=== PATIENT | female | born 1955 | race Caucasian/White ===

== ENCOUNTER → 2019-08-05 09:35 | Outpatient (BNVA) | payer MEDICARE, BC, SELFPAY | PROVIDERS: Family Provider Family Medicine; PCP Family Medicine; Visit Provider Urology | DX: N30.20 Other chronic cystitis without hematuria (principal) | CPT/HCPCS: 81001 ==

== ENCOUNTER → 2019-11-05 09:23 | Outpatient (BNVA) | payer MEDICARE, BC, SELFPAY | PROVIDERS: Family Provider Family Medicine; PCP Family Medicine; Visit Provider Urology | DX: N30.20 Other chronic cystitis without hematuria (principal) | CPT/HCPCS: 80053; 81001; 87077; 87086; 87186 ==

== ENCOUNTER → 2019-12-16 09:03 | Outpatient (BNVA) | payer MEDICARE, BC, SELFPAY | PROVIDERS: Family Provider Family Medicine; PCP Family Medicine; Visit Provider Urology | DX: N30.20 Other chronic cystitis without hematuria (principal) | CPT/HCPCS: 81001 ==

== ENCOUNTER 2020-05-16 13:00 | Outpatient (CLI) | payer MEDICARE, BC, SELFPAY ==
--- NOTE | 2020-05-16 13:08 | MM_ITS ---
WS: [id number] BILATERAL DIGITAL SCREENING MAMMOGRAPHY WITH CAD CLINICAL INFORMATION: SCREENING HISTORY: Screening mammogram. No current complaints. COMPARISON: February 20, 2018 TECHNIQUE: Bilateral CC and MLO views. FINDINGS: Scattered fibroglandular densities bilaterally. No suspicious focal mass, asymmetry, calcifications, or architectural distortion. No evidence of malignancy. MM/[place] [address] IMPRESSION: BI-RADS: 1-Negative FOLLOW UP: 1 Year Follow-up Recommend return to annual screening mammography.
== END 2020-05-16 13:01 | disposition home or self-care (01) ==
LOC: RADSHAW 13:04
PROVIDERS: Family Provider Family Medicine; PCP Family Medicine; Visit Provider Family Medicine
DX: Z12.31 Encounter for screening mammogram for malignant neoplasm of breast (principal)
CPT/HCPCS: 77067

== ENCOUNTER → 2020-05-23 14:41 | Outpatient (BNVA) | payer MEDICARE, BC, SELFPAY | PROVIDERS: Family Provider Family Medicine; PCP Family Medicine; Visit Provider Urology | DX: N30.20 Other chronic cystitis without hematuria (principal); N81.89 Other female genital prolapse; N39.41 Urge incontinence | CPT/HCPCS: 81003 ==

== ENCOUNTER → 2020-06-12 14:21 | Outpatient (BNVA) | payer MEDICARE, BC, SELFPAY | PROVIDERS: Family Provider Family Medicine; PCP Family Medicine; Visit Provider Obstetrics & Gynecology | DX: N81.10 Cystocele, unspecified (principal); N30.20 Other chronic cystitis without hematuria; N39.41 Urge incontinence; N81.89 Other female genital prolapse | CPT/HCPCS: 81000 ==

== ENCOUNTER → 2020-06-29 12:06 | Outpatient (BNVA) | payer MEDICARE, BC, SELFPAY | PROVIDERS: Family Provider Family Medicine; PCP Family Medicine; Visit Provider Obstetrics & Gynecology | DX: Z01.812 Encounter for preprocedural laboratory examination (principal) | CPT/HCPCS: 87635 ==

== ENCOUNTER 2020-07-05 08:59 | Observation (INO) | payer MEDICARE, BC, SELFPAY ==
[2020-07-03 11:16] VITALS: BMI 25.2
--- NOTE | 2020-07-03 11:38 | ANES.PREANE2 ---
Pre-Anesthetic Assessment Pre-Anesthetic Assessment: Height/Weight: Height 1.63 m Weight 66.678 kg Preop Diagnosis: Cystocele stage II, incontinence, chronic cystitis Proposed Procedure: Operation Date: 07/05/20 07:00 Proposed Procedures p Anterior Repair Anterior Colporrhaphy [id number] N81.10(Not Applicable) - Tiago Tamez MD s Sling(Not Applicable) - Tiago Tamez MD Familial anesthetic complications: None Social: Comment: former smoker Exam: Pre-Anes Outpt Exam: alert, oriented x 3, clear to auscultation bilaterally and regular rate & rhythm Airway: MP: 1 Dentition: Other (crowns) GI: GI: GERD Musc/skel: Musc/skel: Lower Back Pain Anesthetic Plan: ASA status: 1 Anesthesia: General Risk of > 500 ml blood loss (7ml/kg in children): No PFSH Anesthesia PFSH: Medical History Chronic cystitis Gastro-esophageal reflux disease without esophagitis Pelvic floor relaxation Urgency incontinence Surgical History (Updated 07/03/20 @ 08:28 by Razia Guillory RN) S/P hysterectomy Family History Father , at age 54 CAD (coronary artery disease) Hypertension Stroke Mother , at age 87 Dementia Thyroid condition Brother Hyperlipidemia Heart disease Denies family history of Colon cancer Ovarian cancer Diabetes Breast cancer Anesthesia complication Bleeding disorder Uterine cancer Social History (Updated 07/03/20 @ 08:28 by Razia Guillory RN) Smoking and tobacco status: former smoker Quit status (tobacco): has quit using tobacco Year quit tobacco: 2006 Alcohol intake: current Alcohol intake frequency: 0-2 Drinks per Day Substance/Drug Use: never Data Anesthesia Cardiac Studies: No Data to Display
[2020-07-03 12:22] LABS: Basophils % 0.6 %; Eosinophils # 0.1 10^3/uL (0.0-0.8); Eosinophils % 1.6 %; Hematocrit 42.3 % (37.0-47.0); Hemoglobin 13.7 g/dL (11.5-15.3); Lymphocytes # 2.3 10^3/uL (0.8-4.8); Lymphocytes % 35.7 %; Mean Corpuscular HGB Conc 32.4 g/dL (30.0-36.0); Mean Corpuscular Hemoglobin 32.3 pg (28.0-34.0); Mean Corpuscular Volume 99.8 fL (81-99); Mean Platelet Volume 10.8 fL (7.4-10.4); Monocytes # 0.4 10^3/uL (0.2-0.9); Monocytes % 6.9 %; Nucleated Red Blood Cells % 0 %; Platelet Count 236 10^3/cmm (130-400); Red Blood Count 4.24 10^6/uL (4.1-5.3); Red Cell Distribution Width 12.7 % (12.1-15.1); White Blood Count 6.4 10^3/uL (4.0-10.0)
[2020-07-03 12:29] LABS: Alanine Aminotransferase 15 U/L (0-33); Albumin Level 4.3 g/dL (3.5-5.2); Alkaline Phosphatase 61 IU/L (35-105); Aspartate Amino Transferase 23 U/L (0-32); Blood Urea Nitrogen 13 mg/dL (8-23); Calcium 9.1 mg/dL (8.5-10.5); Carbon Dioxide 27 mmol/L (22-29); Chloride 104 mmol/L (98-107); Globulin 2.4 g/dL (1.3-4.6); Glomerular Filtration Rate 83.7 mL/min (90-130); Glucose 81 mg/dL (65-115); Osmolality Calculated 287 mOsm/kg (285-295); Sodium 139 mmol/L (136-145); Total Bilirubin 0.3 mg/dL (0.15-1.2); Total Protein 6.7 g/dL (6.6-8.7)
[2020-07-03 12:34] LABS: Add Urine Microscopic? YES; Bilirubin Urine Neg (Negative); Blood Urine Neg (Negative); Glucose Urine UA Norm (Normal); Ketones Urine Negative (Negative); Leukocyte Esterase Urine 2+ (Negative); Nitrate Urine Negative (Negative); Protein Urine Neg (Negative); Specific Gravity, Urine 1.015 (1.005-1.030); Urine Appearance Clear (CLEAR); Urine Color Dark Yellow (Yellow); Urobilinogen Urine Norm (Negative); pH Urine 7 (5-7)
[2020-07-03 12:41] LABS: Add Urine Culture? No; Bacteria Urine 1+ /hpf
[2020-07-05] VITALS (17 sets, daily range): BP systolic 98–143; BP diastolic 53–89; PULSE 62–104; RESP 15–20; TEMP 36.4–36.9; O2SAT 92–100
[2020-07-05] MEDS: scopolamine 1.5 Patch 1 PATCH TRANSDERMA (06:33)
[2020-07-05] MEDS: sodium chloride 0.9% 500 ML IV (06:33)
--- NOTE | 2020-07-05 06:34 | P.ANESUD_ITS ---
Pre-Anesthetic Update Pre-Anesthetic Assessment: Date of Surgery/Procedure: 07/05/20 Preop Cece gnosis: Cystocele stage II, incontinence, chronic cystitis Proposed Procedure: Operation Date: 07/05/20 07:00 Proposed Procedures p Anterior Repair Anterior Colporrhaphy [id number] N81.10(Not Applicable) - Tiago Tamez MD s Sling(Not Applicable) - Tiago Tamez MD Any changes to Pre-Anesthetic Assessment?: No Last Intake: Intake Last Liquid Date 07/04/20 Last Liquid Time 21:00 Last Solid Date 07/04/20 Last Solid Time 17:30 Labs Last 48hrs: Laboratory Results - last 48 hr 07/03/20 07/03/20 07/03/20 11:25 11:30 11:30 WBC 6.4 RBC 4.24 Hgb 13.7 Hct 42.3 MCV 99.8 H MCH 32.3 MCHC 32.4 RDW 12.7 Plt Count 236 MPV 10.8 H Neut % (Auto) 55.0 Lymph % (Auto) 35.7 [place] % (Auto) 6.9 Eos % (Auto) 1.6 Baso % (Auto) 0.6 Neut # (Auto) 3.50 Lymph # (Auto) 2.3 [place] # (Auto) 0.4 Eos # (Auto) 0.1 Baso # (Auto) 0.0 Nucleated RBC % (a uto) 0 Nucleated RBCs # 0.0 Sodium 139 Potassium 4.0 Chloride 104 Carbon Dioxide 27 Anion Gap 12.0 BUN 13 Creatinine 0.7 GFR Calculation 83.7 L Glucose 81 Calculated Osmolal ity 287 Calcium 9.1 Total Bilirubin 0.3 AST 23 ALT 15 Alkaline Phosphata se 61 Total Protein 6.7 Albumin 4.3 Globulin 2.4 Urine Color Dark yellow Urine Appearance Clear Urine pH 7 Ur Specific Gravit y 1.015 Urine Protein Neg Urine Glucose (UA) Norm Urine Ketones Negative Urine Blood Neg Urine Nitrate Negative Urine Bilirubin Neg Urine Urobilinogen Norm Ur Leukocyte Yuridia ase 2+ H Urine RBC None Urine WBC 5-10 H Ur Squamous Epith Cells 5-10 H Ur Transition Epit h Cell 5-10 Amorphous Sediment Not Reportable Urine Bacteria 1+ H Blood Type Rho(D) Type Antibody Screen 07/03/20 11:30 WBC RBC Hgb Hct MCV MCH MCHC RDW Plt Count MPV Neut % (Auto) Lymph % (Auto) [place] % (Auto) Eos % (Auto) Baso % (Auto) Neut # (Auto) Lymph # (Auto) [place] # (Auto) Eos # (Auto) Baso # (Auto) Nucleated RBC % (a uto) Nucleated RBCs # Sodium Potassium Chloride Carbon Dioxide Anion Gap BUN Creatinine GFR Calculation Glucose Calculated Osmolal ity Calcium Total Bilirubin AST ALT Alkaline Phosphata se Total Protein Albumin Globulin Urine Color Urine Appearance Urine pH Ur Specific Gravit y Urine Protein Urine Glucose (UA) Urine Ketones Urine Blood Urine Nitrate Urine Bilirubin Urine Urobilinogen Ur Leukocyte Yuridia ase Urine RBC Urine WBC Ur Squamous Epith Cells Ur Transition Epit h Cell Amorphous Sediment Urine Bacteria Blood Type O Positive Rho(D) Type Positive Antibody Screen Negative Vitals: Temperature 97.6 F 07/05/20 06:08 Temperature Source Temporal Artery S can 07/05/20 06:08 Pulse Rate 62 07/05/20 06:08 Respiratory Rate 18 07/05/20 06:08 Blood Pressure 143/89 07/05/20 06:08 Blood Pressure Kimberly n 107 07/05/20 06:08 Pulse Oximetry 98 07/05/20 06:08 Oxygen Delivery Me thod 07/05/20 06:08 Exam: Pre-Anes Outpt Exam: alert, oriented x 3, clear to auscultation bilate rally and regular rate & rhythm Cardiac Studies: No Data to Display
--- NOTE | 2020-07-05 06:44 | W.PM.OPSUD ---
Surgery/Procedure H&P Update DATE OF PROCEDURE: July 05, 2020 DATE H&P PERFORMED: 07/03/20 H&P UPDATE INFORMATION: I have reviewed H&P completed within last 30 days, I have examined patient prior to procedure and No changes to prior documentation PREOP DIAGNOSIS: Cystocele stage II, incontinence, chronic cystitis PLANNED PROCEDURE: Operation Date: 07/05/20 07:00 Proposed Procedures p Anterior Repair Anterior Colporrhaphy [id number] N81.10(Not Applicable) - Tiago Tamez MD s Sling(Not Applicable) - Tiago Tamez MD
[2020-07-05] MEDS: sodium chloride 0.9% 1,000 ML 30 ML IV (06:58)
[2020-07-05] MEDS: estrogens Conjugated Cream 30 gm 1 APPLIC VAGINAL (08:02)
--- NOTE | 2020-07-05 08:10 | PM.OP ---
Operative Report Date of procedure: July 05, 2020 Pre-op Diagnosis: Cystocele stage II, incontinence, chronic cystitis Post-op diagnosis: same Procedure Done: Anterior colporrhaphy augmented with allograft. Single incision mid urethral sling. Implants: Coloplast single incision sling Surgeon: Tiago Tamez MD Anesthesia: General Estimated blood loss (mL): 50 IV fluids (mL): 700 Urine output (mL): 200 Complications: None Condition: stable Disposition: PACU Brief History: 59-year-old female with a cystocele stage II with incontinence and chronic cystitis Procedure: Anterior colporrhaphy w Metristem After obtaining informed consent, the patient was taken to the operating room and placed in the supine position, given general anesthesia, and prepped and draped in sterile fashion. The abdomen, vulva and vagina were prepped and draped in a sterile manner. A time out procedure was performed. The anterior vaginal mucosa beneath the midurethra was infiltrated with 0.5% Marcaine with epinephrine. A vertical midline incision was made beneath the midurethra, nearly 1.5 cm length. Careful submucosal dissection was performed bilaterally up to the interior portion of the inferior pubic ramus. The insertion of adductor longus tendon on the patient?s pubic ramus was identified as reference land jt. Palpated the notch along the internal edge of ischiopubic ramus where the adductor longus tendon and the inferior pubic ramus meet. The needle of the Coloplast single incision sling inserted aiming at the location of this notch. One of the integrated self-fixating tips place onto the needle by sliding it over the end of the needle. The needle/sling assembly was inserted toward the location of identified reference notch making sure that the flat of the handle is perpendicular to the desired path. The needle was tracked along the posterior surface of the ischiopubic ramus until the midline jt on the mesh is approximately at the midline position under the urethra. The needle was removed and the same was repeated on the contralateral side until the appropriate sling tension under the urethra was achieved ensuring that the mesh lays flat. The needle was removed and vaginal incision was closed in a running interlocking fashion with 2-0 Vicryl. The vaginal mucosa was then injected in the midline with normal saline. The vaginal mucosa was scored in the midline with the Bovie approximately .05 cm medial from SIS repaired to 1 cm distal to the vaginal cuff. This vaginal mucosa was then undermined and then incised in the midline with the Metzenbaum scissors. The lateral aspects of the vaginal mucosa were then grasped with the Allis clamps and the vaginal mucosa was then dissected off the underlying fascia with the Metzenbaum scissors. Again, there was noted to be quite a bit of oozing at the incision, which was controlled with cautery. After adequate dissection was performed, bilaterally. A Coloplast allograft is modified at time of application to fit spacea, 3 x 3 cm piece . The Coloplast allograft placed in front of cystocele ready to be implanted with the Basement Membrane facing the vagina mucosa. Suture is placed at distal end of graft and placed towards vaginal cuff. Final suture is placed on proximal portion of the graft to complete the placement overlying the bladder. Then Interrupted vertical mattress sutures of 0 Vicryl were used to elevate the cystocele superiorly. The excessive vaginal mucosa was then trimmed with the Metzenbaum scissors and the vaginal mucosa was then reapproximated in the running interlocking fashion with 2-0 Vicryl. Then the Reyes catheter was removed and cystoscope was inserted. The bladder was filled with sterile water. Complete evaluation of the bladder mucosa was performed noting no lacerations, dimpling, tears, bleeding of the mucosa or muscular layers. Both ureteral orifices were identified. Prompt excretion of urine from both ureteral orifices was noted. Cystoscope was withdrawn. The Reyes catheter was replaced. Excellent hemostasis was obtained. A vaginal pack is placed overnight as postoperative support for the vaginal tissues after graft placement and closure of vaginal incisions. Sponge, lap, needle, and instrument counts were correct times three. The patient was taken to the recovery room, awake and in stable condition.
--- NOTE | 2020-07-05 08:20 | SUR.PHASEI ---
0818- ORAL AIRWAY OUT, SIMPLE MASK AT 6LPM SAT 100%
[2020-07-05] MEDS: ketorolac 30 mg/mL INJ IVP ×2 (13:26→19:33)
[2020-07-05] MEDS: dextrose 5%-lactated ringers 1,000 ML 125 ML IV (14:02)
--- NOTE | 2020-07-05 14:59 | ANE.PACU2 ---
Inpatient post-anesthesia follow up: Airway intact: Yes Vital signs: Temperature 98.4 F Pulse Rate 87 Respiratory Rate 19 Blood Pressure 98/77 Pulse Oximetry 98 Oxygen Delivery Me thod Room Air Oxygen Flow Rate 6 Fraction of Inspir ed Oxygen Hydration adequate: Yes Nausea and vomiting: No Pain level: 3 Mental status: Baseline
[2020-07-05] MEDS: nitrofurantoin SR (BID) 100 mg Capsule PO (17:11)
[2020-07-05] MEDS: acetaminophen 325 mg Tablet 650 MG PO (17:11)
[2020-07-05] MEDS: docusate sodium 100 mg Capsule PO (17:12)
[2020-07-06 04:50] VITALS: BP 121/73; PULSE 63; RESP 16; O2SAT 97
--- NOTE | 2020-07-06 06:15 | PC.NURSE ---
vaginal packing removed per MD orders at 0605. Pt. tolerated well.
--- NOTE | 2020-07-06 06:56 | PC.NURSE ---
This RN attempted to obtain hemagram at 0505, unable to draw specimen. Notified lab at 0515, spoke with Taryn. She stated that she would put a not on the supercharger repair supervisor desk. Contacted Lab again at 0600, Taryn stated that the supercharger repair supervisor were not back. Checked with lab again at 0640, supercharger repair supervisor asked if the order was stat, this nurse stated that the order was for 0500. Behavioral Health Rn stated that she would be right over
[2020-07-06 07:13] LABS: Hematocrit 38.5 % (37.0-47.0); Hemoglobin 12.4 g/dL (11.5-15.3); Mean Corpuscular HGB Conc 32.2 g/dL (30.0-36.0); Mean Corpuscular Hemoglobin 32.3 pg (28.0-34.0); Mean Corpuscular Volume 100.3 fL (81-99); Mean Platelet Volume 10.2 fL (7.4-10.4); Platelet Count 199 10^3/cmm (130-400); Red Blood Count 3.84 10^6/uL (4.1-5.3); Red Cell Distribution Width 12.8 % (12.1-15.1)
[2020-07-06] MEDS: ibuprofen 800 mg tablet PO (07:54)
[2020-07-06] MEDS: nitrofurantoin SR (BID) 100 mg Capsule PO (08:48)
[2020-07-06] MEDS: escitalopram 10 mg Tablet PO (08:48)
[2020-07-06] MEDS: docusate sodium 100 mg Capsule PO (08:48)
[2020-07-06] MEDS: meloxicam 7.5 mg tablet PO (08:48)
[2020-07-06] MEDS: oxybutynin chloride XL 5 MG TABLET 10 MG PO (08:48)
[2020-07-06] MEDS: buPROPion SR (12 HR) 100 mg Tablet PO (08:49)
[2020-07-06 10:27] VITALS: BP 107/68; PULSE 76; RESP 18; TEMP 36.5; O2SAT 95
--- NOTE | 2020-07-06 11:09 | PM.OBGYDC ---
Discharge Providers [employer] Date of Admission: 07/05/20 08:59 Date of Discharge: 07/06/20 Attending Provider at Admission: Tiago Tamez MD Attending Provider at Discharge: Tiago Tamez MD Primary Care Provider: Elizabeth West MD Diagnoses at Discharge Discharge Diagnosis (1) Pelvic floor relaxation: Status: Acute (2) POP-Q stage 2 cystocele: Status: Acute Reason for Visit Reason for Visit: cystocele Hospital Course Hospital Course 61-year-old female with a cystocele stage II admitted for planned anterior colporrhaphy augmented with allograft and single incision mid urethral sling. The procedures were performed without complications. Overnight observation was uneventful. Urine output adequate. Tolerating diet well. Ambulating without difficulty. She is afebrile hemodynamically stable. Physical Exam Narrative: EXAM NARRATIVE: GA: Alert and oriented ?3. HEENT: WNL. Heart: Regular rate and rhythm. Lungs: Clear to auscultation bilaterally. Abdomen: Bowel sounds present, nontender MANNEQUIN MAKER: Spotting. Extremities: No edema, no cyanosis, no calves pain. Urinary Catheter Management^: Reyes: Cath Placed During This Visit: yes, but has since been removed by the nurse Reason for Continuing Indwelling Catheter: Decision to DC Catheter Urinary Catheter Date of Insertion: 07/05/20 Urinary Catheter Time of Insertion: 07:20 Date Urinary Catheter Removed: 07/06/20 Time Urinary Catheter Discontinued: 06:05 Discharge Data Data Completed and Pending: Pending at discharge Category Date Time Status ES surgery / GI i mages Routine Exams 07/05/20 06:42 Taken Retype for Patiet s ABO/Rh Routine Lab 07/03/20 13:03 Received Labs from last 24 hours 07/06/20 07:05 WBC 13.0 H RBC 3.84 L Hgb 12.4 Hct 38.5 MCV 100.3 H MCH 32.3 MCHC 32.2 RDW 12.8 Plt Count 199 MPV 10.2 Vitals: Last Vital Signs Temp 97.7 F 07/06/20 10:27 Pulse 76 07/06/20 10:27 Resp 18 07/06/20 10:27 BP 107/68 07/06/20 10:27 Pulse Ox 95 07/06/20 10:27 Discharge Plan Discharge Patient Disposition: Home Condition: Stable Prescriptions: New hydrocodone-acetaminophen [Pierz] 5-325 mg tablet 1 tab PO Q4H PRN (Reason: pain) Qty: 20 RF: 0 ibuprofen 800 mg tablet 800 mg PO TID PRN (Reason: pain) Qty: 60 RF: 0 acetaminophen 325 mg capsule 325 mg PO Q4H PRN (Reason: fever or pain) Qty: 60 RF: 0 Continued up4 Probiotics Adult 15 billion cell capsule 1 cap PO DAILY RF: 0 mecobalamin (vitamin B12) 1,000 mcg tablet,disintegrating 1,000 mcg SUBLINGUAL QDAY RF: 0 biotin 1 mg capsule 1 mg PO QDAY RF: 0 One-A-Day Women's 50 Plus 400-20 mcg tablet 1 tab PO QDAY RF: 0 bupropion HCl 150 mg tablet extended release 24 hr 100 mg PO QAM RF: 0 oxybutynin chloride 10 mg tablet extended release 24hr 10 mg PO DAILY RF: 0 escitalopram oxalate [Lexapro] 10 mg tablet 10 mg PO DAILY RF: 0 meloxicam 7.5 mg tablet 7.5 mg PO DAILY RF: 0 Yuridia-C with Bioflavonoids 1,000-200 mg tablet 1 tab PO DAILY RF: 0 nitrofurantoin monohyd/m-cryst 100 mg capsule See Rx Instructions .ROUTE .COMPLEX RF: 0 Discharge Orders: Discharge Order (Routine); Ordered 07/06/20 Ordered By: Tiago Tamez Referrals: Tiago Tamez MD [Physician] - 07/14/20 9:15 am (* Your incision check is with Dr. Tamez on 07/14/2020 at 9:15am * Your 6 week follow up appointment is with Dr. Tamez on 08/18/2020 a 8:45am. ) Discharge Diet: Usual diet Discharge Activity: Increase activity as tolerated Patient Instructions: Cystoscopy, Anterior Vaginal Repair (DC), Bladder Sling Procedures (DC), OB Discharge Report, OB Food/Drug Interaction Guide Activity Restrictions/Additional Instructions: 1. Please call [facility] on next working day to make your post-operative appointment in 2 weeks. 2. Please stay home until you come back to the clinic on first post-operative check up. 3. Please follow instructions on your medications CAREFULLY. 4. If you have abdominal incision, do not cover it unless dressing is necessary because of drainage. OK to shower, but avoid bath. Leave steri-strips until they fall off. If they are still on one week after surgery, you may remove them. 5. If you had vaginal surgery, your doctor may instruct you to take SITZ bath. 6. Yellow, blood tinged odorous vaginal discharge is usually normal after hysterectomy or vaginal surgeries. 7. No sexual intercourse, tampons, or douches until you are completely released from the post-operative care. 8. Avoid constipation by eating right and maybe using some Metamucil or Milk of Magnesia. 9. All prescription refills are given during the working hours. Please do no wait till it runs out. Call the clinic at [phone] before your medication runs out. The clinic will get in touch with your doctor to prescribe medications if necessary. 10. Please remain within 40 mile radius from our hospital because emergencies do happen now and then during the post-operative period. 11. If you have stairs at home, take one step at a time slowly and minimize the number of trips. It helps to stay in one floor for the next few days. No lifting except what you can lift by one hand until you are released from the post-operative care. 12. Driving is discouraged until you are well healed. It may be 3-4 weeks before you feel strong enough to drive. You should be able to turn and look through the rear window without pain and you should be able to push the brake pedal very hard without pain before you drive. No fast rules, but SAFETY should be your primary concern. DO NOT drive if you are on sedating medications such as narcotics. 13. Call the clinic (during working hours) to make urgent appointment or go to the Emergency room, if any of the following occurs: i. Vaginal bleeding becomes heavy, more than a period. ii. Incision becomes red and sore, or drains pus. iii. Your temperature is over 100.4 or you have chill. iv. IV site becomes red and swollen (a little ``knot?? is usually OK) v. Persistent nausea and vomiting vi. Persistent constipation or diarrhea vii. Rash or allergic reaction to medications. Discharge Attestations [employer] Time Spent in Discharge Care*: greater than 30 min Coding Level of Care Code Acute Side Stitcher for g Fwd Diagnoses Pelvic floor relaxation N81.89 POP-Q stage 2 cystocele N81.10
--- NOTE | 2020-07-06 12:05 | PC.NURSE ---
Patient and were educated on pericare for hernandez, they were also instructed on how to use leg bag if patient chooses to use it. Patient was given leg bag, peribottle, urine hat at time of discharge. Educated that she needs to follow up in clinic with Dr Tamez on Friday.
[2020-07-06 13:26] VITALS: BP 105/67; PULSE 80; RESP 18; TEMP 36.8; O2SAT 96
== END 2020-07-06 13:25 | disposition home or self-care (01) ==
LOC: OBGYN 09:00
PROVIDERS: Admitting Provider Obstetrics & Gynecology; PCP Family Medicine; Visit Provider Obstetrics & Gynecology
PROC: 0JQC0ZZ Repair Pelvic Region Subcutaneous Tissue and Fascia, Open Approach (ICD-10-PCS; CPT 57240; principal; 2020-07-05 07:00)
PROC: (CPT 57288; 2020-07-05 07:00)
PROC: 0TJB8ZZ Inspection of Bladder, Via Natural or Artificial Opening Endoscopic (ICD-10-PCS; CPT 52000; 2020-07-05 07:00)
DX: N81.10 Cystocele, unspecified (principal); R32 Unspecified urinary incontinence; N30.20 Other chronic cystitis without hematuria; Z87.891 Personal history of nicotine dependence
CPT/HCPCS: 57240; 57267; 57288; 12345; 36415; 51702; 51798; 80053; 81001; 85025; 85027; 86850; 86900; 96361; 96365; 96375; C1713; C1762; G0378; J0690; J1100; J1885; J2704; J3010; J3490; J7030; J7040

== ENCOUNTER 2020-12-25 11:01 | Outpatient (CLI) | payer MEDICARE, BC, SELFPAY ==
--- NOTE | 2020-12-25 11:29 | CT_ITS ---
WS: [id number] Exam: CT head wo con* [id number] Date/Time of Exam: 12/25/2020 11:31 AM Reason For Exam: WORSENING HEADACHE DLP: 925.[address] scans at [facility] use at least one of these dose optimization techniques: automat ed exposure control; mA and/or kV adjustment per patient size (includes targeted exams where dose is matched to clinical indication); or iterative reconstruction. No sign of acute intracranial bleed or space-occupying mass. The ventricles and basal cisterns are no rmal in size. No extra-axial fluid collections are seen. The skull is intact. The facial sinuses are clear. Trace amount of fluid in the right mastoids. The left mastoids are clear. CT/CT head wo con* [id number] IMPRESSION: 1. Unremarkable noncontrast CT scan of the brain. 2. Trace amount of fluid in the right mastoids
== END 2020-12-25 11:02 | disposition home or self-care (01) ==
PROVIDERS: PCP Family Medicine; Visit Provider Family Medicine
DX: R51.9 Headache, unspecified (principal)
CPT/HCPCS: 70450

== ENCOUNTER → 2021-02-19 15:00 | Outpatient (BNVA) | payer MEDICARE, BC, SELFPAY | PROVIDERS: PCP Family Medicine; Visit Provider Podiatrist Foot & Ankle Surgery | DX: M77.32 Calcaneal spur, left foot (principal); M79.672 Pain in left foot | CPT/HCPCS: 73630 ==

== ENCOUNTER → 2021-03-05 10:53 | Outpatient (BNVA) | payer MEDICARE, BC, SELFPAY | PROVIDERS: PCP Family Medicine; Visit Provider Obstetrics & Gynecology | DX: N30.20 Other chronic cystitis without hematuria (principal) | CPT/HCPCS: 81000 ==

== ENCOUNTER → 2021-04-06 09:33 | Outpatient (BNVA) | payer MEDICARE, BC, SELFPAY | PROVIDERS: PCP Family Medicine; Visit Provider Obstetrics & Gynecology | DX: N81.6 Rectocele (principal); Z20.822 Contact with and (suspected) exposure to COVID-19 | CPT/HCPCS: 87635 ==

== ENCOUNTER 2021-04-11 12:56 | Observation (INO) | payer MEDICARE, BC, SELFPAY ==
[2021-04-09 10:15] VITALS: BMI 24.5
--- NOTE | 2021-04-09 10:36 | ECG_ITS ---
[facility] Test Date: 2021-04-09 Pat Name: Sarahi Anton Department: Room: Gender: Female Rubber Press Tender: : 1955 Requested By: Cesar Petit Order Number: [id number] Yasmin MD: Ritchie Stephens M.D. Measurements Intervals Four States Rate: 65 P: 41 ID: 200 QRS: -35 QRSD: 98 T: -17 QT: 419 QTc: 436 Interpretive Statements SINUS RHYTHM WITH FREQUENT SUPRAVENTRICULAR PREMATURE COMPLEXES LEFT AXIS DEVIATION [QRS AXIS < -30] PATTERN CONSISTENT WITH PULMONARY DISEASE MODERATE VOLTAGE CRITERIA FOR LVH, CONSIDER NORMAL VARIANT [MEETS CRITERIA IN ONE OF: R(aVL), S(V1), R(V5), R(V5/V6)+S(V1)] No previous ECG available for comparison Electronically Signed On 04-09-2021 16:46:09 MARKETING PROFESSIONAL by Ritchie Stephens M.D. [id number]
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
[2021-04-09 11:42] LABS: Add Urine Microscopic? NO; Charge for UA Resulting for Rev
[2021-04-09 12:15] LABS: Bilirubin Urine Neg (Negative); Blood Urine Neg (Negative); Glucose Urine UA Norm (Normal); Ketones Urine Negative (Negative); Leukocyte Esterase Urine Negative (Negative); Nitrate Urine Negative (Negative); Protein Urine Neg (Negative); Specific Gravity, Urine 1.005 (1.005-1.030); Urine Appearance Clear (CLEAR); Urine Color Yellow (Yellow); Urobilinogen Urine Norm (Negative); pH Urine 7 (5-7)
[2021-04-09 12:17] LABS: Basophils % 0.3 %; Eosinophils # 0.1 10^3/uL (0.0-0.8); Eosinophils % 1.2 %; Hematocrit 41.5 % (37.0-47.0); Hemoglobin 13.6 g/dL (11.5-15.3); Lymphocytes # 2.3 10^3/uL (0.8-4.8); Lymphocytes % 30.5 %; Mean Corpuscular HGB Conc 32.8 g/dL (30.0-36.0); Mean Corpuscular Volume 100.7 fl (81-99); Mean Platelet Volume 10.8 fL (7.4-10.4); Monocytes # 0.6 10^3/uL (0.2-0.9); Monocytes % 7.9 %; Neutrophils # 4.49 10^3/uL (1.8-7.7); Nucleated Red Blood Cells % 0 %; Platelet Count 235 10^3/cmm (130-400); Red Blood Count 4.12 10^6/uL (4.1-5.3); White Blood Count 7.5 10^3/uL (4.0-10.0)
[2021-04-09 12:38] LABS: Alanine Aminotransferase 16 U/L (0-33); Albumin Level 4.3 g/dL (3.5-5.2); Alkaline Phosphatase 65 IU/L (35-105); Anion Gap 17.1 (5-19); Aspartate Amino Transferase 22 U/L (0-32); Blood Urea Nitrogen 13 mg/dL (8-23); Calcium 9.2 mg/dL (8.5-10.5); Carbon Dioxide 25 mmol/L (22-29); Chloride 102 mmol/L (98-107); Globulin 2.6 g/dL (1.3-4.6); Glomerular Filtration Rate 83.7 mL/min (90-130); Glucose 84 mg/dL (65-115); Osmolality Calculated 289 mOsm/kg (285-295); Potassium 4.1 mmol/L (3.5-5.1); Sodium 140 mmol/L (136-145); Total Bilirubin 0.3 mg/dL (0.15-1.2); Total Protein 6.9 g/dL (6.6-8.7)
[2021-04-11] VITALS (20 sets, daily range): BP systolic 99–129; BP diastolic 53–80; PULSE 55–106; RESP 14–33; TEMP 36.1–36.8; O2SAT 89–99
--- NOTE | 2021-04-11 08:20 | ANES.PAUD2 ---
Pre-Anesthetic Update Pre-Anesthetic Assessment: Date of Surgery/Procedure: 04/11/21 Preop Diagnosis: Cystocele stage II, incontinence, chronic cystitis Proposed Procedure: Operation Date: 04/11/21 09:15 Proposed Procedures p Posterior Repair Posterior Colporrhaphy [id number] N81.6(Not Applicable) - Tiago Tamez MD s Sacrospinous Ligament Suspension(Not Applicable) - Tiago Tamez MD Any changes to Pre-Anesthetic Assessment?: No Last Intake: Intake Last Liquid Date 04/10/21 Last Liquid Time 21:00 Last Solid Date 04/10/21 Last Solid Time 21:00 Labs Last 48hrs: Laboratory Results - last 48 hr 04/09/21 04/09/21 04/09/21 11:10 11:10 11:10 WBC 7.5 RBC 4.12 Hgb 13.6 Hct 41.5 MCV 100.7 H MCH 33.0 MCHC 32.8 RDW 13.0 Plt Count 235 MPV 10.8 H Neut % (Auto) 60.0 Lymph % (Auto) 30.5 Hanson % (Auto) 7.9 Eos % (Auto) 1.2 Baso % (Auto) 0.3 Neut # (Auto) 4.49 Lymph # (Auto) 2.3 Hanson # (Auto) 0.6 Eos # (Auto) 0.1 Baso # (Auto) 0.0 Nucleated RBC % (a uto) 0 Nucleated RBCs # 0.0 Sodium 140 Potassium 4.1 Chloride 102 Carbon Dioxide 25 Anion Gap 17.1 BUN 13 Creatinine 0.7 GFR Calculation 83.7 L Glucose 84 Calculated Osmolal ity 289 Calcium 9.2 Total Bilirubin 0.3 AST 22 ALT 16 Alkaline Phosphata se 65 Total Protein 6.9 Albumin 4.3 Globulin 2.6 Urine Color Urine Appearance Urine pH Ur Specific Gravit y Urine Protein Urine Glucose (UA) Urine Ketones Urine Blood Urine Nitrate Urine Bilirubin Urine Urobilinogen Ur Leukocyte Yuridia ase Blood Type O Positive Rho(D) Type Positive Antibody Screen Negative 04/09/21 11:15 WBC RBC Hgb Hct MCV MCH MCHC RDW Plt Count MPV Neut % (Auto) Lymph % (Auto) Hanson % (Auto) Eos % (Auto) Baso % (Auto) Neut # (Auto) Lymph # (Auto) Hanson # (Auto) Eos # (Auto) Baso # (Auto) Nucleated RBC % (a uto) Nucleated RBCs # Sodium Potassium Chloride Carbon Dioxide Anion Gap BUN Creatinine GFR Calculation Glucose Calculated Osmolal ity Calcium Total Bilirubin AST ALT Alkaline Phosphata se Total Protein Albumin Globulin Urine Color Yellow Urine Appearance Clear Urine pH 7 Ur Specific Gravit y 1.005 Urine Protein Neg Urine Glucose (UA) Norm Urine Ketones Negative Urine Blood Neg Urine Nitrate Negative Urine Bilirubin Neg Urine Urobilinogen Norm Ur Leukocyte Yuridia ase Negative Blood Type Rho(D) Type Antibody Screen Vitals: Temperature 98.2 F 04/11/21 07:59 Temperature Source Temporal Artery S can 04/11/21 07:59 Pulse Rate 68 04/11/21 07:59 Respiratory Rate 18 04/11/21 07:59 Blood Pressure 129/80 04/11/21 07:59 Blood Pressure Kimberly n 96 04/11/21 07:59 Pulse Oximetry 97 04/11/21 07:59 Oxygen Delivery Me thod 04/11/21 08:06 Exam: Pre-Anes Outpt Exam: alert, oriented x 3, clear to auscultation bilaterally and regular rate & rhythm Cardiac Studies: No Data to Display
[2021-04-11] MEDS: scopolamine 1.5 Patch 1 PATCH TRANSDERMA (08:44)
[2021-04-11] MEDS: sodium chloride 0.9% 500 ML IV (08:45)
--- NOTE | 2021-04-11 09:05 | W.PM.OPSUD ---
Surgery/Procedure H&P Update DATE OF PROCEDURE: April 11, 2021 DATE H&P PERFORMED: 07/03/20 H&P UPDATE INFORMATION: I have reviewed H&P completed within last 30 days, I have examined patient prior to procedure and No changes to prior documentation PREOP DIAGNOSIS: Cystocele stage II, incontinence, chronic cystitis PLANNED PROCEDURE: Operation Date: 04/11/21 09:15 Proposed Procedures p Posterior Repair Posterior Colporrhaphy [id number] N81.6(Not Applicable) - Tiago Tamez MD s Sacrospinous Ligament Suspension(Not Applicable) - Tiago Tamez MD
[2021-04-11] MEDS: estrogens Conjugated Cream 30 gm 30 APPLIC (10:24)
--- NOTE | 2021-04-11 10:48 | P.OP_ITS ---
Operative Report Date of procedure: April 11, 2021 Pre-op Diagnosis: Cystocele stage II, incontinence, chronic cystitis Post-op diagnosis: same Procedure Done: Posterior colporrhaphy and sacrospinous fixation Pathology: none sent Surgeon: Tiago Tamez MD Anesthesia: General Estimated blood loss (mL): 10 IV fluids (mL): 600 Urine output (mL): 600 Complications: none Findings: Rectocele stage 3 with vaginal cuff prolapse Condition: stable Disposition: PACU Procedure: After obtaining informed consent, the patient was taken to the operating room and placed in the supine position, given general anesthesia, and prepped and draped in sterile fashion. The abdomen, vulva and vagina were prepped and draped in a sterile manner. A time out procedure was performed. A Reyes catheter was placed. The posterior vaginal mucosa is opened in the routine fashion as described previ ously in Posterior Repair. A dilute 2% lidocaine with epi solution was infiltrated under the posterior vaginal mucosa midline and into the perineal body. A transverse incision was cut in the perineum. The posterior vaginal wall was opened vertically and midline up to the apex of the rectocele/vaginal cuff. The cut edges were held and splayed laterally with a series of Allis -clamps. The open vaginal mucosa was then dissected laterally with a combination of sharp and blunt dissection, exposing the perirectal fascia. A finger is inserted through the incision in the posterior vaginal mucosa, dissecting out the rectovaginal space (RVS). The right rectal pillar (RRP) is identified. The rectal pillar can be bluntly perforated either with the finger or with the tip of a long Barbara clamp. A Breisky-Navratil retractor is used for exposing the rectovaginal space in order to enter the pararectal space with retraction of the cardinal ligament, vagina, and rectum. Displacing the rectum to the left and the cardinal ligament and ureter anteriorly. A sponge dissector is used to bluntly dissect the sacrospinous ligament removing areolar tissue. The ischial spine was palpated directly, and a area approximately 2 cm medial to the spine was selected for insertion of the Anchorsure transvaginal sacrospinous fixation system. One end of the suture of Anchoresure system inserted through the sacrospinous ligament is placed through the muscular layer of the vagina. In a similar manner, the second suture is placed. The opposite end of the suture in the sacrospinous ligament is left free and held on a small hemostat. Then traction on this suture will draw the vaginal vault directly to the ligament, where a square knot affixes it to the sacrospinous ligament. After the alejandro stich is tied the second safety stich is tied. Then the posterior colporrhaphy/vaginal repair is carried out in routine fashion. The perirectal fascia was then reapproximated with interrupted #2-0 Vicryl sutures to draw the lateral folds together and tuck the rectocele back. Deep interrupted sutures of #0 Vicryl were used to reapproximate the fibers of the levator ani muscles. Rectal exams were repeated throughout the repair and at the end to ensure there were no sutures penetrating rectal tissue. The excess vaginal mucosa was trimmed. The posterior vaginal wall was closed with a running locked #0 Vicryl to the hymenal tags. The superficial perineal muscles were closed with running unlocked #0 Vicryl and the perineal skin was closed with running subcuticular #2-0 Vicryl.
[2021-04-11] MEDS: dextrose 5%-lactated ringers 1,000 ML 125 ML IV ×2 (14:09→22:59)
[2021-04-11] MEDS: ketorolac 30 mg/mL INJ IVP ×2 (14:09→20:58)
[2021-04-11] MEDS: HYDROcodone-acetaminophen 5-325 mg Tablet PO (14:57)
--- NOTE | 2021-04-11 15:40 | ANE.PACU2 ---
Inpatient post-anesthesia follow up: Airway intact: Yes Vital signs: Temperature 97.0 F Pulse Rate 72 Respiratory Rate 15 Blood Pressure 99/69 Pulse Oximetry 99 Oxygen Delivery Me thod Room Air Oxygen Flow Rate Fraction of Inspir ed Oxygen Hydration adequate: Yes Nausea and vomiting: No Pain level: 2 Mental status: Baseline
[2021-04-11] MEDS: docusate sodium 100 mg Capsule PO (16:47)
[2021-04-12] VITALS: BP 98/58; PULSE 72; RESP 18; TEMP 36.9; O2SAT 96
[2021-04-12] MEDS: ketorolac 30 mg/mL INJ IVP (02:32)
[2021-04-12 04:00] VITALS: BP 97/62; PULSE 78; RESP 19; TEMP 37.1; O2SAT 95
[2021-04-12 05:36] LABS: Hematocrit 36.1 % (37.0-47.0); Hemoglobin 11.7 g/dL (11.5-15.3); Mean Corpuscular HGB Conc 32.4 g/dL (30.0-36.0); Mean Corpuscular Hemoglobin 32.7 pg (28.0-34.0); Mean Corpuscular Volume 100.8 fl (81-99); Mean Platelet Volume 10.4 fL (7.4-10.4); Platelet Count 186 10^3/cmm (130-400); Red Blood Count 3.58 10^6/uL (4.1-5.3)
[2021-04-12] MEDS: buPROPion SR (12 HR) 100 mg Tablet PO (06:44)
[2021-04-12] MEDS: acetaminophen 325 mg Tablet 650 MG PO (06:44)
--- NOTE | 2021-04-12 06:52 | PC.NURSE ---
D/S MORENO AND VAGINAL PACKING: THE PATIENT HAD HER MORENO AND VAGINAL PACKING REMOVED. PATIENT TOLERATED WELL. SCANT AMOUNT OF BLEEDING NOTED VAGINALLY. JERMAN CARE PROVIDED.
[2021-04-12 08:00] VITALS: BP 103/61; PULSE 68; RESP 16; TEMP 36.6; O2SAT 98
--- NOTE | 2021-04-12 08:59 | PM.OBGYDC ---
Discharge Providers IT PROGRAMMER Date of Admission: 04/11/21 12:56 Date of Discharge: 04/12/21 Attending Provider at Admission: Tiago Tamez MD Attending Provider at Discharge: Tiago Tamez MD Primary Care Provider: Elizabeth West MD Reason for Visit Reason for Visit: posterior repair Hospital Course Hospital Course Mrs. Anton 65 y/o female with a history of rectocele stage III and vaginal vault prolapse, admitted for planned posterior colporrhaphy with sacrospinous fixation. The procedures were performed without complications. She is afebrile and hemodynamically stable postoperative day 1. Tolerating diet well. Ambulating without difficulty. Pain under control. Patient was advised and counseled regarding pelvic rest, no heavy lifting greater than 10 lbs and soft mechanical diet for the next couple of weeks. Physical Exam Narrative: EXAM NARRATIVE: GA: Alert and oriented ?3. HEENT: WNL. Heart: Regular rate and rhythm. Lungs: Clear to auscultation bilaterally. Abdomen: Bowel sounds present, nontender ENTERPRISE SECURITY ARCHITECT: Spotting bleeding. Extremities: No edema, no cyanosis, no calves pain. Urinary Catheter Management^: Reyes: Cath Placed During This Visit: yes Urinary Catheter Date of Insertion: 04/11/21 Urinary Catheter Time of Insertion: 09:49 History History History 3 Term 3 Miscarriages/Ectopic 0 0 Living Children 3 Discharge Data Data Completed and Pending: Labs from last 24 hours 04/12/21 05:07 WBC 8.0 RBC 3.58 L Hgb 11.7 Hct 36.1 L MCV 100.8 H MCH 32.7 MCHC 32.4 RDW 13.0 Plt Count 186 MPV 10.4 Vitals: Last Vital Signs Temp 97.9 F 04/12/21 08:00 Pulse 68 04/12/21 08:00 Resp 16 04/12/21 08:00 BP 103/61 04/12/21 08:00 Pulse Ox 98 04/12/21 08:00 Discharge Plan Discharge Patient Disposition: Home Condition: Stable Prescriptions: New ibuprofen 800 mg tablet 800 mg PO TID PRN (Reason: pain) Qty: 60 RF: 0 hydrocodone-acetaminophen 5-325 mg tablet 1 tab PO Q4H PRN (Reason: pain) Qty: 20 RF: 0 Colace 100 mg capsule 100 mg PO BID Qty: 60 RF: 0 acetaminophen 325 mg capsule 325 mg PO Q4H PRN (Reason: fever or pain) Qty: 60 RF: 0 Continued up4 Probiotics Adult 15 billion cell capsule 1 cap PO DAILY RF: 0 mecobalamin (vitamin B12) 1,000 mcg tablet,disintegrating 1,000 mcg SUBLINGUAL QDAY RF: 0 biotin 1 mg capsule 1 mg PO QDAY RF: 0 One-A-Day Women's 50 Plus 400-20 mcg tablet 1 tab PO QDAY RF: 0 bupropion HCl 150 mg tablet extended release 24 hr 100 mg PO QAM RF: 0 oxybutynin chloride 10 mg tablet extended release 24hr 10 mg PO DAILY RF: 0 escitalopram oxalate [Lexapro] 10 mg tablet 10 mg PO DAILY RF: 0 Yuridia-C with Bioflavonoids 1,000-200 mg tablet 1 tab PO DAILY RF: 0 nitrofurantoin monohyd/m-cryst 100 mg capsule See Rx Instructions .ROUTE .COMPLEX RF: 0 ibuprofen 800 mg tablet 800 mg PO TID PRN (Reason: pain) Qty: 60 RF: 0 hydrocodone-acetaminophen [[place]] 5-325 mg tablet 1 tab PO Q4H PRN (Reason: pain) Qty: 20 RF: 0 acetaminophen 325 mg capsule 325 mg PO Q4H PRN (Reason: fever or pain) Qty: 60 RF: 0 Discharge Orders: Discharge Order (Routine); Ordered 04/12/21 Ordered By: Tiago Tamez Referrals: Tiago Tamez MD [Physician] - 2 weeks Discharge Diet: GI Soft and Soft Mechanical Discharge Activity: Increase activity as tolerated Patient Instructions: Opioid Safety Activity Restrictions/Additional Instructions: 1. Please call [facility] on next working day to make your post-operative appointment in 2 weeks. 2. Please stay home until you come back to the clinic on first post-operative check up. 3. Please follow instructions on your medications CAREFULLY. 4. If you have abdominal incision, do not cover it unless dressing is necessary because of drainage. OK to shower, but avoid bath. Leave steri-strips until they fall off. If they are still on one week after surgery, you may remove them. 5. If you had vaginal surgery or vaginal repair, Dr. Tamez may instruct you to take SITZ bath. 6. Yellow, blood tinged odorous vaginal discharge is usually normal after hysterectomy or vaginal surgeries. 7. No sexual intercourse, tampons, or douches until you are completely released from the post-operative care. 8. Avoid constipation by eating right and maybe using some Metamucil or Milk of Magnesia. 9. All prescription refills are given during the working hours. Please do no wait till it runs out. Call the clinic at [phone] before your medication runs out. The clinic will get in touch with your doctor to prescribe medications if necessary. 10. Please remain within 40 mile radius from our hospital because emergencies do happen now and then during the post-operative period. 11. If you have stairs at home, take one step at a time slowly and minimize the number of trips. It helps to stay in one floor for the next few days. No lifting except what you can lift by one hand until you are released from the post-operative care. 12. Driving is discouraged until you are well healed. It may be 3-4 weeks before you feel strong enough to drive. You should be able to turn and look through the rear window without pain and you should be able to push the brake pedal very hard without pain before you drive. No fast rules, but SAFETY should be your primary concern. DO NOT drive if you are on sedating medications such as narcotics. 13. Call the clinic (during working hours) to make urgent appointment or go to the Emergency room, if any of the following occurs: i. Vaginal bleeding becomes heavy, more than a period. ii. Incision becomes red and sore, or drains pus. iii. Your temperature is over 100.4 or you have chill. iv. IV site becomes red and swollen (a little ``knot?? is usually OK) v. Persistent nausea and vomiting vi. Persistent constipation or diarrhea vii. Rash or allergic reaction to medications. Discharge Attestations IT PROGRAMMER Time Spent in Discharge Care*: less than 30 min Coding Level of Care Code Acute Cabinet Maker for Noemi Meier
[2021-04-12] MEDS: docusate sodium 100 mg Capsule PO (09:59)
[2021-04-12] MEDS: escitalopram 10 mg Tablet PO (09:59)
--- NOTE | 2021-04-12 10:06 | PC.NUTR ---
Nutrition assessment and interview completed per nurse request. Pt reports her physician encouraged her to be on a low-fiber/low-residue diet s/p surgery, however she has received a mechanical soft diet. Offered nutrition education related to low fiber/residue diet, however pt declined at this time, stating she is familiar. Pt anticipates discharge before lunch, however if still in facility, recommend change to GI soft diet. See full RD assessment for further details.
--- NOTE | 2021-04-12 10:53 | PC.NURSE ---
Addendum entered by Karla Moreno RN 04/12/21 10:57: offered for patient to stay until she was able to void, but patient was eager to leave. Original Note: patient verbalized understanding of discharge instructions, home medications, and follow up appointments. Patient has not been able to void since catheter was removed. Dr. Tamez aware, and says patient is okay to be discharged without voiding.
[2021-04-12 10:56] VITALS: BP 103/61; PULSE 68; RESP 16; TEMP 36.6; O2SAT 98
== END 2021-04-12 10:58 | disposition home or self-care (01) ==
LOC: MEDSURG 12:56
PROVIDERS: Admitting Provider Obstetrics & Gynecology; PCP Family Medicine; Visit Provider Obstetrics & Gynecology
PROC: (CPT 57250; principal; 2021-04-11 09:05)
PROC: (CPT 57282; 2021-04-11 09:05)
DX: N81.6 Rectocele (principal); N30.20 Other chronic cystitis without hematuria; R32 Unspecified urinary incontinence; K21.9 Gastro-esophageal reflux disease without esophagitis; Z87.891 Personal history of nicotine dependence; Z90.710 Acquired absence of both cervix and uterus
CPT/HCPCS: 57250; 57282; 36415; 80053; 81003; 85025; 85027; 86850; 86900; 93005; 96365; G0378; J0690; J1885; J2704; J2710; J3010; J3490; J7040

== ENCOUNTER → 2021-06-19 08:22 | Outpatient (BNVA) | payer MEDICARE, BC, SELFPAY | PROVIDERS: PCP Family Medicine; Visit Provider Physician Assistant | DX: M54.9 Dorsalgia, unspecified (principal) | CPT/HCPCS: 72120 ==

== ENCOUNTER 2021-08-13 12:42 | Outpatient (CLI) | payer MEDICARE, BC, SELFPAY ==
--- NOTE | 2021-08-13 12:50 | MR_ITS ---
WS: [id number] MRI LUMBAR SPINE WITH CONTRAST TECHNIQUE: Sagittal T1, T2 and STIR imaging. Axial T1 and T2 imaging. Post gadolinium imaging was obt ained. CLINICAL INFORMATION: M54.9 - Dorsalgia, unspecified COMPARISON: None. FINDINGS: Mild lumbar curve. No acute compression. No high-grade central canal stenosis. Tarlov cysts in the sa mojgan. Disc space narrowing worse at L4-L5 and L5-S1. Degenerative endplate edema at L4-L5. Slight ant erolisthesis L4 on L5 measuring 4.4 mm. No acute compression fractures. L1-L2: Mild annular bulging. Mild facet arthropathy. Spinal canal and foramen are patent. L2-L3: Mild annular bulging with slight narrowing of the subarticular recess bilaterally. Mild facet arthropathy. Mild LEFT foraminal narrowing. L3-L4: Mild annular bulging with slight effacement of ventral thecal sac. Slight narrowing of the sub articular recess bilaterally. Mild facet arthropathy. Foramen are patent. L4-L5: Prior postoperative changes RIGHT hemilaminectomy. Slight anterolisthesis L4 on L5. RIGHT fora jeferson protrusion with impingement on the exiting RIGHT L4 nerve root. Moderate RIGHT foraminal narrow ing. Mild central canal stenosis with slight impingement on the traversing RIGHT L5 nerve root. LEFT foramen is patent. Moderate facet arthropathy. L5-S1: Shallow central protrusion with slight impingement RIGHT greater than LEFT traversing S1 nerve roots. Mild central canal stenosis. Mild facet arthropathy. Mild LEFT foraminal narrowing. RIGHT for amen is patent. Visualized pelvic bony structures: Normal. Paravertebral soft tissues: Normal. MR/MR lumbar spine wo/w con [id number] IMPRESSION: 1. Prior postoperative changes RIGHT L4-L5 hemilaminectomy with mild residual central canal stenosis. Slight impingement traversing right L5 nerve root in t he subarticular recess. 2. RIGHT foraminal protrusion L4-L5 impinges the exiting RIGHT L4 nerve root w ith moderate RIGHT foraminal narrowing. Slight anterolisthesis L4 on L5 measuri ng 4.4 mm. 3. RIGHT pericentral protrusion L5-S1 impinges the traversing RIGHT S1 nerve r oot in the subarticular recess. Recommend correlation for S1 nerve root symptom s. 4. Mild LEFT L5-S1 foraminal narrowing.
== END 2021-08-13 12:43 | disposition home or self-care (01) ==
LOC: RAD 12:45
PROVIDERS: PCP Family Medicine; Visit Provider Orthopaedic Surgery
DX: Z98.890 Other specified postprocedural states (principal); M51.26 Other intervertebral disc displacement, lumbar region; M51.27 Other intervertebral disc displacement, lumbosacral region
CPT/HCPCS: 72158

== ENCOUNTER 2021-09-26 16:54 | Inpatient (IN) | payer MEDICARE, BC, SELFPAY ==
[2021-09-21 09:24] VITALS: BMI 25.7
--- NOTE | 2021-09-21 09:36 | ECG_ITS ---
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 Measurements Intervals Dalton Rate: 67 P: 39 NC: 177 QRS: -32 QRSD: 91 T: -15 QT: 401 QTc: 425 Interpretive Statements SINUS RHYTHM WITH SINUS ARRHYTHMIA LEFT AXIS DEVIATION [QRS AXIS < -30] LOW QRS VOLTAGE IN PRECORDIAL LEADS [QRS DEFLECTION < 1.0 mV IN CHEST LEADS] PATTERN CONSISTENT WITH PULMONARY DISEASE SEPTAL MYOCARDIAL INFARCTION , PROBABLY OLD [40+ ms Q WAVE IN V1/V2] Compared to ECG 04/09/2021 11:09:20 Low QRS voltage now present Myocardial infarct finding now present Electronically Signed On 09-21-2021 23:32:28 CDT by Lazarus Dowd M.D. [id number]
[2021-09-21 09:57] LABS: Basophils % 0.6 %; Eosinophils # 0.1 10^3/uL (0.0-0.8); Eosinophils % 1.2 %; Hematocrit 40.1 % (37.0-47.0); Hemoglobin 13.1 g/dL (11.5-15.3); Lymphocytes # 1.8 10^3/uL (0.8-4.8); Lymphocytes % 36.6 %; Mean Corpuscular HGB Conc 32.7 g/dL (30.0-36.0); Mean Corpuscular Hemoglobin 32.1 pg (28.0-34.0); Mean Corpuscular Volume 98.3 fl (81-99); Mean Platelet Volume 10.2 fL (7.4-10.4); Monocytes # 0.4 10^3/uL (0.2-0.9); Monocytes % 8.5 %; Neutrophils # 2.56 10^3/uL (1.8-7.7); Neutrophils % 52.9 %; Nucleated Red Blood Cells % 0 %; Platelet Count 215 10^3/cmm (130-400); Red Blood Count 4.08 10^6/uL (4.1-5.3); Red Cell Distribution Width 12.9 % (12.1-15.1); White Blood Count 4.8 10^3/uL (4.0-10.0)
[2021-09-21 10:24] LABS: Anion Gap 14.4 (5-19); Blood Urea Nitrogen 11 mg/dL (8-23); Calcium 8.1 mg/dL (8.5-10.5); Carbon Dioxide 24 mmol/L (22-29); Chloride 106 mmol/L (98-107); Creatinine Clr Calc Pharmacy 64.6738; Glomerular Filtration Rate 71.5 mL/min (90-130); Glucose 85 mg/dL (65-115); Osmolality Calculated 289 mOsm/kg (285-295); Potassium 4.4 mmol/L (3.5-5.1); Sodium 140 mmol/L (136-145)
--- NOTE | 2021-09-21 12:31 | P.ANESASSM_ITS ---
Pre-Anesthetic Assessment Height/Weight: Height 1.63 m Weight 68.039 kg Preop Diagnosis: Cystocele stage II, incontinence, chronic cystitis Operation Date: 09/26/21 11:40 Proposed Procedures p L4 to sacrum instrumed fusion w/ interbody left sided cage at L5/S1 [id number]/M48.062(Not Applicable) - Sadi Hernandez DO Familial anesthetic complications: Patient reports a hx of post op uvula swelling with difficulty speaking/swa llowing Was Beta Yared taken within 24 hours: N/A Was Clonidine taken within 24 hours: N/A Social No alcohol and No tobacco Exam alert, oriented x 3, clear to auscultation bilaterally and regular rate & rhythm Airway Submandibular: within normal limits Cervical ROM: within normal limits Mallampati: Class I Comments: Comments: Missing teeth Pulmonary None reported CV/HEM None reported Uterine prolapse Chronic cystitis Hepatic None reported GI Gastroesophageal Reflux Disease (well controlled ) Metabolic None reported Musc/skel Osteoarthritis/DJD DDD Spinal stenosis with neurogenic claudication Neuropsych None reported Anesthetic Plan ASA status: 2 Anesthesia: Anesthesia Evaluation and General Other: We discussed risk and benefits of general anesthesia including PONV, sore throat (sometimes severe), corneal abrasion, positioning and peripheral nerve injuries, life threatening allergic reaction, post operative ICU admission requiring prolonged intubation, stroke, heart attack, , and rare incidences of recall. Patient consents to proceed with general anesthesia. Risk of > 500 ml blood loss (7ml/kg in children): No Medications/Allergies Home Medications Medication Instructions Recorded Confirmed Last Taken Type biotin 1 mg capsule 1 mg PO QDAY 06/25/19 09/21/21 04/10/21 History mecobalamin (vitamin B12) 1,000 1,000 mcg SUBLINGUAL QDAY 06/25/19 09/21/21 1 06/10/20 History mcg disintegrating tablet,sublingual xhwdfbqnsnyr-bldqzlms-lmzfaum-folic 1 tab PO QDAY 06/25/19 09/21/21 04/10/21 History acid 400 mcg-vit K1 20 mcg tablet (One-A-Day Women's 50 Plus) Lactobacillus 1 cap PO DAILY cap 11/05/19 09/21/21 04/10/21 History acidophil,plantar-Bifido no.7 15 billion cell capsule (up4 Probiotics Adult) oxybutynin chloride 10 mg 10 mg PO DAILY 05/23/20 09/21/21 04/10/21 History tablet,extended release 24 hr ascorbate calcium-bioflavonoid 1 tab PO DAILY tab 06/12/20 09/21/21 04/10/21 History 1,000 mg-200 mg tablet (Yuridia-C with Bioflavonoids) bupropion HCl 150 mg 24 hr tablet, 100 mg PO QAM tab 06/12/20 09/21/21 04/10/21 History extended release escitalopram oxalate 10 mg tablet 10 mg PO DAILY 06/12/20 09/21/21 04/10/21 History (Lexapro) nitrofurantoin See Rx Instructions .ROUTE 04/09/21 09/21/21 04/10/21 History monohydrate/macrocrystals 100 mg .COMPLEX cap capsule (Macrobid) acetaminophen 325 mg capsule 325 mg PO Q4H PRN #60 cap 04/12/21 09/21/21 Unknown Rx mineral oil 5 ml PO DAILY ml 05/21/21 09/21/21 Unknown History cyclobenzaprine 10 mg tablet 10 mg PO PRN PRN 09/21/21 09/21/21 Unknown History lithium carbonate 300 mg capsule 300 mg PO QPM 09/21/21 09/21/21 Unknown History Allergies Allergy/AdvReac Type Severity Reaction Status Date / Time No Known Allergies Allergy Verified 09/21/21 09:18 [facility] Anesthesia Medical History Adenocarcinoma of cervix Aftercare following surgery of the genitourinary system Aftercare following surgery of the genitourinary system [place]-Walker grade 3 rectocele Chronic cystitis Gastro-esophageal reflux disease without esophagitis Pelvic floor relaxation Urgency incontinence Surgical History H/O colonoscopy H/O rectocele repair 04/11/2021- posterior colporrhaphy and sacrospinous fixation performed by Dr. Tamez at [facility] H/O vaginal surgery 07/05/2020-anterior colporrhaphy augmented with allograft and single incision mid urethral sling, performed by Dr. Tamez at [facility] H/O vaginal surgery Anterior colporrhaphy augmented with allograft. Single incision mid urethral sling preformed on 07/05/[address] Tamez at [facility] History of facelift Hx of foot surgery bilateral Hx of hand surgery rt S/P hysterectomy Status post abdominoplasty Family History Father , at age 54 CAD (coronary artery disease) Hypertension Stroke Mother , at age 87 Dementia Thyroid condition Brother Hyperlipidemia Heart disease Denies family history of Colon cancer Ovarian cancer Diabetes Breast cancer Anesthesia complication Bleeding disorder Uterine cancer Social History Smoking and tobacco status: never smoked Quit status (tobacco): has quit using tobacco Year quit tobacco: 2006 Alcohol intake: current Alcohol intake frequency: 0-2 Drinks per Day Data Anesthesia : 09/21/21 09:40 09/21/21 09:40 Short CBC 09/21/21 Range/Units 09:40 WBC 4.8 (4.0-10.0) 10^3/uL Hgb 13.1 (11.5-15.3) g/dL Hct 40.1 (37.0-47.0) % MCV 98.3 (81-99) fl Plt Count 215 (130-400) 10^3/cmm Neut % (Auto) 52.9 % Neut # (Auto) 2.56 (1.8-7.7) 10^3/uL BMP 09/21/21 09:40 Sodium 140 Potassium 4.4 Chloride 106 Carbon Dioxide 24 BUN 11 Creatinine 0.8 Glucose 85 Calcium 8.1 L Cardiac Studies: No Data to Display
[2021-09-26] VITALS (43 sets, daily range): BP systolic 65–144; BP diastolic 44–80; PULSE 54–88; RESP 14–22; TEMP 35.8–37.3; O2SAT 93–100
--- NOTE | 2021-09-26 | SCC_ITS ---
Procedure done: 1. L4/5 Interbody fusion with posterolateral fusion 2. L5/S1 Interbody fusion with posterolateral fusion 3. Instrumentation L4-pelvis 4. Lumbopelvic istrumentation 5. Cage at L4/5 6. Cage at L5/S1 7. revison Laminectomy L4 with partial facetectomies L4/5 for decompression of nerve 8. L5 laminectomy with partial facetectomies L5/S1 for decompression of nerve 9. Use of computer navigation/ stereotactic for spine 10. use of autograft from same incision 11. allograft 12. Bone marrow aspirate from iliac crest on right 16 seconds of fluoroscopic guidance, for a cumulative dose of 25.5 mGy, was provided to Dr. Hernandez by the radiology department. C-arm images of the lumbar spine were saved for the patient's permanent record. DEBBIED
--- NOTE | 2021-09-26 | XR_ITS ---
WS: [id number] Lumbar spine, C-arm fluoroscopy, 09/26/2021 Clinical Data: spinal stenosis, lumbar region Comparison: None. Findings: Dr. Hernandez performed a posterior lumbosacral fusion. XR/XR lumbar spine 2-3V* [id number] Impression: Posterior lumbar sacral fusion.
--- NOTE | 2021-09-26 10:23 | W.PM.OPSUD ---
Surgery/Procedure H&P Update DATE OF PROCEDURE: September 26, 2021 DATE H&P PERFORMED: 08/28/20 H&P UPDATE INFORMATION: I have reviewed H&P completed within last 30 days, I have examined patient prior to procedure and No changes to prior documentation PREOP DIAGNOSIS: Lumbar stenosis, DDD lumbar spine PLANNED PROCEDURE: Operation Date: 09/26/21 11:40 Proposed Procedures p L4 to sacrum instrumed fusion w/ interbody left sided cage at L5/S1 [id number]/M48.062(Not Applicable) - Sadi Hernandez DO
[2021-09-26] MEDS: sodium chloride 0.9% 1,000 ML 30 ML IV (10:35)
[2021-09-26] MEDS: midazolam 1 mg/mL INJ 2 mL 2 MG IVP (10:37)
--- NOTE | 2021-09-26 10:37 | P.ANESUD_ITS ---
Pre-Anesthetic Update Pre-Anesthetic Assessment: Date of Surgery/Procedure: 09/26/21 Preop Cece gnosis: Lumbar stenosis, DDD lumbar spine Proposed Procedure: Operation Date: 09/26/21 11:40 Proposed Procedures p L4 to sacrum instrumed fusion w/ interbody left sided cage at L5/S1 [id number]/[id number]/M48.062(Not Applicable) - Sadi Hernandez, DO Any changes to Pre-Anesthetic Assessment?: No Last Intake: Intake Last Liquid Date 09/25/21 Last Liquid Time 20:00 Last Solid Date 09/25/21 Last Solid Time 20:00 Vitals: Temperature 97.9 F 09/26/21 10:11 Temperature Source Temporal Artery S can 09/26/21 10:11 Pulse Rate 79 09/26/21 10:11 Respiratory Rate 18 09/26/21 10:11 Blood Pressure 144/80 09/26/21 10:11 Blood Pressure Kimberly n 101 09/26/21 10:11 Pulse Oximetry 97 09/26/21 10:11 Oxygen Delivery Me thod 09/26/21 10:16 Exam: Pre-Anes Outpt Exam: alert, oriented x 3, clear to auscultation bilaterally and regular rate & rhythm Cardiac Studies: No Data to Display
[2021-09-26] MEDS: vancomycin 1,000 MG SDV 1000 MG XX (11:42)
[2021-09-26] MEDS: heparin, porcine 1,000 unit/mL INJ 10 mL 10000 UNIT IRRIGATION (11:43)
[2021-09-26 14:12] LABS: Basophils % 0.3 %; Eosinophils # 0.1 10^3/uL (0.0-0.8); Eosinophils % 0.8 %; Hematocrit 30.8 % (37.0-47.0); Hemoglobin 10.1 g/dL (11.5-15.3); Lymphocytes # 1.2 10^3/uL (0.8-4.8); Lymphocytes % 17.5 %; Mean Corpuscular HGB Conc 32.8 g/dL (30.0-36.0); Mean Corpuscular Hemoglobin 32.2 pg (28.0-34.0); Mean Corpuscular Volume 98.1 fl (81-99); Mean Platelet Volume 10.4 fL (7.4-10.4); Monocytes # 0.2 10^3/uL (0.2-0.9); Monocytes % 2.9 %; Neutrophils # 5.14 10^3/uL (1.8-7.7); Neutrophils % 77.6 %; Nucleated Red Blood Cells % 0 %; Platelet Count 225 10^3/cmm (130-400); Red Blood Count 3.14 10^6/uL (4.1-5.3); Red Cell Distribution Width 12.9 % (12.1-15.1); White Blood Count 6.6 10^3/uL (4.0-10.0)
--- NOTE | 2021-09-26 15:09 | SUR.PHASEI ---
14:55 RECEIVED PATIENT FROM OR STAFF. RESPONDS TO VOICE. FOLLOWAS COMMANDS. VENTILATING WELL. ROM AND SENSATION ALL 4 EXTREMITIES. 15:00 O POSITIVE BLOOD STARTED DUE TO BLOOD LOSS IN SURGERY. DENIES PAIN AT THIS TIME.
--- NOTE | 2021-09-26 15:22 | P.OP_ITS ---
Operative Report Date of procedure: September 26, 2021 Pre-op diagnosis: Preop Diagnosis Lumbar stenosis, DDD lumbar spine Post-op diagnosis: same Procedure done: 1. L4/5 Interbody fusion with posterolateral fusion 2. L5/S1 Interbody fusion with posterolateral fusion 3. Instrumentation L4-pelvis 4. Lumbopelvic istrumentation 5. Cage at L4/5 6. Cage at L5/S1 7. revison Laminectomy L4 with partial facetectomies L4/5 for decompression of nerve 8. L5 laminectomy with partial facetectomies L5/S1 for decompression of nerve 9. Use of computer navigation/ stereotactic for spine 10. use of autograft from same incision 11. allograft 12. Bone marrow aspirate from iliac crest on right Surgeon: Sadi Hernandez Flavoring Oil Filterer: Augustin Breen Flavoring Oil Filterer: The ophthalmology surgical technician, Augustin Breen, PAC was needed for his expertise under the microscope. He was important and necessary throughout the procedure to complete in a safe and timely manner. He assisted with patient positioning prepping and draping tissue retraction suctioning of the operative field protection of the dural sac and tissue closure Estimated blood loss (mL): 1,300 Procedure: 1. L4/5 Interbody fusion with posterolateral fusion 2. L5/S1 Interbody fusion with posterolateral fusion 3. Instrumentation L4-pelvis 4. Lumbopelvic istrumentation 5. Cage at L4/5 6. Cage at L5/S1 7. revison Laminectomy L4 with partial facetectomies L4/5 for decompression of nerve 8. L5 laminectomy with partial facetectomies L5/S1 for decompression of nerve 9. Use of computer navigation/ stereotactic for spine 10. use of autograft from same incision 11. allograft 12. Bone marrow aspirate from iliac crest on right Patient is brought to the operative suite. After undergoing anesthesia, the patient had neuro monitoring attached. Patient was then placed in the prone position on the Terrence table. All areas of impingement were well-padded. Patient was then prepped and draped in the normal sterile fashion. Skin incision was then made over the L4 to the sacrum. Subperiosteal dissection was made out to the transverse processes of L4 bilaterally and L5 bilaterally, and out to the sacral ala's. S1-S2 level of the sacrum. Next attention was brought to the Nubefy bone marrow aspirate kit was used to aspirate bone marrow aspirate. This was done by using the sharp probe to open up the bone. Aspiration was performed and then the blunt probe was then used to dissect down to through the bone tunnel. An aspirating well drawn back a millimeter approximately 20 cc of bone marrow aspirate was used. Admixed with the allograft and autograft bone that will be used. Next attention was brought to placing the fiducial for the computer navigation. 2 K wire pins were placed in the right iliac crest. These were attached onto the fiducial. The C-arm was brought in and spun around the patient this information was loaded in the fiducial and into the computer. This was able to allow for the computer navigation. The technique for placing the pedicle screws was to use a drill followed by the gearshift probe linked to computer navigation Followed by the ball probe to feel the superior inferior medial lateral barnhart of the pedicles. Then placement of the screws with computer navigation Was done at each pedicle. Screws were placed at L4 bilaterally and L5 bilaterally and S1 bilaterally. Next attention was brought to placing the iliac screws. This was done by using the computer navigated probe going from the sacrum into the ala into the iliac wings. This was done bilaterally. Ensuring that the tulips of the screws were in line with the S1 screws. The gearshift was placed the pedicle feeler was placed a tap was used and then an 80 x 8.5 screw was used. Next attention was brought to performing the laminectomy ofL5. This was done using the high-speed bur Kerrisons and curettes. Once the lamina was removed and then attention was brought to performing a partial facetectomy on the contralateral side. This was done again using the high-speed bur curettes and Kerrisons. The ligamentum flavum was taken down bilaterally from L5 to S1. Attention was then brought to the facet on the ipsilateral side. The facet was taken down. The S1 nerve was decompressed as it passed around the S1 pedicle. The laminectomy was done for purposes of decompressing the nerve as well as placement of the cage. The L5 nerve was identified as it traversed through the L5/S1 foramen. The thecal sac was identified and retracted. The L5/S1 disc base was identified. Using a knife the disc base was opened. And then sequential selwyn were placed. The first shaver was a 6 and the last shaver was a 11. Using a pituitary and down going curette the endplates were scraped and disc material was removed from the space. Once adequate decompression of the disc base was felt to be had. Osteoamp sponge was packed into the anterior aspect of the disc base. Then a size 11 cage from [place] was placed after packing osteoamp into the cage. While placing the cage the thecal sac and S1 nerve was protected. C arm was used to ensure that the cages placed in the appropriate position. Next attention was brought to performing the laminectomy ofL4 this level had had a previous laminectomy done on the right side. The scar tissue was teased off of the dura and laminectomies carefully made around the site. This was done using the high-speed bur Kerrisons and curettes. Once the lamina was removed and then attention was brought to performing a partial facetectomy on the contralateral side. This was done again using the high-speed bur curettes and Kerrisons. The ligamentum flavum was taken down bilaterally from L4 to L5. Attention was then brought to the facet on the ipsilateral side. The facet was taken down. The L5 nerve was decompressed as it passed around the L5 pedicle. The laminectomy was done for purposes of decompressing the nerve as well as placement of the cage. The L4 nerve was identified as it traversed through the L4/5 foramen. The thecal sac was identified and retracted. The L4/5 disc base was identified. Using a knife the disc base was opened. And then sequential selwyn were placed. The first shaver was a 6 and the last shaver was a 9. Using a pituitary and down going curette the endplates were scraped and disc material was removed from the space. Once adequate decompression of the disc base was felt to be had. Osteoamp sponge was packed into the anterior aspect of the disc base. Then a size 9 cage from [place] was placed after packing osteoamp into the cage. While placing the cage the thecal sac and L5 nerve was protected. C arm was used to ensure that the cages placed in the appropriate position. Attention was then brought to attaching the rods to the screws placed in the L4 bilaterally, L5 bilaterally, S1 bilaterally and they were attached onto the iliac screws bilaterally. Caps were torqued into position. Locking the construct in place. Wound was copiously irrigated and then attention was brought to decorticating the facets and transverse processes laterally. Bone that was taken down from the lamina was used along with osteoamp fibers and sponges were packed into the lateral gutters along the facet joints. This was done bilaterally. Wound was then closed in a layered fashion starting with the thoracolumbar fascia. 0-vicryl was used the sub cutaneous tissue was closed with 2-0 vicryl and skin with 4-0 monocryl. Glue was then used to seal the skin and a steril dressing was applied. Patient was then placed in the supine position. The endotracheal tube was removed and patient was transferred to the PACU in stable condition.
--- NOTE | 2021-09-26 15:32 | SUR.PHASEI ---
BLOOD INFUSING WIDE OPEN.
[2021-09-26] MEDS: acetaminophen 1,000 MG/100 ML PIGGYBACK 400 MG IV (15:47)
[2021-09-26] MEDS: albumin 12.5 GM/50 ML VIAL IV (16:09)
[2021-09-26] MEDS: glycopyrrolate 0.2 mg/mL SDV 2 mL 0.4 MG IV (16:23)
--- NOTE | 2021-09-26 18:21 | ANE.PACU2 ---
Inpatient post-anesthesia follow up: Airway intact: Yes Vital signs: Temperature 97.3 F Pulse Rate 86 Respiratory Rate 18 Blood Pressure 101/62 Pulse Oximetry 99 Oxygen Delivery Me thod Nasal Cannula Oxygen Flow Rate 3 Fraction of Inspir ed Oxygen Hydration adequate: Yes Nausea and vomiting: Yes Pain level: 7 Mental status: Baseline Additional Comments: patient hypotensive, requiring albumin and NS bolus plus glycopyrrolate for low HR. Received blood transfusion (1 unit) for intraop blood loss with orders from Mary for second prbcs
[2021-09-26] MEDS: sodium chloride 0.9% (100 ml) 100 ML (18:32)
[2021-09-26] MEDS: ketorolac 30 mg/mL INJ IVP (18:42)
[2021-09-26] MEDS: nitrofurantoin SR (BID) 100 mg Capsule PO (18:43)
[2021-09-26] MEDS: docusate sodium 100 mg Capsule PO (18:43)
[2021-09-26] MEDS: lithium carbonate 300 mg Capsule PO (19:16)
[2021-09-26] MEDS: HYDROcodone-acetaminophen 5-325 mg Tablet PO (19:38)
[2021-09-26] MEDS: cyclobenzaprine 10 mg Tablet PO (21:54)
[2021-09-26] MEDS: ondansetron 2 mg/ML SDV 2 mL 4 MG IVP (23:37)
[2021-09-26] MEDS: morphine 4 mg/mL SDV 1 mL 2 MG IVP (23:39)
[2021-09-27] MEDS: lactated ringers 1,000 ML 90 ML IV ×2 (00:36→12:25)
[2021-09-27] MEDS: ketorolac 30 mg/mL INJ IVP ×2 (03:20→12:27)
[2021-09-27 04:00] VITALS: BP 97/63; PULSE 83; RESP 17; TEMP 37; O2SAT 96
[2021-09-27 06:29] LABS: Hematocrit 29.5 % (37.0-47.0); Hemoglobin 9.7 g/dL (11.5-15.3)
[2021-09-27 07:28] VITALS: BP 90/57; PULSE 89; RESP 18; TEMP 36.7; O2SAT 94
--- NOTE | 2021-09-27 08:20 | PM.PN ---
Subjective Subjective: POD 1 Patient resting comfortably. Reports back pain with improvement of leg symptoms. Denies any chest pain, shortness of breath, headaches. She has had difficult time with pain control through the night. Denies any lightheadedness or dizziness. Vitals/I&O/Wt Last Vital Signs Temp 98.1 F 09/27/21 07:28 Pulse 89 09/27/21 07:28 Resp 18 09/27/21 07:28 BP 90/57 09/27/21 07:28 Pulse Ox 94 09/27/21 07:28 09/26/21 09/27/21 09/27/21 22:59 06:59 14:59 Intake Total 2690 / 5240 900 / 6140 240 / 240 Output Total 550 / 1900 1020 / 2920 Balance 2140 / 3340 -120 / 3220 240 / 240 Weight last 48 hrs Weight 170 lb Physical Exam Narrative: Patient presents alert and oriented x3 with a good general appearance normal mood and affect. Normal coordination normal stability. Mild tenderness around the incisional site with the incision appear to be clean and dry. No signs of erythema or drainage. No signs of infection. Patient denies any fevers or chills. 5/5 motor strength both lower extremities with negative straight leg raise bilaterally. Calves are supple no medial thigh tenderness. Pulses are 2+ at the dorsalis pedis and posterior tibial region. Good capillary refill throughout normal sensation light touch both lower extremities. Hemovac drain with output of 470 mL over the last 24 hours. H&H 9.7 29.6 Urinary Catheter Management: Reyes: Cath Placed During This Visit: yes Reason for Continuing Indwelling Catheter: Acute Urinary Retention or Obstruction Urinary Catheter Date of Insertion: 09/26/21 Urinary Catheter Time of Insertion: 11:20 Data : 09/27/21 05:47 09/21/21 09:40 A&P Assessment and plan (1) Status post lumbar spinal fusion: Consult physical therapy work with mobilization. We will hold Hemovac drain today DC tomorrow. Discontinue Reyes catheter after physical therapy works with patient. Continue incentive spirometry for pulmonary toilet. Repeat H&H in the a.m. Hopeful discharge home tomorrow. Status: Acute (2) Acute blood loss as cause of postoperative anemia: Status: Acute Attestations Medical Necessity Statement*: DC tomorrow Coding Level of Care Code Acute [employer] for [employer]g [employer]wd Diagnoses Status post lumbar spinal fusion Z98.1 Acute blood loss as cause of postoperative anemia D62
[2021-09-27] MEDS: escitalopram 10 mg Tablet PO (08:42)
[2021-09-27] MEDS: nitrofurantoin SR (BID) 100 mg Capsule PO ×2 (08:42→17:45)
[2021-09-27] MEDS: docusate sodium 100 mg Capsule PO ×2 (08:42→17:45)
[2021-09-27] MEDS: acetaminophen 325 mg Tablet 650 MG PO ×3 (08:45→17:45)
[2021-09-27] MEDS: cyclobenzaprine 10 mg Tablet PO ×2 (08:45→20:30)
[2021-09-27] MEDS: oxybutynin chloride XL 5 MG TABLET 10 MG PO (09:28)
--- NOTE | 2021-09-27 10:26 | PC.CHAP ---
Pastoral Care Encounter/Spiritual Assessment Type of Contact [] Declined rural carrier associate visit [] Patient/Family/Request visit [] Outpatient visit [] Follow-up visit [] Physician referral [] Code/Alert [x] Routine visit [] Staff referral [] Actively dying [] Patient sleeping [] Family support [] [] Out of room [] Palliative care [] [x] Receiving care in room [] Pre-surgical visit [] Trauma [] Long length of stay [] ICU visit [] Other: Relational/Emotional Strength [x] Patient feels connected with others/family/visitors/staff [] Distress [] Loneliness/isolation [] Abandonment Spirituality of Patient [x] Person of Jaci [] Attends Advent of their Jaci [x] Believes in Prayer [] Reads Bible or Orthodox materials [] There are Spiritual issues to be addressed [place] Interventions [x] Prayer [x] Active listening [x] Non-anxious presence [x] Spiritual/emotional support [] Crisis/trauma care [x] Spiritual counseling [] Bereavement support [] Provided bereavement packet [] Provided Bible/devotional materials [] Provided toy/stuffed animal, coloring book to patient or family member [] Provided Communion [] Anointing/[facility] [] Salvation [x] Completed spiritual assessment [] Other: Impact on Illness or Injury [] Angry [] Fearful [x] Anxious [] Often cries [] Exhaustion [] Unable to work [] Unable to attend uatsdin [] Unable to walk/stand [] Unable to read [] Unable to drive [] Unable to eat/drink [] Unable to sleep [] Unable to be with family [] Patient intubated [] Other: Summary back surgery had a chyna in some pain has a postive attitude well be able to home and back to normal Time spent with patient 10 mins
[2021-09-27] MEDS: HYDROcodone-acetaminophen 5-325 mg Tablet PO ×3 (10:45→20:29)
[2021-09-27 12:00] VITALS: BP 97/62; PULSE 78; RESP 14; TEMP 36.7; O2SAT 94
[2021-09-27 16:00] VITALS: BP 95/59; PULSE 72; RESP 14; TEMP 36.6; O2SAT 96
[2021-09-27] MEDS: lithium carbonate 300 mg Capsule PO (17:45)
[2021-09-27 19:33] VITALS: BP 96/58; PULSE 86; RESP 17; TEMP 36.8; O2SAT 97
[2021-09-28] VITALS: BP 97/61; PULSE 72; RESP 16; TEMP 36.9; O2SAT 93
[2021-09-28] MEDS: lactated ringers 1,000 ML 90 ML IV ×2 (00:20→11:11)
[2021-09-28 03:12] LABS: Basophils % 0.3 %; Eosinophils # 0.1 10^3/uL (0.0-0.8); Eosinophils % 1.1 %; Hematocrit 27.5 % (37.0-47.0); Hemoglobin 8.8 g/dL (11.5-15.3); Lymphocytes # 2.3 10^3/uL (0.8-4.8); Mean Corpuscular Hemoglobin 32.1 pg (28.0-34.0); Mean Corpuscular Volume 100.4 fl (81-99); Mean Platelet Volume 10.4 fL (7.4-10.4); Monocytes # 0.8 10^3/uL (0.2-0.9); Monocytes % 9.7 %; Neutrophils # 4.75 10^3/uL (1.8-7.7); Neutrophils % 59.6 %; Nucleated Red Blood Cells % 0 %; Platelet Count 147 10^3/cmm (130-400); Red Blood Count 2.74 10^6/uL (4.1-5.3); Red Cell Distribution Width 14.2 % (12.1-15.1)
[2021-09-28 04:00] VITALS: BP 96/61; PULSE 67; RESP 17; TEMP 36.8; O2SAT 93
[2021-09-28] MEDS: HYDROcodone-acetaminophen 5-325 mg Tablet PO ×2 (06:14→12:45)
--- NOTE | 2021-09-28 06:45 | P.PN_ITS ---
Subjective Subjective: POD 2 Patient feeling okay complains of back pain. Has intermittent dizziness lightheadedness. Denies any chest pain, shortness of breath or headaches. Vitals/I&O/Wt Last Vital Signs Temp 98.3 F 09/28/21 04:00 Pulse 67 09/28/21 04:00 Resp 17 09/28/21 04:00 BP 96/61 09/28/21 04:00 Pulse Ox 93 09/28/21 04:00 09/27/21 09/27/21 09/28/21 14:59 22:59 06:59 Intake Total 1540 / 1540 380 / 1920 2040 / 3960 Output Total 1798 / 1798 610 / 2408 1260 / 3668 Balance -258 / -258 -230 / -488 780 / 292 Weight last 48 hrs Weight 170 lb Physical Exam Narrative: Patient presents alert and oriented x3 with a good general appearance normal mood and affect. Unsteady with coordination stability. Mild tenderness around the incisional site with the incision appear to be healing nicely. No signs of erythema or drainage. No signs of infection. Patient denies any fevers or chills. 5/5 motor strength both lower extremities with negative straight leg raise bilaterally. Calves are supple no medial thigh tenderness. Pulses are 2+ at the dorsalis pedis and posterior tibial region. Good capillary refill throughout normal sensation light touch both lower extremities. 300 mL out of Hemovac drain. Urinary Catheter Management: Reyes: Cath Placed During This Visit: yes, but has since been removed by the nurse Reason for Continuing Indwelling Catheter: Decision to DC Catheter Urinary Catheter Date of Insertion: 09/26/21 Urinary Catheter Time of Insertion: 11:20 Date Urinary Catheter Removed: 09/27/21 Time Urinary Catheter Discontinued: 13:22 Data : 09/28/21 02:50 09/21/21 09:40 A&P Assessment and plan (1) Acute blood loss as cause of postoperative anemia: We will discontinue the get her up with physical therapy. We will place her on Niferex 150 mg 1 tablet PO BID for Anemia. CBC in AM. Hold DC until tomorrow. Status: Acute (2) Status post lumbar spinal fusion: Status: Acute Attestations Medical Necessity Statement*: hold DC until tomorrow Coding Level of Care Code Acute Salesperson [employer] for Noemi Meier Diagnoses Acute blood loss as cause of postoperative anemia D62 Status post lumbar spinal fusion Z98.1
[2021-09-28 08:00] VITALS: BP 97/57; PULSE 81; RESP 17; TEMP 36.9; O2SAT 92
[2021-09-28] MEDS: docusate sodium 100 mg Capsule PO (08:02)
[2021-09-28] MEDS: nitrofurantoin SR (BID) 100 mg Capsule PO (08:02)
[2021-09-28] MEDS: escitalopram 10 mg Tablet PO (08:02)
[2021-09-28] MEDS: oxybutynin chloride XL 5 MG TABLET 10 MG PO (08:04)
--- NOTE | 2021-09-28 08:15 | PC.NURSE ---
Hemovac removed from back at this time. Patient tolerated well.
[2021-09-28 12:00] VITALS: BP 115/72; PULSE 79; RESP 18; TEMP 37.2; O2SAT 99
--- NOTE | 2021-09-28 15:42 | PM.DCS ---
Discharge Providers Date of Admission: 09/26/21 16:54 Date of Discharge: September 28, 2021 Attending Provider at Admission: Sadi Hernandez DO Attending Provider at Discharge: Sadi Hernandez DO Primary Care Provider: Elizabeth West MD Diagnoses at Discharge Discharge Diagnosis (1) Acute blood loss as cause of postoperative anemia: Status: Acute (2) Status post lumbar spinal fusion: Status: Acute Reason for Visit Reason for Visit: spinal stenosis, lumbar region Hospital Course Hospital Course low BP otherwise uneventful Physical Exam Urinary Catheter Management: Reyes: Cath Placed During This Visit: yes, but has since been removed by the nurse Reason for Continuing Indwelling Catheter: Decision to DC Catheter Urinary Catheter Date of Insertion: 09/26/21 Urinary Catheter Time of Insertion: 11:20 Date Urinary Catheter Removed: 09/27/21 Time Urinary Catheter Discontinued: 13:22 Discharge Data Studies Completed and Pending Completed Studies During Hospitalization Category Date Time Status XR lumbar spine 2-3V* 82727 Routine Exams 09/26/21 Completed Pending at discharge Category Date Time Status PRBC [Leukocyte Reduced RBC] Stat Lab 09/26/21 13:50 Results Type and Screen Stat Lab 09/26/21 13:50 Results Radiology Impressions Lumbar Spine X-Ray 09/26/21 00:00 Impression: Posterior lumbar sacral fusion. Laboratory Results WBC 8.0 10^3/uL (4.0-10.0) 09/28/21 02:50 RBC 2.74 10^6/uL (4.1-5.3) L 09/28/21 02:50 Hgb 8.8 g/dL (11.5-15.3) L 09/28/21 02:50 Hct 27.5 % (37.0-47.0) L 09/28/21 02:50 MCV 100.4 fl (81-99) H 09/28/21 02:50 MCH 32.1 pg (28.0-34.0) 09/28/21 02:50 MCHC 32.0 g/dL (30.0-36.0) 09/28/21 02:50 RDW 14.2 % (12.1-15.1) 09/28/21 02:50 Plt Count 147 10^3/cmm (130-400) 09/28/21 02:50 MPV 10.4 fL (7.4-10.4) 09/28/21 02:50 Neut % (Auto) 59.6 % 09/28/21 02:50 Lymph % (Auto) 29.0 % 09/28/21 02:50 Snyder % (Auto) 9.7 % 09/28/21 02:50 Eos % (Auto) 1.1 % 09/28/21 02:50 Baso % (Auto) 0.3 % 09/28/21 02:50 Neut # (Auto) 4.75 10^3/uL (1.8-7.7) 09/28/21 02:50 Lymph # (Auto) 2.3 10^3/uL (0.8-4.8) 09/28/21 02:50 Snyder # (Auto) 0.8 10^3/uL (0.2-0.9) 09/28/21 02:50 Eos # (Auto) 0.1 10^3/uL (0.0-0.8) 09/28/21 02:50 Baso # (Auto) 0.0 10^3/uL (0.0-0.1) 09/28/21 02:50 Nucleated RBC % (auto) 0 % 09/28/21 02:50 Nucleated RBCs # 0.0 /100WBC 09/28/21 02:50 Sodium 140 mmol/L (136-145) 09/21/21 09:40 Potassium 4.4 mmol/L (3.5-5.1) 09/21/21 09:40 Chloride 106 mmol/L (98-107) 09/21/21 09:40 Carbon Dioxide 24 mmol/L (22-29) 09/21/21 09:40 Anion Gap 14.4 (5-19) 09/21/21 09:40 BUN 11 mg/dL (8-23) 09/21/21 09:40 Creatinine 0.8 mg/dL (0.5-0.9) 09/21/21 09:40 GFR Calculation 71.5 mL/min (90-130) L 09/21/21 09:40 Glucose 85 mg/dL (65-115) 09/21/21 09:40 Calculated Osmolality 289 mOsm/kg (285-295) 09/21/21 09:40 Calcium 8.1 mg/dL (8.5-10.5) L 09/21/21 09:40 Blood Type O Positive 09/26/21 13:50 Rho(D) Type Positive 09/26/21 13:50 Antibody Screen Negative 09/26/21 13:50 Crossmatch See Detail 09/26/21 13:50 Vitals Last Vital Signs Temp 98.9 F 09/28/21 12:00 Pulse 79 09/28/21 12:00 Resp 18 09/28/21 12:00 BP 115/72 09/28/21 12:00 Pulse Ox 99 09/28/21 12:00 Discharge Plan Discharge Patient Disposition: Home Condition: Stable Prescriptions: New hydrocodone-acetaminophen 5-325 mg tablet 1 - 2 tab PO .Q4-6H Qty: 40 0RF Continued up4 Probiotics Adult 15 billion cell capsule 1 cap PO DAILY 0RF mecobalamin (vitamin B12) 1,000 mcg tablet,disintegrating 1,000 mcg SUBLINGUAL QDAY 0RF biotin 1 mg capsule 1 mg PO QDAY 0RF One-A-Day Women's 50 Plus 400-20 mcg tablet 1 tab PO QDAY 0RF bupropion HCl [Wellbutrin XL] 150 mg tablet extended release 24 hr 100 mg PO QAM 0RF oxybutynin chloride 10 mg tablet extended release 24hr 10 mg PO DAILY 0RF escitalopram oxalate [Lexapro] 10 mg tablet 10 mg PO DAILY 0RF Yuridia-C with Bioflavonoids 1,000-200 mg tablet 1 tab PO DAILY 0RF nitrofurantoin monohyd/m-cryst [Macrobid] 100 mg capsule See Rx Instructions .ROUTE .COMPLEX 0RF Dose Instruction: TAKE 1 CAPSULE BY MOUTH TWICE DAILY WITH FOOD OR A MEAL Rx Instructions: TAKE 1 CAPSULE BY MOUTH DAILY WITH FOOD OR A MEAL mineral oil Oil 5 ml PO DAILY 0RF (DME) Bone Growth Stimulator E0748 See Rx Instructions .Route .MEDSUPPLY Qty: 1 0RF Rx Instructions: As directed acetaminophen 325 mg capsule 325 mg PO Q4H PRN (Reason: fever or pain) Qty: 60 0RF cyclobenzaprine 10 mg tablet 10 mg PO PRN PRN (Reason: Muscle Pain) 0RF lithium carbonate 300 mg capsule 300 mg PO QPM 0RF Discharge Orders: Discharge Order (Routine); Ordered 09/28/21 Ordered By: Sadi Hernandez Other Ambulatory Orders: DME: [place] (Order) Location: None Selected Ordered By: Sadi Hernandez Referrals: [facility] [Outside] [facility] Home Care ([facility]) [Outside] Discharge Diet: Advance as tolerated Discharge Activity: Limit activity as instructed Patient Instructions: Hydrocodone/Acetaminophen (By mouth), Lumbar Spinal Fusion (GEN), Opioid Safety Activity Restrictions/Additional Instructions: Thank you for [facility] for your care! The following is a list of instructions, from your provider, to follow upon your discharge to ensure you have the optimal recovery from your recent injury orsurgery. Follow-up care is a anton part of your treatment and safety. Be sure to make and go to all appointments, and call your doctor if you are having problems. If you do not already have a follow-up appointment made, call Dr. Hernandez office in the next 1-3 days to make follow up appointment for 1 weeks at [phone]. It is also a good idea to know your test results and keep a list of the medicines you take. Medications will be prescribed for you at your provider's discretion. These medications are to be used as instructed; if they are taken more often that prescribed they will not be refilled early and in most cases will not be refilled at all. > When a refill is needed,you should contact richard hinson 2-3 business days before your prescription runs out. Medications will NOT be refilled by bridge/structure inspection team leader providers after hours! > Many pain medications contain Tylenol (Acetaminophen). Do not consume more than 4,000 mg of Tylenol per day in total with any combination ofmedications. > Pain medications can cause constipation. Please use an over the counter stool softener as directed, while taking pain medications. Consulty our local pharmacist with questions or recommendations on stool softeners. If constipation persists, contact our office or your primary care provider. > While under our care,you are not to receive pain medications or other controlled substances from any other provider unless our office is notified and approves. Any attempts to do so will result in refusal to prescribe any further pain medications and possible dismissal from our practice. ? Your wound and/or dressing should remain clean and dry for 2 days after surgery. KEEP DRESSING ON UNTIL SEEN IN THE CLINIC IN 1 WEEK ? Walking is essential for the healing process after surgery. We would like you to slowly advance your walking. This should be done on relatively flat clear ground (inside or out) or can be done on a treadmill. Remember this goal does not have to happen all at once, slowly increase your distance and duration. This can be broken into more more than one walk per day as tolerated. Patients who walk as directed after surgery rarely require Physical Therapy. In the unlikely event this issue arises your provider will direct hospital staff to make the appropriate arrangements. ? No lifting over 5 pounds {a gallon of milk) or bending/twisting until further notice. Each of these activities places an unnecessary amount of stress onto the body and can impede the delicate healing process. > Instead of bending at the waist, keep your back straight and bend at the knees. > Instead of twisting your torso, keep your back straight and turn your entire body with your feet. ? You may sleep in any position which makes you comfortable. Many patients find comfort sleeping in a reclining chair. It is not abnormal to have difficulty sleeping for the first several weeks following your surgery. We recommend trying Benadry! or Tylenol PM as directed to help with your sleeping difficulties. Both medications are over the counter and available withoutprescription. ? NO SMOKING!!! Smoking dramatically increases the probability of developing postoperative wound infections. ? Common complaints after lumbar and/or thoracic spine surgery include, but are not limited to: numbness and/or tingling in the legs, pain around the incision and surrounding tissues, muscle spasms, or stiffness of the middle to low back. Contact our office if these symptoms persist or if an acute change occurs. ? No driving for the first 3-5days, and not while taking narcotics [] until seen at your follow-up appointment and cleared. There are no restrictions for riding on short trips, however if you take a longer trip, arrangements should be made to make regular stops to get out of the vehicle and stretch . ? Swelling is an unfortunate event that will take place with any surgery and is the primary source of your postoperative discomfort. While walking and regular approved activities helps control inflammation, there are additional steps you can take to minimizeswelling. > Place ice over the surgical site and surrounding tissue for twenty minutes, followed by applying a low/medium heat (heating pad) for an additional twenty minutes every 1-2 hours as needed for painrelief. > You may use of over the counter anti-inflammatory medications (Ibuprofen, Motrin, Aleve, Advil, etc) as directed on the package label. These types of medicines wm significantly reduce the amount of discomfort you experience after surgery from swelling. It should be noted that if you have and allergy to any of these medications, or a history of ulcers or kidney disease you should consult you primary care provider prior to starting these medications. Discharge Attestations Time Spent in Discharge Care*: less than 30 min Quality Metrics Clinical Quality Measures [ No reported AMI, CVA or VTE this stay] Coding Level of Care Code Acute Chg FW DC note Diagnoses Acute blood loss as cause of postoperative anemia D62 Status post lumbar spinal fusion Z98.1
[2021-09-28 16:56] VITALS: BP 115/72; PULSE 79; RESP 18; TEMP 37.2; O2SAT 99
== END 2021-09-28 16:57 | disposition home health service (06) | DRG 454 ==
LOC: MEDSURG 16:55
PROVIDERS: Anesthesiology; Physician Assistant; Admitting Provider Orthopaedic Surgery; PCP Family Medicine; Visit Provider Orthopaedic Surgery
PROC: 0SG00AJ Fusion of Lumbar Vertebral Joint with Interbody Fusion Device, Posterior Approach, Anterior Column, Open Approach (ICD-10-PCS; principal; 2021-09-26 11:30)
DX: M51.36 Other intervertebral disc degeneration, lumbar region (principal); D62 Acute posthemorrhagic anemia; M48.062 Spinal stenosis, lumbar region with neurogenic claudication; Z85.41 Personal history of malignant neoplasm of cervix uteri; K21.9 Gastro-esophageal reflux disease without esophagitis; Z87.891 Personal history of nicotine dependence; Z98.1 Arthrodesis status
CPT/HCPCS: 36415; 36430; 51702; 72100; 76000; 80048; 85014; 85018; 85025; 86850; 86900; 86920; 93005; 97116; 97161; 97530; C1713; C9359; J0690; J1100; J1170; J1644; J1885; J2250; J2270; J2370; J2405; J2704; J3010; J3370; J3490; J7030; P9016; P9041; P9047

== ENCOUNTER → 2021-10-04 10:45 | Outpatient (BNVA) | payer MEDICARE, BC, SELFPAY | PROVIDERS: PCP Family Medicine; Visit Provider Physician Assistant | DX: Z47.89 Encounter for other orthopedic aftercare (principal); Z98.890 Other specified postprocedural states; Z98.1 Arthrodesis status | CPT/HCPCS: 99024; 99999 ==

== ENCOUNTER → 2021-10-09 11:41 | Outpatient (BNVA) | payer MEDICARE, BC, SELFPAY | PROVIDERS: PCP Family Medicine; Visit Provider Physician Assistant | DX: Z98.1 Arthrodesis status (principal); Z47.89 Encounter for other orthopedic aftercare; Z98.890 Other specified postprocedural states | CPT/HCPCS: 72100; 99024; 99999 ==

== ENCOUNTER → 2021-11-06 10:44 | Outpatient (BNVA) | payer MEDICARE, BC, SELFPAY | PROVIDERS: PCP Family Medicine; Visit Provider Physician Assistant | DX: Z47.89 Encounter for other orthopedic aftercare (principal); M70.61 Trochanteric bursitis, right hip; M70.62 Trochanteric bursitis, left hip; Z98.1 Arthrodesis status | CPT/HCPCS: 72100; 99024 ==

== ENCOUNTER → 2021-11-19 13:02 | Outpatient (BNVA) | payer MEDICARE, BC, SELFPAY | PROVIDERS: PCP Family Medicine; Visit Provider Podiatrist Foot & Ankle Surgery | DX: M79.672 Pain in left foot (principal); G57.60 Lesion of plantar nerve, unspecified lower limb | CPT/HCPCS: 64455; J1100; J3301; J3490 ==

== ENCOUNTER → 2022-01-10 11:02 | Outpatient (BNVA) | payer MEDICARE, BC, SELFPAY | PROVIDERS: PCP Family Medicine; Visit Provider Physician Assistant | DX: Z98.1 Arthrodesis status (principal); Z47.89 Encounter for other orthopedic aftercare | CPT/HCPCS: 72100; 99024 ==

== ENCOUNTER → 2022-01-15 14:04 | Outpatient (BNVA) | payer MEDICARE, BC, SELFPAY | PROVIDERS: PCP Family Medicine; Visit Provider Podiatrist Foot & Ankle Surgery | DX: G57.62 Lesion of plantar nerve, left lower limb (principal) | CPT/HCPCS: 64455; J1100; J3301; J3490 ==

== ENCOUNTER 2022-03-05 10:11 | Emergency (ER) | payer MEDICARE, BC, SELFPAY ==
[2022-03-05 10:27] VITALS: BMI 24.0
[2022-03-05 10:29] VITALS: BP 117/72; PULSE 68; RESP 18; TEMP 36.4; O2SAT 99
--- NOTE | 2022-03-05 10:38 | XRR_ITS ---
PROCEDURE INFORMATION: Exam: XR Left Ankle Exam date and time: 03/05/2022 11:06 AM Age: 66 years old Clinical indication: Injury or trauma; Fall; Sprain or strain; Injury details: Left ankle injury. Injury occurred last night. Patient says she was in her barn and was stepping down a step and partially fell twisting her left foot. ; Additional info: Fall injury-rolled ankle TECHNIQUE: Imaging protocol: Radiologic exam of the Left ankle. Views: 3 or more views. COMPARISON: CR XR foot LT min 3V* [id number] 02/19/2021 3:07 PM FINDINGS: Bones/joints: Normal. Soft tissues: There is soft tissue swelling especially over the lateral malleolus. XR/XR ankle LT min 3V* [id number] IMPRESSION: Soft tissue swelling. No fracture.
--- NOTE | 2022-03-05 10:48 | ED_ITS ---
HPI - Extremity Problem General: Chief complaint: Extremity Injury, Lower Stated complaint: Left foot pain Time Seen by Provider: 03/05/22 10:37 History of Present Illness: Patient is a 66-year-old female who comes to the ED with left ankle injury. Injury occurred last night. Patient says she was in her barn and was stepping down a step and partially fell twisting her left foot. She did not completely fall to the ground was able to catch her self on the rail. Denies any head trauma or loss of consciousness. She has pain and swelling in her left ankle. Any movement or weightbearing causes worsening pain. She says last night her pain was 10 out of 10. She has been elevating it and keeping it Gatito wrap to help with the swelling. Associated symptoms: Deny chest pain, fever(s) or rash Review of Systems Const: Denies: fever(s), chills or fatigue Eyes: Denies: change in vision or eye discomfort ENMT: Denies: throat pain, odynophagia, nasal discharge or nasal congestion Card: Denies: chest pain, palpitations, edema, swelling of feet/ankles, dyspnea on exertion or orthopnea Resp: Denies: dyspnea, productive cough or non-productive cough GI: Denies: abdominal pain, nausea, vomiting, diarrhea, constipation or hematochezia : Denies: flank pain, dysuria or hematuria Musc: Reports: extremity pain (Left ankle), extremity swelling (Left ankle) and limited range of motion (Left ankle); Denies: neck pain or back pain Skin/Breast: Denies: rash or new lesions Neuro: Denies: headache(s), numbness in extremities or weakness in extremities [facility] ED PFSH: Medical History Adenocarcinoma of cervix Aftercare following surgery of the genitourinary system Aftercare following surgery of the genitourinary system [place]-Walker grade 3 rectocele Chronic cystitis Gastro-esophageal reflux disease without esophagitis Pelvic floor relaxation Urgency incontinence Surgical History H/O colonoscopy H/O rectocele repair 04/11/2021- posterior colporrhaphy and sacrospinous fixation performed by Dr. Tamez at [facility] H/O vaginal surgery 07/05/2020-anterior colporrhaphy augmented with allograft and single incision mid urethral sling, performed by Dr. Tamez at [facility] H/O vaginal surgery Anterior colporrhaphy augmented with allograft. Single incision mid urethral sling preformed on 07/05/[address] Tamez at [facility] History of facelift Hx of foot surgery bilateral Hx of hand surgery rt S/P hysterectomy Status post abdominoplasty Family History Father , at age 54 CAD (coronary artery disease) Hypertension Stroke Mother , at age 87 Dementia Thyroid condition Brother Hyperlipidemia Heart disease Denies family history of Colon cancer Ovarian cancer Diabetes Breast cancer Anesthesia complication Bleeding disorder Uterine cancer Social History Smoking and tobacco status: never smoked Quit status (tobacco): has quit using tobacco Year quit tobacco: 2006 Alcohol intake: current Alcohol intake frequency: 0-2 Drinks per Day Physical Exam Const: COMMON NORMALS: patient oriented x3, healthy appearing and alert GENERAL APPEARANCE: cooperative HENMT: COMMON NORMALS: normocephalic HEAD & SCALP: normocephalic MOUTH: Normal oral and palatal mucosa present THROAT: posterior oropharynx normal and uvula midline Neck/C-Spine: COMMON NORMALS: supple GENERAL: Yes normal visual inspection Resp: COMMON NORMALS: normal respiratory effort, No retractions, No use of accessory muscles and clear to auscultation bilaterally AUSCULTATION: clear to auscultation bilaterally Cardio: COMMON NORMALS: regular rate, regular rhythm, S1 normal heart sound p resent, S2 normal heart sound present, No gallops present (Cardio), No clicks present (Cardio), No murmurs present (Cardio) and Peripheral pulses 2+ throughout RATE: regular rate RHYTHM: regular rhythm HEART SOUNDS: S1 normal heart sound present and S2 normal heart sound present PERIPHERAL PULSES: Peripheral pulses 2+ throughout GI: COMMON NORMALS: Normal to inspection, nondistended, normoactive bowel sounds present, Soft to palpation, non-tender and no masses PALPATION: Yes Soft to palpation : COMMON NORMALS: Yes no CVA tenderness BLADDER/KIDNEY EXAM: Yes no CVA tenderness Back/Pelvis: COMMON NORMALS: no CVA tenderness Extremity: NARRATIVE EXTREMITY EXAM: Left ankle?no visible deformity noted. Ecchymosis and swelling seen. Tenderness to lateral malleolus of ankle. Limited range of motion due to pain. Neurovascular intact distally. GENERAL: Yes normal exam except as noted Neuro: COMMON NORMALS: patient oriented x3 SENSORIUM/ORIENTATION: Yes alert GAIT: Yes Normal gait present Skin: GENERAL SKIN EXAM: dry skin Course Vital Signs: Vital signs: Vital Signs Temperature 97.6 F 03/05/22 10:29 Pulse Rate 68 03/05/22 10:29 Respiratory Rate 18 03/05/22 10:29 Blood Pressure 117/72 03/05/22 10:29 Pulse Oximetry 99 03/05/22 10:29 Oxygen Delivery Me thod 03/05/22 10:29 MDM - Extremity (Nontraumatic) Medical Decision Making Patient is a 66-year-old female who comes to the ED with left ankle injury. Injury occurred last night. Patient says she was in her barn and was stepping down a step and partially fell twisting her left foot. She did not completely fall to the ground was able to catch her self on the rail. Denies any head trauma or loss of consciousness. Vitals are stable. Left ankle has significant swelling and ecchymosis and limited range of motion due to pain. Tenderness over lateral malleolus. Ankle x-ray shows soft tissue swelling but no acute fracture. Patient was put in a Ortho boot due to the severity and clinical appearance of ankle sprain and referring her to Ortho for follow-up. I placed an order with case management for patient be referred to Ortho. She was discharged home in an Ortho boot and sent home with a prescription for ibuprofen 800 mg to help with pain. Return to ED precautions given. Patient understood and agreed with plan. Lab Data Radiology Impressions Ankle X-Ray 03/05/22 10:38 IMPRESSION: Soft tissue swelling. No fracture. Discharge Plan Discharge Patient Disposition: Home Clinical Impression: Left ankle sprain Qualifiers: Encounter type: initial encounter Involved ligament of ankle: anterior talofibular ligament Qualified Code(s): S93.492A - Sprain of other ligament of left ankle, initial encounter Condition: Stable Prescriptions: New ibuprofen 800 mg tablet 800 mg PO Q8H PRN (Reason: pain) Qty: 30 0RF No Action up4 Probiotics Adult 15 billion cell capsule 1 cap PO DAILY mecobalamin (vitamin B12) 1,000 mcg tablet,disintegrating 1,000 mcg SUBLINGUAL QDAY biotin 1 mg capsule 1 mg PO QDAY One-A-Day Women's 50 Plus 400-20 mcg tablet 1 tab PO QDAY bupropion HCl [Wellbutrin XL] 150 mg tablet extended release 24 hr 100 mg PO QAM oxybutynin chloride 10 mg tablet extended release 24hr 10 mg PO DAILY escitalopram oxalate [Lexapro] 10 mg tablet 10 mg PO DAILY Yuridia-C with Bioflavonoids 1,000-200 mg tablet 1 tab PO DAILY nitrofurantoin monohyd/m-cryst [Macrobid] 100 mg capsule See Rx Instructions .ROUTE .COMPLEX Dose Instruction: TAKE 1 CAPSULE BY MOUTH TWICE DAILY WITH FOOD OR A MEAL Rx Instructions: TAKE 1 CAPSULE BY MOUTH DAILY WITH FOOD OR A MEAL mineral oil Oil 5 ml PO DAILY hydrocodone-acetaminophen 5-325 mg tablet 1 - 2 tab PO .Q4-6H 5 Days Qty: 40 0RF (DME) Custom Molded Orthotics See Rx Instructions .Route .MEDSUPPLY Qty: 1 0RF Rx Instructions: As directed gabapentin [Neurontin] 300 mg capsule 300 mg PO BID Qty: 60 0RF (DME) Bone Growth Stimulator E0748 See Rx Instructions .Route .MEDSUPPLY Qty: 1 0RF Rx Instructions: As directed acetaminophen 325 mg capsule 325 mg PO Q4H PRN (Reason: fever or pain) Qty: 60 0RF cyclobenzaprine 10 mg tablet 10 mg PO PRN PRN (Reason: Muscle Pain) lithium carbonate 300 mg capsule 300 mg PO QPM Discharge Orders: Discharge ED (Routine); Ordered 03/05/22 Ordered By: Tray Brennan Referrals: Elizabeth West MD [Primary Care Provider] - Discharge Diet: Regular Discharge Activity: Increase activity as tolerated Patient Instructions: Ankle Sprain (DC) Activity Restrictions/Additional Instructions: Follow-up with medical provider as directed. Case management should be contacted in the next several days set up an appointment with Ortho for follow- up on ankle sprain. Wear Ortho boot. Take medications as prescribed. Return to the ER or your medical provider if condition worsens. Please read and understand discharge instructions. Thank you for choosing [facility] for your healthcare needs today. Please realize this is an emergency room and that we are providing you with a medical screening exam and this may not be complete and all inclusive of all the testing and or work up that you may need to determine your ailment or severity of your illness. It is very important that you follow up as instructed or that you return to the Emergency Department should you have concerns or if your condition changes or worsens in any way. Coding Level of Care Code ED Building Construction Supervisor for Noemi Fwlor Exam Comprehensive
[2022-03-05] MEDS: ibuprofen 800 mg tablet PO (11:43)
--- NOTE | 2022-03-05 12:59 | PC.SOCIAL ---
Addendum entered by Tari Browning 03/08/22 12:58: Patient had a follow up appointment scheduled with ortho - patient did attend appointment. Original Note: Ortho Referral Consult received that patient needs ortho referral for left ankle sprain. Referral sent to [facility] at this time. Clinic will call patient with appointment date/time.
== END 2022-03-05 12:39 | disposition home or self-care (01) ==
PROVIDERS: Emergency Provider Physician Assistant; PCP Family Medicine
DX: S93.492A Sprain of other ligament of left ankle, initial encounter (principal); Z87.891 Personal history of nicotine dependence; Y92.71 Barn as the place of occurrence of the external cause
CPT/HCPCS: 73610; 97760; 99283; L4361

== ENCOUNTER → 2022-03-07 09:53 | Outpatient (BNVA) | payer MEDICARE, BC, SELFPAY | PROVIDERS: PCP Family Medicine; Visit Provider Podiatrist Foot & Ankle Surgery | DX: S93.492A Sprain of other ligament of left ankle, initial encounter (principal); X50.9XXA Other and unspecified overexertion or strenuous movements or postures, initial encounter; G57.60 Lesion of plantar nerve, unspecified lower limb | CPT/HCPCS: 73610 ==

== ENCOUNTER 2022-03-07 14:19 | Outpatient (CLI) | payer MEDICARE, BC, SELFPAY | END 2022-03-07 14:20 | disposition home or self-care (01) | LOC: SPT 14:20 | PROVIDERS: PCP Family Medicine; Visit Provider Podiatrist Foot & Ankle Surgery | DX: Z46.89 Encounter for fitting and adjustment of other specified devices (principal); S92.402D Displaced unspecified fracture of left great toe, subsequent encounter for fracture with routine healing; X58.XXXD Exposure to other specified factors, subsequent encounter | CPT/HCPCS: 97760; 99214; L1902 ==

== ENCOUNTER → 2022-03-28 11:05 | Outpatient (BNVA) | payer MEDICARE, BC, SELFPAY | PROVIDERS: PCP Family Medicine; Visit Provider Podiatrist Foot & Ankle Surgery | DX: S99.912A Unspecified injury of left ankle, initial encounter; W10.1XXA Fall (on)(from) sidewalk curb, initial encounter; G57.60 Lesion of plantar nerve, unspecified lower limb | CPT/HCPCS: 99213 ==

== ENCOUNTER 2022-05-08 18:36 | Emergency (ER) | payer MEDICARE, BC, SELFPAY ==
[2022-05-08] VITALS (7 sets, daily range): BP systolic 112–119; BP diastolic 67–88; PULSE 114; RESP 16–17; TEMP 36.8; O2SAT 90–97; BMI 24.0
--- NOTE | 2022-05-08 21:41 | W.ED.NECK ---
HPI - Neck Pain/Injury General: Chief Complaint: Neck Pain/Injury Stated Complaint: neck back pain Time Seen by Provider: 05/08/22 21:41 History of Present Illness: 66-year-old female patient comes in today for complaints of neck pain that awakened her 2 nights ago from sleep. Patient has used medications at home with minimal relief of pain. Patient was more concerned due to the pain radiating to her right breast from her neck. Respirations were even. Patient moves extremities well. Patient appears nontoxic. Patient appears in moderate pain. Associated symptoms: Denies nausea Review of Systems Const: Denies: fever(s) Resp: Denies: dyspnea GI: Denies: nausea or vomiting Musc: Reports: neck pain Skin/Breast: Denies: rash PFSH ED PFSH: Medical History Adenocarcinoma of cervix Aftercare following surgery of the genitourinary system Aftercare following surgery of the genitourinary system Mohler-Walker grade 3 rectocele Chronic cystitis Gastro-esophageal reflux disease without esophagitis Pelvic floor relaxation Urgency incontinence Surgical History H/O colonoscopy H/O rectocele repair 04/11/2021- posterior colporrhaphy and sacrospinous fixation performed by Dr. Tamez at [facility] H/O vaginal surgery 07/05/2020-anterior colporrhaphy augmented with allograft and single incision mid urethral sling, performed by Dr. Tamez at [facility] H/O vaginal surgery Anterior colporrhaphy augmented with allograft. Single incision mid urethral sling preformed on 07/05/[address] Tamez at [facility] History of facelift Hx of foot surgery bilateral Hx of hand surgery rt S/P hysterectomy Status post abdominoplasty Family History Father , at age 54 CAD (coronary artery disease) Hypertension Stroke Mother , at age 87 Dementia Thyroid condition Brother Hyperlipidemia Heart disease Denies family history of Colon cancer Ovarian cancer Diabetes Breast cancer Anesthesia complication Bleeding disorder Uterine cancer Social History Smoking and tobacco status: never smoked Quit status (tobacco): has quit using tobacco Year quit tobacco: 2006 Alcohol intake: current Alcohol intake frequency: 0-2 Drinks per Day Physical Exam Const: COMMON NORMALS: alert HENMT: COMMON NORMALS: normocephalic HEAD & SCALP: normocephalic THROAT: posterior oropharynx normal Neck/C-Spine: CERVICAL SPINE: Yes cervical ROM abnormal (Decreased range of motion) and Yes Paracervical muscle tenderness Resp: COMMON NORMALS: normal respiratory effort and clear to auscultation bilaterally AUSCULTATION: clear to auscultation bilaterally Cardio: COMMON NORMALS: regular rate and regular rhythm RATE: regular rate RHYTHM: regular rhythm GI: COMMON NORMALS: Soft to palpation PALPATION: Yes Soft to palpation Back/Pelvis: THORACIC SPINE/UPPER BACK: Yes thoracic spinal tenderness (Upper back lower cervical area) T-spine tenderness location: T1 LUMBAR SPINE/LOWER BACK: Yes normal to inspection Extremity: COMMON NORMALS: full ROM Neuro: SENSORIUM/ORIENTATION: Yes alert Skin: COMMON NORMALS: no rashes or lesions noted GENERAL SKIN EXAM: no rashes or lesions noted Course Vital Signs: Vital signs: Vital Signs Temperature 98.3 F 05/08/22 19:05 Pulse Rate 114 H 05/08/22 19:05 Respiratory Rate 17 05/08/22 22:10 Blood Pressure 119/88 05/08/22 21:55 Pulse Oximetry 95 05/08/22 21:50 Oxygen Delivery Me thod 05/08/22 19:05 MDM - Neck Pain/Injury Medical Decision Making 66-year-old female comes in today with exacerbation of neck pain that started 2 days ago. Patient reports difficulty of moving the right shoulder and some anterior chest discomfort on the right side. Tenderness is noted on palpation of the right anterior chest wall. Normal range of motion of the shoulder is noted. Patient has tenderness to the neck and trapezius on the right side. Differential diagnosis includes facet arthropathy, degenerative disc disease, cervical radiculopathy, spinal cord stenosis. CT of the neck noted some mild spinal stenosis of the neck but no acute abnormalities were noted. Reviewed exam with patient with recommendations for treatment and follow-up. Patient reported understanding. Patient was given 4 mg of morphine and 15 mg of Toradol for her pain with good results. Patient has an appointment with Dr. Hernandez tomorrow for further evaluation and treatment. Lab Data Radiology Impressions Cervical Spine CT 05/08/22 21:45 IMPRESSION: Degenerative changes as described above. No acute abnormality. Discharge Plan Discharge Patient Disposition: Home Clinical Impression: Disc disorder of cervical region Condition: Stable Prescriptions: Continued ibuprofen 800 mg tablet 800 mg PO Q8H PRN (Reason: pain) Qty: 30 0RF No Action up4 Probiotics Adult 15 billion cell capsule 1 cap PO DAILY mecobalamin (vitamin B12) 1,000 mcg tablet,disintegrating 1,000 mcg SUBLINGUAL QDAY biotin 1 mg capsule 1 mg PO QDAY One-A-Day Women's 50 Plus 400-20 mcg tablet 1 tab PO QDAY bupropion HCl [Wellbutrin XL] 150 mg tablet extended release 24 hr 100 mg PO QAM oxybutynin chloride 10 mg tablet extended release 24hr 10 mg PO DAILY escitalopram oxalate [Lexapro] 10 mg tablet 10 mg PO DAILY Yuridia-C with Bioflavonoids 1,000-200 mg tablet 1 tab PO DAILY mineral oil Oil 5 ml PO DAILY hydrocodone-acetaminophen 5-325 mg tablet 1 - 2 tab PO .Q4-6H 5 Days Qty: 40 0RF (DME) Custom Molded Orthotics See Rx Instructions .Route .MEDSUPPLY Qty: 1 0RF Rx Instructions: As directed (DME) ASO to the Left See Rx Instructions .Route .MEDSUPPLY Qty: 1 0RF Rx Instructions: As directed gabapentin [Neurontin] 300 mg capsule 300 mg PO BID Qty: 60 0RF (DME) Bone Growth Stimulator [id number] See Rx Instructions .Route .MEDSUPPLY Qty: 1 0RF Rx Instructions: As directed nitrofurantoin monohyd/m-cryst 100 mg capsule See Rx Instructions .ROUTE .COMPLEX Qty: 60 0RF Dose Instruction: TAKE 1 CAPSULE BY MOUTH TWICE DAILY WITH FOOD OR A MEAL Rx Instructions: TAKE 1 CAPSULE BY MOUTH TWICE DAILY WITH FOOD OR A MEAL acetaminophen 325 mg capsule 325 mg PO Q4H PRN (Reason: fever or pain) Qty: 60 0RF cyclobenzaprine 10 mg tablet 10 mg PO PRN PRN (Reason: Muscle Pain) lithium carbonate 300 mg capsule 300 mg PO QPM Discharge Orders: Discharge ED (Routine); Ordered 05/08/22 Ordered By: Clemente Holm Referrals: Elizabeth West MD [Primary Care Provider] - Discharge Diet: Usual diet Discharge Activity: Increase activity as tolerated Patient Instructions: Opioid Safety, Pain Management Activity Restrictions/Additional Instructions: Follow-up with primary care for further instruction. Return to ER for fever greater than 100.4, increased difficulty breathing, or new concerns. Coding Level of Care Code ED Processor Helper for [place] Fwd Exam Comprehensive
--- NOTE | 2022-05-08 21:45 | CTR_ITS ---
PROCEDURE INFORMATION: Exam: CT Cervical Spine Without Contrast Exam date and time: 05/08/2022 9:56 PM Age: 66 years old Clinical indication: Patient HX: Worsening neck pain x 3 days. No injury. ; Additional info: Neck pain, cervical radiculopathy TECHNIQUE: Imaging protocol: Computed tomography of the cervical spine without contrast. Radiation optimization: All CT scans at this facility use at least one of these dose optimization techniques: automated exposure control; mA and/or kV adjustment per patient size (includes targeted exams where dose is matched to clinical indication); or iterative reconstruction. COMPARISON: CT head wo con* [id number] 12/25/2020 11:35 AM RADIATION DOSE METRICS: Total DLP (mGy-cm): 135.67 FINDINGS: Bones/joints: There are moderate degenerative changes present. Normal alignment. No acute fractures. C2-C3: There is a central disc protrusion which contacts the ventral cord and causes mild spinal canal narrowing. No significant neural foraminal narrowing. C3-C4: There is a central disc protrusion which contacts the ventral cord and causes mild spinal canal narrowing. No significant neural foraminal narrowing. C4-C5: There is a central disc protrusion which contacts the ventral cord and causes mild spinal canal narrowing. No significant neural foraminal narrowing. C5-C6: There is a central disc protrusion which contacts the ventral cord and causes mild spinal canal narrowing. No significant neural foraminal narrowing. C6-C7: No significant disc protrusion. No severe spinal canal stenosis. No significant neural foraminal narrowing. C7-T1: No significant disc protrusion. No severe spinal canal stenosis. No significant neural foraminal narrowing. Lungs: Lung apices are normal. Soft tissues: Unremarkable. CT/CT cervical spin wo con* [id number] IMPRESSION: Degenerative changes as described above. No acute abnormality.
[2022-05-08] MEDS: ketorolac 30 mg/mL INJ 15 MG IM (22:08)
[2022-05-08] MEDS: morphine 4 mg/mL SDV 1 mL IM (22:10)
== END 2022-05-08 23:01 | disposition home or self-care (01) ==
PROVIDERS: Emergency Provider Nurse Practitioner Family; PCP Family Medicine
DX: M50.90 Cervical disc disorder, unspecified, unspecified cervical region (principal); Z85.41 Personal history of malignant neoplasm of cervix uteri
CPT/HCPCS: 72125; 96372; 99284; J1885; J2270

== ENCOUNTER → 2022-05-09 14:20 | Outpatient (BNVA) | payer MEDICARE, BC, SELFPAY | PROVIDERS: PCP Family Medicine; Visit Provider Physician Assistant | DX: M47.22 Other spondylosis with radiculopathy, cervical region (principal) | CPT/HCPCS: 72050; 99203 ==

== ENCOUNTER 2022-06-05 09:06 | Outpatient (CLI) | payer MEDICARE, BC, SELFPAY ==
--- NOTE | 2022-06-05 09:30 | MR_ITS ---
WS: [id number] MRI CERVICAL SPINE NONCONTRAST TECHNIQUE: Sagittal T1, T2 and STIR imaging. Axial T2, gradient, and fiesta imaging. CLINICAL INFORMATION: pain COMPARISON: CT May 08, 2022 FINDINGS: Straightening of the normal cervical lordosis. Mild cervical curve. Slight anterolisthesis C2 on C3. Mild disc bulging worse at C4-C5 and C5-C6. C2-C3: Slight anterolisthesis. Mild disc bulging. Mild facet arthropathy. Spinal canal and foramen ar e patent. C3-C4: Mild disc osteophyte protrusion with slight effacement of ventral thecal sac. Moderate facet a rthropathy. Mild LEFT and no significant RIGHT foraminal narrowing. Spinal canal is patent. C4-C5: Slight anterolisthesis C4 on C5. Advanced LEFT facet arthropathy. Mild LEFT and no significant RIGHT foraminal narrowing. Spinal canal is patent. C5-C6: Tiny shallow central protrusion. Slight effacement of ventral thecal sac. Moderate facet arthr opathy. Mild LEFT and no significant RIGHT foraminal narrowing. Spinal canal is patent. C6-C7: No significant disc bulging. Spinal canal and foramen are patent. C7-T1: Incidental LEFT perineural sleeve cyst. No significant disc bulging. Spinal canal and foramen are patent. Visualized brain stem structures: Normal. Prevertebral soft tissues: Normal. MR/MR cervical spin wo con* [id number] IMPRESSION: 1. Slight anterolisthesis C2 on C3 and C4 on C5. 2. Shallow central protrusion C3-C4 with slight effacement of the ventral thec al sac. 3. Shallow central protrusions C4-C5 and C5-C6 with slight effacement of ventr al thecal sac. Spinal canal remains patent. 4. Mild bony foraminal narrowing LEFT C3-C4, LEFT C4-C5 and LEFT C5-C6. 5. Advanced facet arthropathy LEFT C4-C5.
== END 2022-06-05 09:07 | disposition home or self-care (01) ==
LOC: RAD 09:11
PROVIDERS: PCP Family Medicine; Visit Provider Physician Assistant
DX: M50.21 Other cervical disc displacement, high cervical region (principal); M47.812 Spondylosis without myelopathy or radiculopathy, cervical region
CPT/HCPCS: 72141

== ENCOUNTER → 2022-07-22 12:24 | Outpatient (BNVA) | payer MEDICARE, BC, SELFPAY | PROVIDERS: PCP Family Medicine; Visit Provider Registered Nurse Neonatal Intensive Care | DX: J02.9 Acute pharyngitis, unspecified (principal) | CPT/HCPCS: 87071; 87880 ==

== ENCOUNTER → 2022-09-27 08:29 | Day surgery (SDC) | payer MEDICARE, BC, SELFPAY ==
[2022-09-26 09:54] VITALS: BMI 24.0
[2022-09-27 08:47] VITALS: BP 114/81; PULSE 76; RESP 18; TEMP 36.6; O2SAT 96
--- NOTE | 2022-09-27 08:58 | XR_ITS ---
WS: [id number] Exam: XR foot LT min 3V* [id number] Date/Time of Exam: 09/27/2022 9:05 AM Reason For Exam: pre op eval Comparison 02/19/2021. There is almost complete dislocation of the second the MP joint. No obvious fracture. Soft tissues ar e unremarkable. Plantar heel spur. XR/XR foot LT min 3V* [id number] IMPRESSION: 1. Almost complete dislocation of the second MP joint. No fracture or other sig nificant finding.
[2022-09-27] MEDS: sodium chloride 0.9% 1,000 ML 30 ML IV (08:59)
--- NOTE | 2022-09-27 09:04 | W.PM.OPSUD ---
Surgery/Procedure H&P Update DATE OF PROCEDURE: September 27, 2022 DATE H&P PERFORMED: 09/27/22 CHANGES TO PREVIOUS DOCUMENTATION: none PREOP DIAGNOSIS: Second and third hammertoe and second intermetatarsal neuroma left foot. PLANNED PROCEDURE: Operation Date: 09/27/22 11:20 Proposed Procedures p ?Stefany Osteotomy left second and third metatarsals 07752 x2.? 41562 x2.? 43958 x2.? 04757,?G57.62, M20.4, S96.21, M24.27 , Q68.8,M21.6X(Left) - FELIZ Lawson Flexor tendon repair left second and third metatarsal phalangeal joints(Left) - FELIZ Lawson Left second and third hammertoe correction(Left) - FELIZ Lawson Nerve decompression left second intermetatarsal space(Left) - Marko Suarez DPM
--- NOTE | 2022-09-27 09:05 | P.HP_ITS ---
Providers/Chief Complaint Primary Care Provider: Elizabeth West MD Chief Complaint: G57.62, M20.4, S96.21, M24.27, Q68.8, M21.6X History of Present Illness Sarahi Anton is a 67 year old female here for for evaluation of left second and third toe pain. Patient states that they are curling down to the point where they are creating tremendous pain to the area. Patient would like to discuss surgical intervention to correct the toes. Review of Systems General: Reports: 10 or more systems reviewed and unremarkable except in HPI and below Const: Denies: fever(s) or chills Eyes: Denies: change in vision Card: Denies: chest pain or palpitations Resp: Denies: dyspnea or productive cough GI: Denies: abdominal pain, nausea or vomiting : Denies: flank pain Musc: Reports: extremity pain, joint pain, joint stiffness, limited range of motion and deformity Skin/Breast: Reports: skin tenderness; Denies: rash Neuro: Reports: difficulty walking; Denies: numbness in extremities, sensory changes or frequent falls Psych: Denies: suicidal ideation Pérez/Lymph: Denies: easy bruising Medications/Allergies Home Medications Medication Instructions Recorded Confirmed Last Taken Type vhygkaawvinf-agtxwwda-ytylsjb-folic 1 tab PO QDAY 06/25/19 09/26/22 1 Day Ago History acid 400 mcg-vit K1 20 mcg tablet ~09/25/22 (One-A-Day Women's 50 Plus) Lactobacillus 1 cap PO DAILY 11/05/19 09/26/22 1 Day Ago History acidophil,plantar-Bifido no.7 15 ~09/25/22 billion cell capsule (up4 Probiotics Adult) oxybutynin chloride 10 mg 10 mg PO DAILY 05/23/20 09/26/22 1 Day Ago History tablet,extended release 24 hr ~09/25/22 bupropion HCl 150 mg 24 hr tablet, 200 mg PO QAM 06/12/20 09/26/22 09/27/22 06:30 History extended release (Wellbutrin XL) escitalopram oxalate 10 mg tablet 10 mg PO DAILY 06/12/20 09/26/22 09/27/22 06:30 History (Lexapro) mineral oil 5 ml PO DAILY 05/21/21 09/26/22 Unknown History lithium carbonate 300 mg capsule 300 mg PO QPM 09/21/21 09/26/22 1 Day Ago History ~09/25/22 Custom Molded Orthotics #1 ea 11/19/21 08/14/22 Unknown Rx ASO to the Left #1 ea 03/07/22 08/14/22 Unknown Rx ibuprofen 800 mg tablet 800 mg PO Q8H PRN pain #30 tabs 05/08/22 09/26/22 Unknown Rx nitrofurantoin See Rx Instructions .Route 08/14/22 09/26/22 1 Day Ago Rx monohydrate/macrocrystals 100 mg .COMPLEX #60 caps ~09/25/22 capsule Allergies Allergy/AdvReac Type Severity Reaction Status Date / Time No Known Allergies Allergy Verified 09/26/22 09:50 PFSH PFSH: Medical History Adenocarcinoma of cervix Aftercare following surgery of the genitourinary system Aftercare following surgery of the genitourinary system Clarendon-Walker grade 3 rectocele Chronic cystitis Gastro-esophageal reflux disease without esophagitis Pelvic floor relaxation Urgency incontinence Surgical History H/O colonoscopy H/O rectocele repair 04/11/2021- posterior colporrhaphy and sacrospinous fixation performed by Dr. Tamez at [facility] H/O vaginal surgery 07/05/2020-anterior colporrhaphy augmented with allograft and single incision mid urethral sling, performed by Dr. Tamez at [facility] H/O vaginal surgery Anterior colporrhaphy augmented with allograft. Single incision mid urethral sling preformed on 07/05/[address] Tamez at [facility] History of facelift Hx of foot surgery bilateral Hx of hand surgery rt S/P hysterectomy Status post abdominoplasty Family History Father , at age 54 CAD (coronary artery disease) Hypertension Stroke Mother , at age 87 Dementia Thyroid condition Brother Hyperlipidemia Heart disease Denies family history of Colon cancer Ovarian cancer Diabetes Breast cancer Anesthesia complication Bleeding disorder Uterine cancer Social History Smoking and tobacco status: never smoked Quit status (tobacco): has quit using tobacco Year quit tobacco: 2006 Alcohol intake: current Alcohol intake frequency: 0-2 Drinks per Day Substance/Drug Use: never Vital Signs Vitals Signs: Last Vital Signs Temp 97.9 F 09/27/22 08:47 Pulse 76 09/27/22 08:47 Resp 18 09/27/22 08:47 BP 114/81 09/27/22 08:47 Pulse Ox 96 09/27/22 08:47 O2 Del Method Room Air 09/27/22 08:48 Weight: Weight last 48 hrs Weight 140 lb Physical Exam Narrative: EXAM NARRATIVE: ?Patient is alert and oriented ?3 and in no acute distress.? The following is a focused bilateral lower extremity exam. Accompanied by her Robles. VASCULAR: Dorsalis pedis and posterior tibial arteries palpable +2.? Capillary refill time less than 3 seconds to the distal hallux bilaterally. Calf is supple and nontender proximally and distally.? No pedal edema appreciated.? Pedal hair growth present. NEUROLOGICAL: Epicritic and protopathic sensations grossly intact to the lower extremities.? +2 Achilles tendon reflex noted bilaterally.? Negative Tinel sign upon percussion of lower extremity nerves. DERMATOLOGICAL: Lower extremity skin is well-hydrated, normal texture and turgor.? There are no open sores or lesions noted to the lower extremities.? No erythema or ecchymosis present to the bilateral legs and feet. MUSCULOSKELETAL: Hammertoe deformity toes 2 through 5 with transverse plane dominance, no significant sagittal plane or frontal plane component.? Pain to palpation at the left second and third metatarsal phalangeal joints.? Pain to palpation at the second intermetatarsal space left foot with positive Meera's c lick.? Pes planus foot type bilaterally with collapse of the longitudinal arch which is partially recreated with elevation of the hallux.? Muscle strength 5 out of 5 in all 3 cardinal planes to the bilateral foot and ankle.? No tenderness to palpation at the left anterior talofibular ligament.? Negative anterior drawer sign and negative talar tilt test to the left ankle.? No subluxation of the peroneal tendons on exam.? No pain at the medial malleolus left ankle.? No pain at the fifth metatarsal base at the left. CARDIOVASCULAR: S1, S2, normal rate, normal rhythm.? Dorsalis pedis and posterior tibial arteries palpable. LUNGS: Clear to auscltation, no use of acessory muscles, no crackles or wheezes. A&P Assessment and plan (1) Hammertoe of left foot: (2) Metatarsalgia, left foot: (3) Quan's neuroma of left foot: Plan Patient examined and evaluated, findings and treatment options were discussed with patient at length.? She has had a progression of hammertoe deformities that are now painful and affecting her overall quality of life with everyday living.? She has noticed a progression of contracture at the hammertoe and pain that is not alleviated by changing her shoes, wearing supportive shoes, wearing orthotics [id number]-uejxldg, daily stretching and anti-inflammatories would like to discuss surgical options.? She is also having pain at her left second metatarsal space Quan's neuroma.? Proposed procedures hammertoe correction of left second and third digit.? Plantar plate repair of left second and third metatarsal phalangeal joints and excision of left second Quan's neuroma.? I reviewed at length with the patient, the risks, potential complications, benefits, alternatives, expectations, and typical outcomes associated with the surgery. The risks and potential complications were explained in detail, including but not limited to infection, wound dehiscence or soft tissue complications, bleeding and hematoma, chronic edema, neuritis or nerve damage producing numbness or chronic pain, CRPS, failure to relieve pain or worsening pain, thick / painful / unsightly scar, limited motion / stiffness, malposition, delayed union, malunion, or nonunion, fracture, reaction to implants, anesthetic complications, venous thromboembolism, and deformity recurrence.? I discussed the notion of no regrets with the patient as it pertains to complications and outcomes. The patient seemed to understand the nature of the proposed care and required convalescence. They asked appropriate questions, answered to their satisfaction. They are aware no guarantees can be made as to a satisfactory outcome and they understand there may be other possible unforeseen complications or outcomes not listed here that will be treated accordingly if they arise. There were no written or implied guarantees given to the patient. They gave informed consent to proceed. 09/27/2022 Hammertoe correction left second toe and left toe. Plantar plate repair right second and third metatarsal phalangeal joints. Excision of Quan's neuroma left second intermetatarsal space MAC, gurney, supine, mini C arm, TPS, 120 minutes Coding Level of Care Code Acute Code for Chg Fwd Diagnoses Hammertoe of left foot M20.42 Metatarsalgia, left foot M77.42 Quan's neuroma of left foot G57.62
[2022-09-27] MEDS: ceFAZolin 2,000 MG in sodium chloride 0.9% (plus) 50 ML 100 MG IV (09:46)
[2022-09-27 11:03] VITALS: BP 99/63; PULSE 66; RESP 16; TEMP 36.1; O2SAT 95
[2022-09-27 11:07] VITALS: BP 98/69; PULSE 66; RESP 16; O2SAT 96
--- NOTE | 2022-09-27 11:08 | XR_ITS ---
WS: [id number] Exam: XR foot LT min 3V* [id number] Date/Time of Exam: 09/27/2022 11:09 AM Reason For Exam: post op Comparison 09/27/2022 at 8:10 AM. Orthopedic pins courses through the long axis of the second and third toes and the end in the distal metatarsals. There are osteotomies involving the heads of the second and third metatarsals. Previous ly noted second toe dislocation has been reduced. The foot is stabilized in a splint. XR/XR foot LT min 3V* [id number] IMPRESSION: 1. Postoperative changes of the second and third rays as noted above.
[2022-09-27 11:12] VITALS: BP 104/67; PULSE 59; RESP 16; O2SAT 95
[2022-09-27 11:17] VITALS: BP 112/75; PULSE 70; RESP 16; O2SAT 94
[2022-09-27 11:54] VITALS: BP 126/74; PULSE 74; RESP 18; O2SAT 95
--- NOTE | 2022-09-27 11:54 | P.ANESASSM_ITS ---
Pre-Anesthetic Assessment Height/Weight: Height 1.63 m Weight 63.503 kg Temp Pulse Resp BP Pulse Ox O2 Del Method 97 F L 74 18 126/74 95 Room Air 09/27/22 11:03 09/27/22 11:54 09/27/22 11:54 09/27/22 11:54 09/27/22 11:54 09/27/22 11:54 Preop Diagnosis: Second and third hammertoe and second intermetatarsal neuroma left foot. Operation Date: 09/27/22 11:20 Proposed Procedures p ?Stefany Osteotomy left second and third metatarsals 37705 x2.? 44052 x2.? 50488 x2.? 46155,?G57.62, M20.4, S96.21, M24.27 , Q68.8,M21.6X(Left) - FELIZ Lawson Flexor tendon repair left second and third metatarsal phalangeal joints(Left) - FELIZ Lawson Left second and third hammertoe correction(Left) - FELIZ aLwson Nerve decompression left second intermetatarsal space(Left) - Marko Suarez DPM Familial anesthetic complications: none Was Beta Yaerd taken within 24 hours: N/A Was Clonidine taken within 24 hours: N/A Last intake: Intake Last Liquid Date 09/26/22 Last Liquid Time 06:00 Last Solid Date 09/26/22 Last Solid Time 18:00 Social No alcohol and No tobacco Exam alert, oriented x 3, clear to auscultation bilaterally and regular rate & rhythm Airway Submandibular: within normal limits Cervical ROM: within normal limits Mallampati: Class I Dentition: false Musc/skel Lower Back Pain and Osteoarthritis/DJD Neuropsych Anxiety and Depression Anesthetic Plan ASA status: 2 Anesthesia: MAC Medications/Allergies Home Medications Medication Instructions Recorded Confirmed Last Taken Type gogftcckafym-mrorpiqj-emwarrb-folic 1 tab PO QDAY 06/25/19 09/26/22 1 Day Ago History acid 400 mcg-vit K1 20 mcg tablet ~09/25/22 (One-A-Day Women's 50 Plus) Lactobacillus 1 cap PO DAILY 11/05/19 09/26/22 1 Day Ago History acidophil,plantar-Bifido no.7 15 ~09/25/22 billion cell capsule (up4 Probiotics Adult) oxybutynin chloride 10 mg 10 mg PO DAILY 05/23/20 09/26/22 1 Day Ago History tablet,extended release 24 hr ~09/25/22 bupropion HCl 150 mg 24 hr tablet, 200 mg PO QAM 06/12/20 09/26/22 09/27/22 06:30 History extended release (Wellbutrin XL) escitalopram oxalate 10 mg tablet 10 mg PO DAILY 06/12/20 09/26/22 09/27/22 06:30 History (Lexapro) mineral oil 5 ml PO DAILY 05/21/21 09/26/22 Unknown History lithium carbonate 300 mg capsule 300 mg PO QPM 09/21/21 09/26/22 1 Day Ago History ~09/25/22 Custom Molded Orthotics #1 ea 11/19/21 08/14/22 Unknown Rx ASO to the Left #1 ea 03/07/22 08/14/22 Unknown Rx ibuprofen 800 mg tablet 800 mg PO Q8H PRN pain #30 tabs 05/08/22 09/26/22 Unknown Rx nitrofurantoin See Rx Instructions .Route 08/14/22 09/26/22 1 Day Ago Rx monohydrate/macrocrystals 100 mg .COMPLEX #60 caps ~09/25/22 capsule hydrocodone 10 mg-acetaminophen 1 tab PO Q4H PRN pain 7 days #28 09/27/22 Unknown Rx 325 mg tablet tabs Allergies Allergy/AdvReac Type Severity Reaction Status Date / Time No Known Allergies Allergy Verified 09/26/22 09:50 Current Medications Generic Name Dose Route Start Last Admin Trade Name Freq PRN Reason Stop Dose Admin Sodium Chloride 1,000 mls @ 30 mls/hr 09/27/22 08:45 09/27/22 11:26 Sodium Chloride 0.9% IV 09/28/22 08:44 Infused .Q24H HARRIET Infusion PFSH Anesthesia Medical History Adenocarcinoma of cervix Aftercare following surgery of the genitourinary system Aftercare following surgery of the genitourinary system [place]-Walker grade 3 rectocele Chronic cystitis Gastro-esophageal reflux disease without esophagitis Pelvic floor relaxation Urgency incontinence Surgical History H/O colonoscopy H/O rectocele repair 04/11/2021- posterior colporrhaphy and sacrospinous fixation performed by Dr. Tamez at [facility] H/O vaginal surgery 07/05/2020-anterior colporrhaphy augmented with allograft and single incision mid urethral sling, performed by Dr. Tamez at [facility] H/O vaginal surgery Anterior colporrhaphy augmented with allograft. Single incision mid urethral sling preformed on 07/05/[address] Tamez at [facility] History of facelift Hx of foot surgery bilateral Hx of hand surgery rt S/P hysterectomy Status post abdominoplasty Family History Father , at age 54 CAD (coronary artery disease) Hypertension Stroke Mother , at age 87 Dementia Thyroid condition Brother Hyperlipidemia Heart disease Denies family history of Colon cancer Ovarian cancer Diabetes Breast cancer Anesthesia complication Bleeding disorder Uterine cancer Social History Smoking and tobacco status: never smoked Quit status (tobacco): has quit using tobacco Year quit tobacco: 2006 Alcohol intake: current Alcohol intake frequency: 0-2 Drinks per Day Substance/Drug Use: never Data Anesthesia Cardiac Studies: No Data to Display
--- NOTE | 2022-09-27 12:54 | ANE.PACU2 ---
Inpatient post-anesthesia follow up: Airway intact: Yes Vital signs: Temperature 97 F Pulse Rate 74 Respiratory Rate 18 Blood Pressure 126/74 Pulse Oximetry 95 Oxygen Delivery Me thod Room Air Oxygen Flow Rate Fraction of Inspir ed Oxygen Hydration adequate: Yes Nausea and vomiting: No Pain level: 1 Mental status: Baseline
--- NOTE | 2022-09-27 21:00 | PM.OP ---
Operative Report Date of procedure: August Pre-op diagnosis: Left foot pain Metatarsalgia left foot Metatarsus adductus left foot Left second hammertoe deformity Left third hammertoe deformity Left second intermetatarsal neuroma Post-op diagnosis: Left foot pain Metatarsalgia left foot Metatarsus adductus left foot Left second hammertoe deformity Left third hammertoe deformity Left second intermetatarsal neuroma Procedure done: Stefany osteotomy left second metatarsal. CPT code 01204 Stefany osteotomy left third metatarsal. CPT code 15078 Left second hammertoe correction. CPT code 10427 Left third hammertoe correction. CPT code 79372 External neurolysis and decompression of left second intermetatarsal Quan's neuroma. CPT code 16649 Implants: 0.062 K wire x2 [place] 28 snap off screw second metatarsal osteotomy [place] 28 snap off screw third metatarsal osteotomy 2-0 Vicryl 4-0 Vicryl 4-0 nylon Specimens removed/disposition: None Pathology: None Surgeon: Marko Suarez D.P.M. Unified Communications Architect: See intraoperative documentation Estimated blood loss: 5 See intraoperative documentation IV fluids: None Urine output: None Complications: None Brief History: Patient examined and evaluated, findings and treatment options were discussed with patient at length.? She has had a progression of hammertoe deformities that are now painful and affecting her overall quality of life with everyday living.? She has noticed a progression of contracture at the hammertoe and pain that is not alleviated by changing her shoes, wearing supportive shoes, wearing orthotics [id number], daily stretching and anti-inflammatories would like to discuss surgical options.? She is also having pain at her left second metatarsal space Quan's neuroma.? Proposed procedures hammertoe correction of left second and third digit.? Plantar plate repair of left second and third metatarsal phalangeal joints and excision of left second Quan's neuroma.? I reviewed at length with the patient, the risks, potential complications, benefits, alternatives, expectations, and typical outcomes associated with the surgery. The risks and potential complications were explained in detail, including but not limited to infection, wound dehiscence or soft tissue complications, bleeding and hematoma, chronic edema, neuritis or nerve damage producing numbness or chronic pain, CRPS, failure to relieve pain or worsening pain, thick / painful / unsightly scar, limited motion / stiffness, malposition, delayed union, malunion, or nonunion, fracture, reaction to implants, anesthetic complications, venous thromboembolism, and deformity recurrence.? I discussed the notion of no regrets with the patient as it pertains to complications and outcomes. The patient seemed to understand the nature of the proposed care and required convalescence. They asked appropriate questions, answered to their satisfaction. They are aware no guarantees can be made as to a satisfactory outcome and they understand there may be other possible unforeseen complications or outcomes not listed here that will be treated accordingly if they arise. There were no written or implied guarantees given to the patient. They gave informed consent to proceed. Procedure: Under mild sedation the patient was brought to the operating room and remained on the gurney in supine position. A timeout was performed. Anesthesia was then administered by the anesthesia service. Local anesthesia injected by myself consisting of 20 cc of Marcaine and Exparel in a second third ray block fashion to the left foot. Well-padded pneumatic tourniquet was applied to the left ankle. The left lower extremity was scrubbed, prepped and draped utilizing normal aseptic technique. Left foot was exanguinated with an Esmarch bandage and the tourniquet was then inflated to 250 mmHg. Attention was directed to the dorsal aspect of the left forefoot where a dual incision was performed over the second and third toe coursing proximally in a lazy S pattern proximal to the second and third metatarsal phalangeal joint. Incision was made through skin with #15 blade. Dissection was then carried down through subcutaneous tissue within both the second and third ray incision down to the level of the proximal interphalangeal joint, the extensor tendons at the level of the proximal interphalangeal joint were transected with a 15 blade and tagged with a hemostat both at the second and third toes. Dissection was then carried down under the extensor tendon sheath reflecting the second and third toe extensor tendons proximally and this was carried out proximal to the level of the second and third metatarsal phalangeal joint. Next a transverse capsulotomy was performed at the left second and third metatarsal phalangeal joints followed by a Stefany osteotomy beginning at the most superior surface of the articular cartilage at the second and third metatarsal heads. Osteotomy was performed of the left second and third metatarsals utilizing a sagittal saw and the left second and third metatarsal heads were translated proximally 3 mm and fixated utilizing a [place] 28 snap off screw with excellent bony apposition and compression noted. The dorsal shelf was then transected with a rongeur and smoothed with a hand rasp at the second and third metatarsal heads. Within the second and third ray incision dissection was carried down deeper into the second intermetatarsal space down to the level of the plantar intermetatarsal nerve at the second metatarsal space which was identified and external neurolysis was performed releasing all constricting tissue and fibrosis around the nerve once the nerve was mobilized the deep transverse intermetatarsal ligament was released decompressing the second intermetatarsal space. Attention was then directed to the level of the second and third proximal interphalangeal joints where the head of the proximal phalanx of the second and third toe as well as the base of the intermediate phalanx of the second and third toe were transected of the articular surface. A 0.062 K wire was then integrated at the base of the intermediate phalanx of the second and third toe and then retrograded into the proximal phalanx within the medullary canal and holding the second third toe in a rectus position were further fixated and stabilized crossing the K wire at the metatarsal phalangeal joint. The incisions were flushed with copious amounts of Staticin solution. The extensor tendons at the second third toes were reapproximated utilizing 4-0 Vicryl. Capsular tendon balancing was then performed at the second and third metatarsophalangeal joint also utilizing 4-0 Vicryl with capsular repair and collateral ligament approximation. The incision was irrigated once again with copious amounts of sterile skin solution. Skin was then closed utilizing 4-0 nylon. Pin sites were covered with Boyd ball. Incisions were dressed with Adaptic, sterile 4 x 4's, Kerlix and Gatito wrap. Cam boot was applied to the left foot and the tourniquet was deflated. A prompt hyperemic response was noted to the distal digits of the left foot. Patient tolerated the procedure and anesthesia well and was transferred to the PACU with vital signs stable and vascular status intact. Following a period of postoperative monitoring she will be discharged home. May heel touch for transfers, and was advised to wear the cam boot at all times. Was given at home care instructions and follow-up.
== END | disposition home or self-care (01) ==
PROVIDERS: PCP Family Medicine; Visit Provider Podiatrist Foot & Ankle Surgery
PROC: (CPT 28308; principal; 2022-09-27 11:10)
PROC: (CPT 28285; 2022-09-27 11:10)
PROC: (CPT 28285; 2022-09-27 11:10)
PROC: (CPT 64708; 2022-09-27 11:10)
DX: M20.42 Other hammer toe(s) (acquired), left foot (principal); G57.62 Lesion of plantar nerve, left lower limb; F41.9 Anxiety disorder, unspecified; F32.A Depression, unspecified; K21.9 Gastro-esophageal reflux disease without esophagitis
CPT/HCPCS: 28285 ×2; 28308 ×2; 64704; 73630; 76000; C1713; C9290; J0690; J2250; J2704; J3010; J3490; J7030

== ENCOUNTER → 2022-10-03 14:59 | Outpatient (BNVA) | payer MEDICARE, BC, SELFPAY | PROVIDERS: PCP Family Medicine; Visit Provider Podiatrist Foot & Ankle Surgery | DX: Z98.890 Other specified postprocedural states (principal) | CPT/HCPCS: 73630; 99024 ==

== ENCOUNTER → 2022-10-10 14:51 | Outpatient (BNVA) | payer MEDICARE, BC, SELFPAY | PROVIDERS: PCP Family Medicine; Visit Provider Podiatrist Foot & Ankle Surgery | DX: Z98.890 Other specified postprocedural states (principal) | CPT/HCPCS: 73630; 99024 ==

== ENCOUNTER → 2022-10-24 13:27 | Outpatient (BNVA) | payer MEDICARE, BC, SELFPAY | PROVIDERS: PCP Family Medicine; Visit Provider Podiatrist Foot & Ankle Surgery | DX: Z98.890 Other specified postprocedural states (principal) | CPT/HCPCS: 73630; 99024 ==

== ENCOUNTER → 2022-10-31 09:58 | Outpatient (BNVA) | payer MEDICARE, BC, SELFPAY | PROVIDERS: PCP Family Medicine; Visit Provider Podiatrist Foot & Ankle Surgery | DX: S99.922A Unspecified injury of left foot, initial encounter (principal); X58.XXXA Exposure to other specified factors, initial encounter | CPT/HCPCS: 20670; 99024 ==

== ENCOUNTER → 2022-12-05 12:55 | Outpatient (BNVA) | payer MEDICARE, BC, SELFPAY | PROVIDERS: PCP Family Medicine; Visit Provider Podiatrist Foot & Ankle Surgery | DX: Z98.890 Other specified postprocedural states (principal); S99.921A Unspecified injury of right foot, initial encounter; X58.XXXA Exposure to other specified factors, initial encounter | CPT/HCPCS: 73630; 99024 ==

== ENCOUNTER → 2023-02-20 08:33 | Outpatient (BNVA) | payer MEDICARE, BC, SELFPAY | PROVIDERS: PCP Family Medicine; Visit Provider Physician Assistant | DX: Z98.1 Arthrodesis status (principal); M54.50 Low back pain, unspecified | CPT/HCPCS: 72100; 99213 ==

== ENCOUNTER → 2023-04-22 14:48 | Outpatient (BNVA) | payer MEDICARE, BC, SELFPAY | PROVIDERS: PCP Family Medicine; Visit Provider Physician Assistant | DX: Z98.1 Arthrodesis status (principal); Z47.89 Encounter for other orthopedic aftercare | CPT/HCPCS: 72100; 99213 ==

== ENCOUNTER → 2023-08-26 15:41 | Outpatient (BNVA) | payer MEDICARE, SELFPAY | PROVIDERS: PCP Family Medicine; Visit Provider Orthopaedic Surgery | DX: M54.9 Dorsalgia, unspecified (principal); M48.062 Spinal stenosis, lumbar region with neurogenic claudication | CPT/HCPCS: 72100; 99214 ==

== ENCOUNTER 2023-09-01 06:43 | Outpatient (CLI) | payer MEDICARE, SELFPAY ==
--- NOTE | 2023-09-01 07:00 | CT_ITS ---
WS: [id number] CT LUMBAR SPINE, noncontrast. HISTORY: back pain TECHNIQUE: Contiguous 2.0 mm axial imaging are performed. Sagittal and coronal reformats are submitte d and reviewed. All CT scans at [facility] use at least one of these dose optimization techni ques: automated exposure control; mA and/or kV adjustment per patient size (includes targeted exams w here dose is matched to clinical indication); or iterative reconstruction. IV contrast: None DLP: 310.34 mGy.cm COMPARISON: Radiograph 08/26/2023 Status post lumbosacral fusion from L4-S1. Long sacral screws extend through the SI joints. Interbody spacers are at L4-5 and L5-S1 and appear appropriate. No subsidence of the spacers. No fracture through the hardware. Large posterior laminectomy defect at L4 and L5. L1-2: Shallow LEFT paracentral disc protrusion contacts the LEFT lateral thecal sac. No stenosis. L2-3: Mild annular disc bulging. No stenosis. L3-4: Mild annular disc bulging with shallow bilateral paracentral disc protrusions causing mild encr oachment and narrowing of the subarticular recesses. Mild central stenosis. L4-5: Large laminectomy defect. Widely patent thecal sac. Foramina are poorly visualized due to the a rtifact. L5-S1: Widely patent thecal sac. No significant stenosis. RIGHT hepatic cyst 3.3 x 3.1 cm. Mild atherosclerosis aorta. IMPRESSION: 1. Post fusion from L4-S1. No hardware fracture. 2. Large laminectomy defects at L4 and L5. 3. Interbody spacers at L4-5 and L5-S1 are appropriate with no subsidence. 4. Shallow LEFT paracentral disc protrusion at L1-2. 5. Bilateral paracentral shallow disc protrusions at L3-4 causing mild narrowing of the subarticular recesses. Mild central stenosis.
== END 2023-09-01 06:44 | disposition home or self-care (01) ==
LOC: RAD 06:44
PROVIDERS: PCP Family Medicine; Visit Provider Orthopaedic Surgery
DX: M48.062 Spinal stenosis, lumbar region with neurogenic claudication (principal); M51.16 Intervertebral disc disorders with radiculopathy, lumbar region
CPT/HCPCS: 72131

== ENCOUNTER → 2023-09-16 16:05 | Outpatient (BNVA) | payer MEDICARE, SELFPAY | PROVIDERS: PCP Family Medicine; Visit Provider Orthopaedic Surgery | DX: M54.9 Dorsalgia, unspecified (principal) | CPT/HCPCS: 72110; 99214 ==

== ENCOUNTER → 2023-10-13 09:31 | Outpatient (BNVA) | payer MEDICARE, SELFPAY | PROVIDERS: PCP Family Medicine; Referring Provider Orthopaedic Surgery; Visit Provider Anesthesiology Pain Medicine | DX: M48.062 Spinal stenosis, lumbar region with neurogenic claudication (principal) | CPT/HCPCS: 99205 ==

== ENCOUNTER → 2023-10-23 13:48 | Outpatient (BNVA) | payer MEDICARE, SELFPAY | PROVIDERS: PCP Family Medicine; Visit Provider Anesthesiology Pain Medicine | DX: M79.18 Myalgia, other site (principal); M48.062 Spinal stenosis, lumbar region with neurogenic claudication | CPT/HCPCS: 20553; 99214; J1010; J3490 ==

== ENCOUNTER → 2023-11-19 09:32 | Outpatient (BNVA) | payer MEDICARE, SELFPAY | PROVIDERS: PCP Family Medicine; Visit Provider Anesthesiology Pain Medicine | DX: M48.062 Spinal stenosis, lumbar region with neurogenic claudication (principal) | CPT/HCPCS: 99214 ==

== ENCOUNTER 2023-12-17 07:17 | Outpatient (RCR) | payer MEDICARE, SELFPAY | END 2023-12-31 23:59 | disposition home or self-care (01) | LOC: SPT 07:17 | PROVIDERS: PCP Family Medicine; Visit Provider Anesthesiology Pain Medicine | DX: M54.50 Low back pain, unspecified (principal); G89.29 Other chronic pain | CPT/HCPCS: 97110; 97161; G0283 ==

== ENCOUNTER 2024-01-26 08:29 | Outpatient (RCR) | payer MEDICARE, SELFPAY | END 2024-01-29 15:54 | disposition home or self-care (01) | LOC: SPT 08:29 | PROVIDERS: PCP Family Medicine; Visit Provider Anesthesiology Pain Medicine | DX: M54.50 Low back pain, unspecified (principal); G89.29 Other chronic pain | CPT/HCPCS: 97110; G0283 ==

== ENCOUNTER → 2024-03-04 14:30 | Outpatient (BNVA) | payer MEDICARE, SELFPAY | PROVIDERS: PCP Family Medicine; Visit Provider Orthopaedic Surgery | DX: M54.9 Dorsalgia, unspecified (principal) | CPT/HCPCS: 72110; 99214 ==

== ENCOUNTER 2024-03-18 16:09 | Outpatient (CLI) | payer MEDICARE, SELFPAY ==
--- NOTE | 2024-03-18 16:45 | MR_ITS ---
WS: [id number] MRI LUMBAR SPINE NONCONTRAST TECHNIQUE: Sagittal T1, T2 and STIR imaging. Axial T1 and T2 imaging. CLINICAL INFORMATION: back pain COMPARISON: CT 09/01/2023 and MRI 08/13/2021 FINDINGS: Mild lumbar curve. No acute compression. Pedicle screw fixation L4-S2 with interbody fusion grafts L4 -L5 and L5-S1. Associated laminectomy defects. No high-grade central canal stenosis. Spinal canal is patent at the fusion levels. Fusion is new since the prior examination. L1-L2: Mild annular bulging. Slight narrowing LEFT subarticular recess. Mild facet arthropathy. Zainab en are patent. L2-L3: Mild disc bulging with mild central canal stenosis. Impingement of the traversing L3 nerve noreen ts bilaterally with narrowing of the subarticular recess. This is progressed compared to previous. Mo derate facet arthropathy. Mild bilateral foraminal narrowing. L3-L4: Mild annular bulging. Mild central canal stenosis with narrowing of the subarticular recess bi laterally is progressed. Moderate facet arthropathy. Foramen are patent. L4-L5: Postoperative changes pedicle screw fixation with interbody fusion. Spinal canal and foramen a re patent. Laminectomy defects. L5-S1: Postoperative changes pedicle screw fixation. Laminectomy defects. Spinal canal is patent. Mil d LEFT foraminal narrowing. Visualized pelvic bony structures: Normal. Paravertebral soft tissues: Normal. MR/MR lumbar spine wo con* [id number] IMPRESSION: 1. Pedicle screw fixation L4-S2 with bilateral sacroiliac fixation screws. Bethea inectomy defects lower lumbar spine. 2. Spinal canal is patent at the fusion levels. 3. Mild central canal stenosis L2-3 and L3-4 due to disc bulge and facet arthr opathy with ligamentum flavum hypertrophy. This is progressed compared to previ ous with narrowing of the subarticular recess bilaterally. 4. Mild RIGHT L2-3 and LEFT L5-S1 foraminal narrowing.
== END 2024-03-18 16:10 | disposition home or self-care (01) ==
LOC: RAD 16:09
PROVIDERS: PCP Family Medicine; Visit Provider Orthopaedic Surgery
DX: M47.896 Other spondylosis, lumbar region (principal); M43.27 Fusion of spine, lumbosacral region
CPT/HCPCS: 72148

== ENCOUNTER → 2024-03-22 08:19 | Outpatient (BNVA) | payer MEDICARE, SELFPAY | PROVIDERS: PCP Family Medicine; Visit Provider Surgery | DX: K59.04 Chronic idiopathic constipation; R19.5 Other fecal abnormalities; R10.32 Left lower quadrant pain | CPT/HCPCS: 99204 ==

== ENCOUNTER → 2024-03-25 13:55 | Outpatient (BNVA) | payer MEDICARE, SELFPAY | PROVIDERS: PCP Family Medicine; Visit Provider Orthopaedic Surgery | DX: M48.062 Spinal stenosis, lumbar region with neurogenic claudication (principal); Z09 Encounter for follow-up examination after completed treatment for conditions other than malignant neoplasm | CPT/HCPCS: 36415; 72110; 80053; 81001; 85025; 99214 ==

== ENCOUNTER → 2024-04-06 08:58 | Outpatient (BNVA) | payer MEDICARE, SELFPAY | PROVIDERS: PCP Family Medicine; Referring Provider Orthopaedic Surgery; Visit Provider Student in an Organized Health Care Education/Training Program | DX: M79.641 Pain in right hand; M65.351 Trigger finger, right little finger | CPT/HCPCS: 73130; 99204 ==

== ENCOUNTER 2024-04-08 10:21 | Day surgery (SDC) | payer MEDICARE, SELFPAY ==
[2024-04-08] VITALS (7 sets, daily range): BP systolic 127–155; BP diastolic 70–85; PULSE 50–60; RESP 16–18; TEMP 36.1–36.2; O2SAT 95–100
[2024-04-08] MEDS: sodium chloride 0.9% 1,000 ML 30 ML IV (10:58)
[2024-04-08] MEDS: acetaminophen 1,000 MG/100 ML PIGGYBACK 400 MG IV (10:59)
[2024-04-08] MEDS: ketorolac 30 mg/mL INJ IVP (11:05)
--- NOTE | 2024-04-08 11:20 | W.PM.OPSUD ---
Surgery/Procedure H&P Update DATE OF PROCEDURE: April 08, 2024 DATE H&P PERFORMED: 04/06/24 H&P UPDATE INFORMATION: I have reviewed H&P completed within last 30 days, I have examined patient prior to procedure and No changes to prior documentation PREOP DIAGNOSIS: Right small finger trigger PRIMARY INDICATION FOR PROCEDURE: Right small finger trigger PLANNED PROCEDURE: Operation Date: 04/08/24 13:30 Proposed Procedures p right small finger trigger release(Right) - Johnie Brennan DO
--- NOTE | 2024-04-08 11:30 | ANES.PREANE2 ---
Pre-Anesthetic Assessment Height/Weight: Height 1.63 m Weight 63.503 kg Temp Pulse Resp BP Pulse Ox O2 Del Method 97 F L 60 16 127/82 100 Room Air 04/08/24 10:44 04/08/24 10:44 04/08/24 10:44 04/08/24 10:44 04/08/24 10:44 04/08/24 10:44 Preop Diagnosis: Right small finger trigger Operation Date: 04/08/24 13:30 Proposed Procedures p right small finger trigger release(Right) - Johnie Brennan DO Familial anesthetic complications: None Was Beta Yared taken within 24 hours: N/A Was Clonidine taken within 24 hours: N/A Last intake: Intake Last Liquid Date 04/07/24 Last Liquid Time 20:30 Last Solid Date 04/07/24 Last Solid Time 19:00 Social No alcohol and No tobacco Exam alert, oriented x 3, clear to auscultation bilaterally and regular rate & rhythm Airway Mallampati: Class I Dentition: false Musc/skel Lower Back Pain and Osteoarthritis/DJD Anesthetic Plan ASA status: 2 Anesthesia: MAC Risk of > 500 ml blood loss (7ml/kg in children): No Medications/Allergies Home Medications Medication Instructions Recorded Confirmed Last Taken Type azqluhqhqwim-prsrxare-onmexdr-folic 1 tab PO QDAY 06/25/19 04/08/24 04/07/24 08:00 History acid 400 mcg-vit K1 20 mcg tablet (One-A-Day Women's 50 Plus) Lactobacillus 1 cap PO DAILY 11/05/19 04/08/24 1 Day Ago History acidophil,plantar-Bifido no.7 15 ~09/25/22 billion cell capsule (up4 Probiotics Adult) oxybutynin chloride 10 mg 10 mg PO DAILY 05/23/20 04/08/24 04/07/24 08:00 History tablet,extended release 24 hr bupropion HCl 150 mg 24 hr tablet, 200 mg PO QAM 06/12/20 04/08/24 04/07/24 08:00 History extended release (Wellbutrin XL) escitalopram oxalate 10 mg tablet 10 mg PO DAILY 06/12/20 04/08/24 04/07/24 08:00 History (Lexapro) mineral oil 5 ml PO DAILY 05/21/21 04/08/24 Unknown History lithium carbonate 300 mg capsule 300 mg PO QPM 09/21/21 04/08/24 04/06/24 21:00 History Custom Molded Orthotics #1 ea 11/19/21 04/06/24 Unknown Rx ibuprofen 800 mg tablet 800 mg PO Q8H PRN pain #30 tabs 10/13/23 04/08/24 Unknown Rx linaclotide 72 mcg capsule 72 mcg PO DAILY #30 caps 03/22/24 04/08/24 04/07/24 Rx (Linzess) nitrofurantoin 100 mg PO ONCE 03/22/24 04/08/24 04/07/24 08:00 History monohydrate/macrocrystals 100 mg capsule tramadol 50 mg tablet 50 mg PO Q6H PRN pain 5 days #20 04/08/24 Unknown Rx tabs Allergies Allergy/AdvReac Type Severity Reaction Status Date / Time No Known Allergies Allergy Verified 04/07/24 12:27 Current Medications Generic Name Dose Route Start Last Admin Trade Name Freq PRN Reason Stop Dose Admin Sodium Chloride 1,000 mls @ 30 mls/hr 04/08/24 10:45 04/08/24 10:58 Sodium Chloride 0.9% IV 04/09/24 10:44 30 mls/hr .Q24H HARRIET Administration PFSH Anesthesia Medical History Aftercare following surgery of the genitourinary system [place]-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 Tamez at [facility] H/O vaginal surgery Anterior colporrhaphy augmented with allograft. Single incision mid urethral sling preformed on 07/05/[address] Tamez at [facility] History of facelift H/O colonoscopy Hx of foot surgery bilateral Hx of hand surgery rt Status post abdominoplasty H/O vaginal surgery 07/05/2020-anterior colporrhaphy augmented with allograft and single incision mid urethral sling, performed by Dr. Tamez at [facility] S/P hysterectomy Family History Father , at age 54 CAD (coronary artery disease) Hypertension Stroke Mother , at age 87 Dementia Thyroid disease Brother Hyperlipidemia Heart disease Denies family history of Colon cancer Ovarian cancer Diabetes Breast cancer Anesthesia complication Bleeding disorder Uterine cancer Social History Smoking and tobacco/nicotine status: unknown if used tobacco/nicotine Quit status (tobacco/nicotine): has quit using Year quit tobacco: 2006 Alcohol intake: current Alcohol intake frequency: 0-2 Drinks per Day Substance/Drug Use: never Data Anesthesia Cardiac Studies: No Data to Display
[2024-04-08] MEDS: ceFAZolin 2,000 MG in sodium chloride 0.9% (plus) 50 ML 100 MG IV (12:40)
[2024-04-08] MEDS: ROPivacaine 0.5% SDV 30 mL 48 MG INJECTION (13:00)
[2024-04-08] MEDS: lidocaine 1% 10 ML INJ 4 ML XX (13:00)
--- NOTE | 2024-04-08 13:34 | W.PM.BPON ---
Date of Procedure: 04/08/2024 Surgeon: Johnie Brennan DO Type Casting Machine Operator(s): None Procedure(s) performed: Right small finger trigger release Findings of the procedure(s): Patient found to have a right small finger trigger underwent procedure as planned without issues or complications Estimated blood loss: 2 mL Specimen(s) removed: None Post-operative diagnosis: Right small finger trigger
--- NOTE | 2024-04-08 13:35 | PM.OP ---
Operative Report Date of procedure: April 08, 2024 Surgeon: Johnie Brennan DO Procedure: Preoperative diagnosis: Right small finger trigger Post-op diagnosis: Same Procedure done: Right Small finger?trigger?release Surgeon: Johnie Brennan DO Estimated blood loss: 2cc Tourniquet time 6mins Complications: None Condition: stable Disposition: same day Brief History: Patient's been seen and worked up in the outpatient setting and findings consistent with preoperative diagnosis of right Small finger?trigger.? She is failed conservative approach at this time and continues to have mechanical locking and catching.? Severe pain as well.? We talked about treatment options nonoperative versus operative intervention.? ?Patient understands the risk benefits complication alternatives of surgical nonsurgical treatment options.? Understanding risks with surgery patient elects proceed with surgical intervention.? Consent obtained.? Here today to proceed with surgical intervention.? All questions answered. Procedure: Patient was seen and evaluated in the preoperative holding area.? Consent was reviewed and signed with patient.? Seen evaluated by Anesthesia Department.? Once cleared for surgery was brought back to the operative suite.? Placed in supine position on the OR table all bony prominences well-padded patient properly secured to the bed.? Patient's right arm was then placed to the armboard.? A nonsterile tourniquet applied to the right upper arm.? Patient's right upper extremity was then prepped and draped in standard orthopedic fashion.? Final timeout performed.? Patient received appropriate preoperative antibiotics. Esmarch tourniquet was used exsanguinate the right upper extremity tourniquet insufflated to 250 mmHg. Under sterile aseptic technique local digital block was performed to the right Small finger.? Once appropriately anesthetized a standard oblique incision was made centering over the A1 alejandro following patient's flexor crease.? Sharp scalpel incision was made only through skin and then switched to Littler dissection scissors and spread longitudinally directly over the flexor tendon sheath.? I then mobilized both radially and ulnarly and Kasdan retractors were used and placed by my diversional therapist's assistant to protect neurovascular bundle.? Next I visualized the A1 alejandro and this was incised with a scalpel.? I then switched to dissection scissors and?released the A1 alejandro both proximally as well as distally to its entirety.? Significant tendon sheath fluid was noted consistent with inflammation.? Mild fraying of the flexor tendons noted but no tear.? At this point I utilized a rag nail and pulled the tendons FDS and FDP out of the incision and no?triggering was noted.? I then had anesthesia wake up the patient and patient was able to actively flex and extend with no?triggering.? This point thorough irrigation was performed.? Tourniquet deflated hemostasis satisfactory with bipolar.? I then subsequently closed the incision with interrupted nylon suture.? Xeroform 4 x 4's, Kerlix and an Gatito wrap was applied for a bulky soft dressing.? Patient was then subsequently awakened from anesthesia and taken to PACU in stable condition tolerated procedure without issues. Disposition: Patient taken back in stable condition recovering well.? Patient will receive appropriate discharge instruction as well as pain medication postoperatively.? Patient to follow-up with me in the office in 2 weeks for repeat evaluation and incision check.? Patient understands that any questions or concerns and contact the office.? All questions answered.
--- NOTE | 2024-04-08 14:25 | ANE.PACU2 ---
Inpatient post-anesthesia follow up: Airway intact: Yes Vital signs: Temperature 97.1 F Pulse Rate 60 Respiratory Rate 16 Blood Pressure 140/81 Pulse Oximetry 97 Oxygen Delivery Me thod Room Air Oxygen Flow Rate Fraction of Inspir ed Oxygen Hydration adequate: Yes Nausea and vomiting: No Pain level: 1 Mental status: Baseline
== END 2024-04-08 14:25 | disposition home or self-care (01) ==
PROVIDERS: PCP Family Medicine; Visit Provider Student in an Organized Health Care Education/Training Program
PROC: (CPT 26055; principal; 2024-04-08 13:20)
DX: M65.351 Trigger finger, right little finger (principal); Z87.891 Personal history of nicotine dependence
CPT/HCPCS: 26055; J0131; J0690; J1885; J2795; J3010; J7030

== ENCOUNTER → 2024-04-09 09:17 | Outpatient (BNVA) | payer MEDICARE, SELFPAY | PROVIDERS: PCP Family Medicine; Visit Provider Family Medicine | DX: Z01.818 Encounter for other preprocedural examination (principal) | CPT/HCPCS: 81003; 93005 ==

== ENCOUNTER 2024-04-14 10:17 | Day surgery (SDC) | payer MEDICARE, SELFPAY ==
[2024-04-14 10:33] VITALS: BP 119/79; PULSE 95; RESP 16; TEMP 36.6; O2SAT 97; BMI 24.0
[2024-04-14] MEDS: sodium chloride 0.9% 1,000 ML 30 ML IV (10:50)
--- NOTE | 2024-04-14 12:08 | ANES.PREANE2 ---
Pre-Anesthetic Assessment Height/Weight: Height 5 ft 4 in Weight 140 lb Temp Pulse Resp BP Pulse Ox O2 Del Method 98 F 95 16 119/79 97 Room Air 04/14/24 10:33 04/14/24 10:33 04/14/24 10:33 04/14/24 10:33 04/14/24 10:33 04/14/24 10:33 Preop Diagnosis: Screening colonoscopy Operation Date: 04/14/24 11:30 Proposed Procedures p Colonoscopy 69832, K59.04(Not Applicable) - Hernando Rizvi, DO Was Beta Yared taken within 24 hours: N/A Was Clonidine taken within 24 hours: N/A Last intake: Intake Last Liquid Date 04/13/24 Last Liquid Time 20:00 Last Solid Date 04/12/24 Last Solid Time 18:00 Social No alcohol and No tobacco Exam alert, oriented x 3, clear to auscultation bilaterally and regular rate & rhythm Airway Submandibular: within normal limits Cervical ROM: within normal limits Mallampati: Class II Dentition: false Anesthetic Plan ASA status: 2 Anesthesia: MAC Other: No prior issues with anesthesia Completed bowel prep Recently had a hand procedure done under MAC anesthesia without issues Denies any cardiac or pulmonary issues METs greater than 4 Labs 03/21/2024 reviewed acceptable for procedure Plan for MAC anesthesia Medications/Allergies Home Medications Medication Instructions Recorded Confirmed Last Taken Type xeznrjzcfvau-kjkvbpin-uouijbr-folic 1 tab PO QDAY 06/25/19 04/14/24 04/13/24 History acid 400 mcg-vit K1 20 mcg tablet (One-A-Day Women's 50 Plus) oxybutynin chloride 10 mg 10 mg PO DAILY 05/23/20 04/14/24 04/13/24 History tablet,extended release 24 hr bupropion HCl 150 mg 24 hr tablet, 200 mg PO QAM 06/12/20 04/14/24 04/13/24 History extended release (Wellbutrin XL) escitalopram oxalate 10 mg tablet 10 mg PO DAILY 06/12/20 04/14/24 04/13/24 History (Lexapro) lithium carbonate 300 mg capsule 300 mg PO QPM 09/21/21 04/14/24 04/13/24 History Custom Molded Orthotics #1 ea 11/19/21 04/14/24 Unknown Rx ibuprofen 800 mg tablet 800 mg PO Q8H PRN pain #30 tabs 10/13/23 04/14/24 04/13/24 Rx linaclotide 72 mcg capsule 72 mcg PO DAILY #30 caps 03/22/24 04/14/24 04/13/24 Rx (Linzess) nitrofurantoin 100 mg PO DAILY 04/09/24 04/14/24 Unknown History monohydrate/macrocrystals 100 mg capsule Bone Growth Stimulator #1 ea 04/12/24 04/14/24 Unknown Rx cyclobenzaprine 5 mg tablet 5 mg PO TID PRN muscle spasm 14 04/14/24 04/14/24 Unknown Rx days #42 tabs Allergies Allergy/AdvReac Type Severity Reaction Status Date / Time No Known Allergies Allergy Verified 04/09/24 09:43 [facility] Anesthesia Medical History Aftercare following surgery of the genitourinary system [place]-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 Tamez at [facility] H/O vaginal surgery Anterior colporrhaphy augmented with allograft. Single incision mid urethral sling preformed on 07/05/[address] Tamez at [facility] History of facelift H/O colonoscopy Hx of foot surgery bilateral Hx of hand surgery rt Status post abdominoplasty H/O vaginal surgery 07/05/2020-anterior colporrhaphy augmented with allograft and single incision mid urethral sling, performed by Dr. Tamez at [facility] S/P hysterectomy Family History Father , at age 54 CAD (coronary artery disease) Hypertension Stroke Mother , at age 87 Dementia Thyroid disease Brother Hyperlipidemia Heart disease Denies family history of Colon cancer Ovarian cancer Diabetes Breast cancer Anesthesia complication Bleeding disorder Uterine cancer Social History Smoking and tobacco/nicotine status: never used tobacco/nicotine Quit status (tobacco/nicotine): has quit using Year quit tobacco: 2006 Alcohol intake: current Alcohol intake frequency: 0-2 Drinks per Day Substance/Drug Use: never Data Anesthesia Cardiac Studies: No Data to Display
--- NOTE | 2024-04-14 12:46 | W.PM.OPSUD ---
Surgery/Procedure H&P Update DATE OF PROCEDURE: April 14, 2024 DATE H&P PERFORMED: 03/22/24 H&P UPDATE INFORMATION: I have reviewed H&P completed within last 30 days, I have examined patient prior to procedure and No changes to prior documentation PREOP DIAGNOSIS: Screening colonoscopy PLANNED PROCEDURE: Operation Date: 04/14/24 11:30 Proposed Procedures p Colonoscopy 11364, K59.04(Not Applicable) - Hernando Rizvi DO
[2024-04-14 13:00] VITALS: BP 90/60; PULSE 69; RESP 16; TEMP 36.3; O2SAT 99
[2024-04-14 13:12] VITALS: BP 103/65; PULSE 70; RESP 16; O2SAT 95
[2024-04-14 13:17] VITALS: BP 100/56; PULSE 69; RESP 18; O2SAT 96
--- NOTE | 2024-04-14 13:50 | ANE.PACU2 ---
Inpatient post-anesthesia follow up: Airway intact: Yes Vital signs: Temperature 97.3 F Pulse Rate 69 Respiratory Rate 18 Blood Pressure 100/56 Pulse Oximetry 96 Oxygen Delivery Me thod Room Air Oxygen Flow Rate Fraction of Inspir ed Oxygen Hydration adequate: Yes Nausea and vomiting: No Pain level: 1 Mental status: Baseline
== END 2024-04-14 13:50 | disposition home or self-care (01) ==
PROVIDERS: PCP Family Medicine; Visit Provider Surgery
PROC: 0DJD8ZZ Inspection of Lower Intestinal Tract, Via Natural or Artificial Opening Endoscopic (ICD-10-PCS; CPT 45378; principal; 2024-04-14 11:30)
DX: K59.04 Chronic idiopathic constipation (principal); K57.30 Diverticulosis of large intestine without perforation or abscess without bleeding; R19.5 Other fecal abnormalities; Z87.891 Personal history of nicotine dependence
CPT/HCPCS: 45378; J2704; J7030

== ENCOUNTER → 2024-04-23 08:28 | Outpatient (BNVA) | payer MEDICARE, SELFPAY | PROVIDERS: PCP Family Medicine; Visit Provider Physician Assistant | DX: Z98.890 Other specified postprocedural states (principal); M65.351 Trigger finger, right little finger | CPT/HCPCS: 99024 ==

== ENCOUNTER → 2024-04-26 12:45 | Outpatient (BNVA) | payer MEDICARE, SELFPAY | PROVIDERS: PCP Family Medicine; Visit Provider Surgery | DX: Z09 Encounter for follow-up examination after completed treatment for conditions other than malignant neoplasm (principal); R19.7 Diarrhea, unspecified | CPT/HCPCS: 99214 ==

== ENCOUNTER → 2024-06-10 08:39 | Outpatient (BNVA) | payer MEDICARE, SELFPAY | PROVIDERS: PCP Family Medicine; Visit Provider Orthopaedic Surgery | DX: M48.062 Spinal stenosis, lumbar region with neurogenic claudication (principal) | CPT/HCPCS: 99214 ==

== ENCOUNTER 2024-08-19 08:24 | Outpatient (CLI) | payer MEDICARE, SELFPAY ==
--- NOTE | 2024-08-19 09:00 | MM_ITS ---
WS: [id number] SCREENING DIGITAL TOMOSYNTHESIS MAMMOGRAM WITH CAD HISTORY: screening mammogram COMPARISON: 05/16/2020, 02/20/2018 Bilateral CC and MLO with tomosynthesis views submitted. Synthetic mammography reviewed. Computer aided detection analyzed. Breast composition: There are scattered areas of fibroglandular density. No suspicious masses, microcalcifications or architectural distortion. Stable asymmetries within each breast. MM/MM scr BI tomosynthesis [id number] IMPRESSION: BI-RADS: 2 - Benign. FOLLOW UP: 1 Year Follow-up
== END 2024-08-19 08:25 | disposition home or self-care (01) ==
PROVIDERS: PCP Family Medicine; Visit Provider Family Medicine
DX: Z12.31 Encounter for screening mammogram for malignant neoplasm of breast (principal); R92.323 Mammographic fibroglandular density, bilateral breasts; N64.89 Other specified disorders of breast
CPT/HCPCS: 77063; 77067

== ENCOUNTER → 2024-09-13 08:25 | Outpatient (BNVA) | payer MEDICARE, SELFPAY | PROVIDERS: PCP Family Medicine; Visit Provider Family Medicine | DX: Z13.6 Encounter for screening for cardiovascular disorders (principal); R53.83 Other fatigue | CPT/HCPCS: 80053; 80061; 84443 ==

== ENCOUNTER → 2024-10-19 12:54 | Outpatient (BNVA) | payer MEDICARE, SELFPAY | PROVIDERS: PCP Family Medicine; Visit Provider Orthopaedic Surgery | DX: M54.9 Dorsalgia, unspecified (principal); M48.062 Spinal stenosis, lumbar region with neurogenic claudication | CPT/HCPCS: 36415; 72110; 80053; 81001; 85025; 99214 ==

== ENCOUNTER → 2024-10-29 09:45 | Outpatient (BNVA) | payer MEDICARE, SELFPAY | PROVIDERS: PCP Family Medicine; Visit Provider Family Medicine | DX: Z01.818 Encounter for other preprocedural examination (principal) | CPT/HCPCS: 93005 ==

== ENCOUNTER 2024-11-17 11:45 | Outpatient (CLI) | payer MEDICARE, SELFPAY ==
--- NOTE | 2024-11-17 12:15 | MR_ITS ---
WS: [id number] MRI LUMBAR SPINE NONCONTRAST HISTORY: Back pain, LEFT lower extremity pain. COMPARISON: 03/18/2024 TECHNIQUE: Sagittal and axial multisequence imaging is submitted. Prior posterior fusion from L4-S2 with interbody fusion grafts at L4-5 and L5- S1. Mild LEFT curvature lumbar spine. No acute fractures. There is a small amount of endplate edema at L1-L2. Disc spaces are narrowed and desiccated. Conus terminates normally at L1-2 disc level. L1-L2: Mild annular disc bulging. Broad-based LEFT foraminal disc protrusion. No stenosis. L2-L3: Diffuse annular disc bulge. Mild central stenosis with impingement upon the traversing L3 nerve roots. Similar to the prior exam. Bilateral foraminal stenosis due to disc bulging and osteophytosis. L3-L4: Diffuse annular disc bulging, moderate ligamentum flavum and facet arthritis. Mild central and subarticular recess encroachment. No foraminal stenosis. L4-L5: Mild bilateral foraminal stenosis. L5-S1: Central disc protrusion extends slightly cephalad from the disc level. No contact on the S1 nerve roots. Nerve root sleeve diverticula at S1-S2. Large bilateral laminectomy defects at L4-5 and L5-S1. 3.9 x 3.1 cm cyst medial RIGHT hepatic lobe. MR/MR lumbar spine wo con* [id number] IMPRESSION: 1. Stable pedicle screw fixation from L4-S2. Interbody spacers at L4-5 and L5- S1. Large laminectomy defects at L4-5 and L5-S1. 2. Mild central stenosis at L1-2 and L3-4. Mild bilateral foraminal stenosis a t L2-3 and L4-5. 3. L5-S1: Small central disc protrusion is new and extends cephalad from the d isc level. No significant stenosis. No contact on the S1 nerve roots.
== END 2024-11-17 11:46 | disposition home or self-care (01) ==
PROVIDERS: PCP Family Medicine; Visit Provider Orthopaedic Surgery
DX: M48.061 Spinal stenosis, lumbar region without neurogenic claudication (principal); Z98.890 Other specified postprocedural states; M96.89 Other intraoperative and postprocedural complications and disorders of the musculoskeletal system; M51.27 Other intervertebral disc displacement, lumbosacral region; M51.369 Other intervertebral disc degeneration, lumbar region without mention of lumbar back pain or lower extremity pain; M51.26 Other intervertebral disc displacement, lumbar region; M25.78 Osteophyte, vertebrae; M24.28 Disorder of ligament, vertebrae; M47.896 Other spondylosis, lumbar region; R93.7 Abnormal findings on diagnostic imaging of other parts of musculoskeletal system; K76.89 Other specified diseases of liver
CPT/HCPCS: 72148

== ENCOUNTER → 2024-12-06 10:45 | Outpatient (BNVA) | payer MEDICARE, SELFPAY | PROVIDERS: PCP Family Medicine; Visit Provider Orthopaedic Surgery | DX: T84.84XA Pain due to internal orthopedic prosthetic devices, implants and grafts, initial encounter (principal); Z09 Encounter for follow-up examination after completed treatment for conditions other than malignant neoplasm; X58.XXXA Exposure to other specified factors, initial encounter; Z98.1 Arthrodesis status | CPT/HCPCS: 36415; 80053; 81001; 85025; 99214 ==

== ENCOUNTER 2024-12-17 10:00 | Inpatient (IN) | payer MEDICARE, SELFPAY ==
[2024-12-17] VITALS (10 sets, daily range): BP systolic 90–107; BP diastolic 54–77; PULSE 68–93; RESP 15–21; TEMP 36.1–36.9; O2SAT 95–100; BMI 23.1
--- NOTE | 2024-12-17 06:51 | XR_ITS ---
WS: [id number] C-ARM RADIOGRAPHS LUMBAR SPINE; 2 IMAGES HISTORY: OR PICS COMPARISON: None available. 2 6 images submitted. Posterior fusion hardware and interbody spacers noted. XR/XR lumbar spine 1V [id number] IMPRESSION: Intraoperative imaging during spinal procedure.
--- NOTE | 2024-12-17 08:27 | W.PM.OPSUD ---
Surgery/Procedure H&P Update DATE OF PROCEDURE: December 17, 2024 DATE H&P PERFORMED: 12/06/24 H&P UPDATE INFORMATION: I have reviewed H&P completed within last 30 days, I have examined patient prior to procedure and No changes to prior documentation PREOP DIAGNOSIS: Painful orthopedic hardware in spine PLANNED PROCEDURE: Operation Date: 12/17/24 08:50 Proposed Procedures p Hardware Removal Back(Not Applicable) - Sadi Hernandez DO
--- NOTE | 2024-12-17 08:37 | ANES.PREANE2 ---
Pre-Anesthetic Assessment Height/Weight: Height 1.63 m Weight 61.235 kg Temp Pulse Resp BP Pulse Ox O2 Del Method 98.4 F 93 16 107/77 97 Room Air 12/17/24 07:30 12/17/24 07:30 12/17/24 07:30 12/17/24 07:30 12/17/24 07:30 12/17/24 07:18 Preop Diagnosis: Painful orthopedic hardware in spine Operation Date: 12/17/24 08:50 Proposed Procedures p Hardware Removal Back(Not Applicable) - Sadi Hernandez, DO Familial anesthetic complications: With a previous intubation her uvula got traumatized and swelled so much she couldn't lay down because it caused choking sensation Was Beta Yared taken within 24 hours: N/A Was Clonidine taken within 24 hours: N/A Last intake: Intake Last Liquid Date 12/16/24 Last Liquid Time 18:00 Last Solid Date 12/16/24 Last Solid Time 18:00 Social No alcohol and No tobacco Exam alert, oriented x 3, clear to auscultation bilaterally and regular rate & rhythm Airway Mallampati: Class II Dentition: full Anesthetic Plan ASA status: 2 Anesthesia: General Risk of > 500 ml blood loss (7ml/kg in children): No Medications/Allergies Home Medications ?Medication ?Instructions ?Recorded ?Confirmed ?Last Taken ?Type kvhrajhucioi-eqxdkrsh-vcjirel-folic 1 tab PO QDAY 06/25/19 12/16/24 12/16/24 History acid 400 mcg-vit K1 20 mcg tablet (One-A-Day Women's 50 Plus) ibuprofen 800 mg tablet 800 mg PO Q8H PRN pain #30 tabs 10/13/23 12/16/24 04/13/24 Rx cyclobenzaprine 5 mg tablet 5 mg PO TID PRN muscle spasm 14 04/14/24 12/16/24 Unknown Rx days #42 tabs buspirone 5 mg tablet 5 mg PO BID PRN anxiety #60 tabs 08/17/24 12/16/24 Unknown Rx nitrofurantoin 100 mg PO DAILY #90 caps 08/17/24 12/16/24 12/16/24 Rx monohydrate/macrocrystals 100 mg capsule escitalopram oxalate 10 mg tablet 10 mg PO DAILY #90 tabs 10/04/24 12/16/24 12/16/24 Rx (Lexapro) oxybutynin chloride 10 mg 10 mg PO DAILY #90 tabs 10/04/24 12/16/24 12/16/24 Rx tablet,extended release 24 hr bupropion HCl 300 mg 24 hr tablet, 450 mg PO QAM 12/16/24 Unknown History extended release (Wellbutrin XL) Allergies Allergy/AdvReac Type Severity Reaction Status Date / Time No Known Allergies Allergy Verified 12/16/24 10:33 [facility] Anesthesia Medical History Overactive bladder Anxiety and depression Aftercare following surgery of the genitourinary system [place]-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 Tamez at [facility] H/O vaginal surgery Anterior colporrhaphy augmented with allograft. Single incision mid urethral sling preformed on 07/05/[address] Tamez at [facility] History of facelift H/O colonoscopy Hx of foot surgery bilateral Hx of hand surgery rt Status post abdominoplasty H/O vaginal surgery 07/05/2020-anterior colporrhaphy augmented with allograft and single incision mid urethral sling, performed by Dr. Tamez at [facility] S/P hysterectomy Family History Father , at age 54 CAD (coronary artery disease) Hypertension Stroke Mother , at age 87 Dementia Thyroid disease Brother Hyperlipidemia Heart disease Denies family history of Colon cancer Ovarian cancer Diabetes Breast cancer Anesthesia complication Bleeding disorder Uterine cancer Social History Smoking and tobacco/nicotine status: never used tobacco/nicotine Quit status (tobacco/nicotine): has quit using Year quit tobacco: 2006 Alcohol intake: current Alcohol intake frequency: 0-2 Drinks per Day Substance/Drug Use: never
[2024-12-17] MEDS: ceFAZolin 2,000 mg SDV 2000 MG IVP (08:47)
[2024-12-17] MEDS: lidocaine-epi 1% 20 mL INJ INJECTION (09:08)
--- NOTE | 2024-12-17 10:07 | PM.OP ---
Operative Report Date of procedure: December 17, 2024 Pre-op diagnosis: Painful orthopedic hardware in the lumbar spine Post-op diagnosis: same Procedure done: Removal of deep hardware from lumbar spine/iliac screws Surgeon: Sadi Hernandez DO Estimated blood loss (mL): 15 Procedure: Removal of deep hardware from lumbar spine/iliac screws\ Patient brought the operative suite after undergoing anesthesia patient is placed in the prone position. All areas impingement well-padded. Patient's prepped and draped in Roso fashion. Skin incision made over the bottom half of the incision. The thoracolumbar fascia was identified. Wiltsie approach was made over the right iliac screw. The screw was identified. Andrez was identified. Screw Was removed. The andrez was then cut with a metal bur. And then the screw andrez was removed followed by the screw. This process was then repeated on the left side. Wiltsie approach was used andrez and screw were identified. Andrez was cut. Screw Was removed screw was removed andrez was removed. Wounds were then irrigated closed with Vicryl. Skin was closed with Monocryl. Sterile dressings were applied patient transferred to the PACU in stable condition.
[2024-12-17] MEDS: HYDROcodone-acetaminophen 5-325 mg Tablet 1 TAB PO (10:25)
--- NOTE | 2024-12-17 11:00 | ANE.PACU2 ---
Inpatient post-anesthesia follow up: Airway intact: Yes Vital signs: Temperature 97.0 F Pulse Rate 80 Respiratory Rate 18 Blood Pressure 98/70 Pulse Oximetry 98 Oxygen Delivery Me thod Room Air Oxygen Flow Rate Fraction of Inspir ed Oxygen Hydration adequate: Yes Nausea and vomiting: No Pain level: 1 Mental status: Baseline
== END 2024-12-17 11:02 | disposition home or self-care (01) | DRG 497 ==
LOC: OR 10:10 → MEDSURG 12-18 12:57
PROVIDERS: Admitting Provider Orthopaedic Surgery; PCP Family Medicine; Visit Provider Orthopaedic Surgery
PROC: 0PP404Z Removal of Internal Fixation Device from Thoracic Vertebra, Open Approach (ICD-10-PCS; principal; 2024-12-17 08:30)
DX: T84.84XA Pain due to internal orthopedic prosthetic devices, implants and grafts, initial encounter (principal); Y79.8 Miscellaneous orthopedic devices associated with adverse incidents, not elsewhere classified; X58.XXXA Exposure to other specified factors, initial encounter; N32.81 Overactive bladder; F41.9 Anxiety disorder, unspecified; F32.A Depression, unspecified; Z85.41 Personal history of malignant neoplasm of cervix uteri; K21.9 Gastro-esophageal reflux disease without esophagitis; R32 Unspecified urinary incontinence; N30.20 Other chronic cystitis without hematuria
CPT/HCPCS: 72020; 76000; J0131; J0690; J1100; J2405; J2704; J3010; J3373; J3490; J7030; J9999; P9045

== ENCOUNTER → 2025-01-27 07:56 | Outpatient (BNVA) | payer MEDICARE, SELFPAY | PROVIDERS: PCP Family Medicine; Visit Provider Orthopaedic Surgery | DX: Z98.890 Other specified postprocedural states (principal); Z98.1 Arthrodesis status; M25.551 Pain in right hip | CPT/HCPCS: 72100; 73502; 99024 ==

== ENCOUNTER → 2025-02-09 13:28 | Outpatient (BNVA) | payer MEDICARE, SELFPAY | PROVIDERS: PCP Family Medicine; Visit Provider Physician Assistant | DX: M70.61 Trochanteric bursitis, right hip (principal) | CPT/HCPCS: 99213 ==

== ENCOUNTER 2025-02-16 15:06 | Outpatient (CLI) | payer MEDICARE, SELFPAY ==
--- NOTE | 2025-02-16 15:30 | XR_ITS ---
WS: [id number] DEXA (DUAL ENERGY X-RAY ABSORPTIOMETRY) Bone mineral density was performed using a LAFASO machine. HISTORY: postmenopausal COMPARISON: None available. Left forearm BMD: 0.722 g/cm2. T score: -1.8 Z score: 0.1 Total hip BMD: Left: 0.737 g/cm2. T score: -2.1 Z score: -0.6 Right: 0.761 g/cm2. T score: -2.0 Z score: -0.4 10 year probability of a major osteoporotic fracture is 13.4%. XR/XR DEXA axial skeleton* [id number] IMPRESSION: OSTEOPENIA based upon the WHO classification for females.
== END 2025-02-16 15:07 | disposition home or self-care (01) ==
LOC: RAD 15:08
PROVIDERS: PCP Family Medicine; Visit Provider Family Medicine
DX: Z78.0 Asymptomatic menopausal state (principal); M85.80 Other specified disorders of bone density and structure, unspecified site
CPT/HCPCS: 77080

== ENCOUNTER → 2025-03-08 07:47 | Outpatient (BNVA) | payer MEDICARE, SELFPAY | PROVIDERS: PCP Family Medicine; Visit Provider Orthopaedic Surgery | DX: Z01.818 Encounter for other preprocedural examination (principal); T84.84XA Pain due to internal orthopedic prosthetic devices, implants and grafts, initial encounter; Z98.1 Arthrodesis status; Z98.890 Other specified postprocedural states | CPT/HCPCS: 99024; 99214 ==

== ENCOUNTER 2025-03-11 09:37 | Outpatient (CLI) | payer MEDICARE, SELFPAY ==
[2025-03-11 10:55] LABS: Add Urine Microscopic? NO
[2025-03-11 10:57] LABS: Hematocrit 38.2 % (36-47); Hemoglobin 12.40 g/dL (11.27-16.99); Mean Corpuscular HGB Conc 32.5 g/dL (30-55); Mean Corpuscular Hemoglobin 32.9 pg (27-33); Mean Corpuscular Volume 101.3 fl (85-98); Nucleated Red Blood Cells % 0 %; Platelet Count 263 10^3/cmm (157-399); Red Blood Count 3.77 10^6/uL (3.85-5.65); White Blood Count 5.90 10^3/uL (3.29-11.43)
[2025-03-11 10:59] LABS: Glucose Urine UA Negative (Normal); Nitrate Urine Negative (Negative); Specific Gravity, Urine 1.020 (1.005-1.030)
[2025-03-11 11:19] LABS: Alanine Aminotransferase 15 U/L (0-33); Albumin Level 4.3 g/dL (3.5-5.2); Alkaline Phosphatase 91 U/L (35-105); Anion Gap 15.0 (5-19); Aspartate Amino Transferase 24 U/L (0-32); Blood Urea Nitrogen 14 mg/dL (8-23); Calcium 9.3 mg/dL (8.5-10.5); Carbon Dioxide 26 mmol/L (22-29); Chloride 103 mmol/L (98-107); Globulin 2.5 g/dL (1.3-4.6); Glucose 86 mg/dL (65-115); Osmolality Calculated 290 mOsm/kg (285-295); Potassium 4.0 mmol/L (3.5-5.1); Sodium 140 mmol/L (136-145); Total Protein 6.8 g/dL (6.6-8.7)
[2025-03-11 11:21] LABS: Charge for UA Resulting for Rev
== END 2025-03-11 09:38 | disposition home or self-care (01) ==
PROVIDERS: PCP Family Medicine; Visit Provider Orthopaedic Surgery
DX: Z01.818 Encounter for other preprocedural examination (principal); Z11.4 Encounter for screening for human immunodeficiency virus [HIV]; Z11.59 Encounter for screening for other viral diseases
CPT/HCPCS: 36415; 80053; 81003; 85025; 86803; 87389

== ENCOUNTER 2025-04-04 16:55 | Inpatient (IN) | payer MEDICARE, SELFPAY ==
[2025-04-04] VITALS (85 sets, daily range): BP systolic 77–125; BP diastolic 40–92; PULSE 58–95; RESP 10–23; TEMP 36.2–36.3; O2SAT 86–100; BMI 24.5
--- NOTE | 2025-04-04 07:52 | ANES.PREANE2 ---
Pre-Anesthetic Assessment Height/Weight: Height 5 ft 4 in Weight 143 lb Pulse Resp BP Pulse Ox O2 Del Method 81 18 125/69 94 Room Air 04/04/25 07:09 04/04/25 07:09 04/04/25 07:09 04/04/25 07:09 04/04/25 07:09 Preop Diagnosis: Painful orthopedic hardware Operation Date: 04/04/25 08:30 Proposed Procedures p Hardware Removal Lumbar(Not Applicable) - Sadi Hernandez, DO Was Beta Yared taken within 24 hours: N/A Was Clonidine taken within 24 hours: N/A Last intake: Intake Last Liquid Date 04/03/25 Last Liquid Time 21:00 Last Solid Date 04/03/25 Last Solid Time 19:00 Exam alert, oriented x 3, clear to auscultation bilaterally and regular rate & rhythm Airway Submandibular: within normal limits Cervical ROM: within normal limits Mallampati: Class III Dentition: false Anesthetic Plan ASA status: 2 Anesthesia: General Other: No prior issues with anesthesia other than painful throat and difficulty swallowing for 2 days after her prior anesthetic NPO since yesterday evening Denies any cardiac or pulmonary issues GERD, controlled with Tums Patient had an episode of shingles to the right side of her face and forehead in October and has postherpetic neuralgia. Patient was on valacyclovir but has not taken it in the last few days Labs 03/11/2025 reviewed acceptable for procedure today Plan for GETA with video laryngoscopy Risk of > 500 ml blood loss (7ml/kg in children): Yes, adequate IV access and fluids planned Medications/Allergies Home Medications ?Medication ?Instructions ?Recorded ?Confirmed ?Last Taken ?Type xywczlieujau-gydaavkj-wlrrcjs-folic 1 tab PO QDAY 06/25/19 03/31/25 03/31/25 History acid 400 mcg-vit K1 20 mcg tablet (One-A-Day Women's 50 Plus) buspirone 5 mg tablet 5 mg PO BID PRN anxiety #60 tabs 01/06/25 03/31/25 04/04/25 Rx oxybutynin chloride 10 mg 10 mg PO DAILY #90 tabs 01/06/25 03/31/25 04/04/25 Rx tablet,extended release 24 hr escitalopram oxalate 10 mg tablet 10 mg PO DAILY #90 tabs 02/11/25 03/31/25 04/04/25 Rx (Lexapro) bupropion HCl 300 mg 24 hr tablet, 450 mg (1.5 x 300 mg) PO QAM #135 03/22/25 03/31/25 04/04/25 Rx extended release (Wellbutrin XL) tabs gabapentin 300 mg capsule 300 mg PO TID #90 caps 03/22/25 03/31/25 04/04/25 Rx ibuprofen 800 mg tablet 800 mg PO Q8H 03/31/25 04/04/25 Unknown History Allergies Allergy/AdvReac Type Severity Reaction Status Date / Time No Known Allergies Allergy Verified 03/30/25 11:25 Current Medications Generic Name Dose Route Start Last Admin Trade Name Freq PRN Reason Stop Dose Admin Sodium Chloride 1,000 mls @ 30 mls/hr 04/04/25 07:00 04/04/25 07:27 Sodium Chloride 0.9% IV 04/05/25 06:59 30 mls/hr .Q24H HARRIET Administration PFSH Anesthesia Medical History Overactive bladder Anxiety and depression Aftercare following surgery of the genitourinary system [place]-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 Tamez at [facility] H/O vaginal surgery Anterior colporrhaphy augmented with allograft. Single incision mid urethral sling preformed on 07/05/[address] Tamez at [facility] History of facelift H/O colonoscopy Hx of foot surgery bilateral Hx of hand surgery rt Status post abdominoplasty H/O vaginal surgery 07/05/2020-anterior colporrhaphy augmented with allograft and single incision mid urethral sling, performed by Dr. Tamez at [facility] S/P hysterectomy Family History Father , at age 54 CAD (coronary artery disease) Hypertension Stroke Mother , at age 87 Dementia Thyroid disease Brother Hyperlipidemia Heart disease Denies family history of Colon cancer Ovarian cancer Diabetes Breast cancer Anesthesia complication Bleeding disorder Uterine cancer Social History Smoking and tobacco/nicotine status: never used tobacco/nicotine Quit status (tobacco/nicotine): has quit using Year quit tobacco: 2006 Alcohol intake: current Alcohol intake frequency: 0-2 Drinks per Day Substance/Drug Use: never
[2025-04-04] MEDS: fentaNYL 50 mcg/mL INJ 2mL IVP ×3 (07:57→09:59)
[2025-04-04] MEDS: midazolam 1 mg/mL INJ 2 mL 2 MG IVP (08:00)
--- NOTE | 2025-04-04 08:01 | W.PM.OPSUD ---
Surgery/Procedure H&P Update DATE OF PROCEDURE: April 04, 2025 DATE H&P PERFORMED: 03/08/25 H&P UPDATE INFORMATION: I have reviewed H&P completed within last 30 days, I have examined patient prior to procedure and No changes to prior documentation PREOP DIAGNOSIS: Painful orthopedic hardware PLANNED PROCEDURE: Operation Date: 04/04/25 08:30 Proposed Procedures p Hardware Removal Lumbar(Not Applicable) - Sadi Hernandez DO
[2025-04-04] MEDS: ceFAZolin 2,000 mg SDV 2000 MG IVP (08:17)
[2025-04-04] MEDS: lidocaine-epi 1% 20 mL INJ INJECTION (08:41)
--- NOTE | 2025-04-04 09:22 | PM.OP ---
Operative Report Date of procedure: April 04, 2025 Pre-op diagnosis: Patient orthopedic hardware lumbar spine Post-op diagnosis: same Procedure done: Remove deep hardware from lumbar spine the L4-S1 screws bilaterally Surgeon: Sadi Hernandez DO Estimated blood loss (mL): 25 Procedure: Remove deep hardware from lumbar spine the L4-S1 screws bilaterally Patient was brought to the operative suite after undergoing anesthesia placed in the prone position. All areas of impingement were well-padded. Patient was prepped and draped normal sterile fashion. Skin incision is made over the midline using previous skin incision. And then a Wiltsie approach was then used bilaterally. The L4-S1 screws were identified caps removed rods were removed and screws were removed. This was done bilaterally. Wounds were irrigated this confirmed under C-arm guidance. Was closed in a layered fashion with 0 Vicryl 2-0 Vicryl and Monocryl suture. Sterile dressings were applied patient is transferred to the PACU in stable condition.
[2025-04-04] MEDS: HYDROmorphone 1 mg/mL INJ 1ml 0.5 MG IVP ×2 (10:13→10:22)
[2025-04-04] MEDS: acetaminophen 1,000 MG/100 ML PIGGYBACK 400 MG IV (11:06)
[2025-04-04] MEDS: ondansetron 2 mg/ML SDV 2 mL 4 MG IVP (12:45)
--- NOTE | 2025-04-04 12:48 | XR_ITS ---
WS: [id number] Lumbar spine, C-arm fluoroscopy views, 04/04/2025 Clinical Data: or pic, Comparison: Lumbar spine, 01/27/2025 Findings: Dr. Hernandez removed the pedicle screws and connecting rods from the posterior lumbar spine. XR/XR lumbar spine 1V [id number] Impression: Removal of pedicle screws and connecting rods from the lumbar spine.
--- NOTE | 2025-04-04 15:49 | ANE.PACU2 ---
Inpatient post-anesthesia follow up: Airway intact: Yes Vital signs: Temperature 97.3 F Pulse Rate 84 Respiratory Rate 16 Blood Pressure 94/64 Pulse Oximetry 95 Oxygen Delivery Me thod Nasal Cannula Oxygen Flow Rate 1 Fraction of Inspir ed Oxygen Hydration adequate: Yes Nausea and vomiting: No Pain level: 2 Additional Comments: Patient requiring 1-2 L of O2 in phase 2. We have watched patient for hours and anytime we take oxygen off she drops to 86-87% SpO2. Spoke with Dr. Dominguez and hospitalist, decision was made to admit patient for observation.
--- NOTE | 2025-04-04 16:40 | XRR_ITS ---
PROCEDURE INFORMATION: Exam: XR Chest Exam date and time: 04/04/2025 5:56 PM Age: 69 years old Clinical indication: Shortness of breath; Additional info: SOB TECHNIQUE: Imaging protocol: Radiologic exam of the chest. Views: 1 view. COMPARISON: MR cervical spin wo con* [id number] 06/05/2022 9:58 AM FINDINGS: Lungs: Chronic granulomatous changes and bibasilar scarring. No acute consolidation or overt pulmonary edema is visualized. Pleural spaces: No significant pleural effusion. No pneumothorax. Heart/Mediastinum: Heart size upper normal. Bones/joints: No acute findings. XR/XR chest 1V portable [id number] IMPRESSION: Chronic changes and bibasilar scarring with no acute findings.
[2025-04-04] MEDS: albumin 25 G/100 ML BAG 60 G IV ×2 (16:47→22:28)
--- NOTE | 2025-04-04 17:37 | ECG_ITS ---
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 Measurements Intervals [place] Rate: 68 P: 41 SD: 211 QRS: -48 QRSD: 97 T: 9 QT: 390 QTc: 417 Interpretive Statements SINUS RHYTHM WITH SINUS ARRHYTHMIA WITH FIRST DEGREE AV BLOCK LEFT ANTERIOR FASCICULAR BLOCK [QRS AXIS <= -45, QR IN I, RS IN II] Compared to ECG 10/29/2024 09:55:03 First degree AV block now present Electronically Signed On 04-05-2025 22:05:15 FAREBOX REPAIRER by Lazarus Dowd M.D. [id number]
--- NOTE | 2025-04-04 18:07 | PM.CONSULT ---
Providers/Reason For Consult Consulting Physician/Specialty*: Orthopedic Reason for Consult*: Postoperative hypotension Attending Physician: Sadi Hernandez DO Primary Care Provider: Loly De Santiago DO History of Present Illness History of Present Illness Sarahi Anton is a 69 year old female who presents to [facility] for removal of deep hardware of her lumbar spine L4/S1 screws bilaterally, patient was seen in postop recovery, with soft blood pressures, requiring 1 L. Currently patient is alert oriented x 3, follow commands, no lightheadedness, dizziness, chest pain, palpitations, no shortness of breath, no no cardiovascular history, history of smoking and history of COPD no history of asthma, no history of sleep apnea or coronary, no cough, recent illness, flank pain, dysuria no abdominal pain no diarrhea, Review of Systems Card: Denies: chest pain Resp: Denies: dyspnea Medications/Allergies Home Medications ?Medication ?Instructions ?Recorded ?Confirmed ?Last Taken ?Type mruzaicwsnog-acwntaxx-vvxwbzn-folic 1 tab PO QDAY 06/25/19 03/31/25 03/31/25 History acid 400 mcg-vit K1 20 mcg tablet (One-A-Day Women's 50 Plus) buspirone 5 mg tablet 5 mg PO BID PRN anxiety #60 tabs 01/06/25 03/31/25 04/04/25 Rx oxybutynin chloride 10 mg 10 mg PO DAILY #90 tabs 01/06/25 03/31/25 04/04/25 Rx tablet,extended release 24 hr escitalopram oxalate 10 mg tablet 10 mg PO DAILY #90 tabs 02/11/25 03/31/25 04/04/25 Rx (Lexapro) bupropion HCl 300 mg 24 hr tablet, 450 mg (1.5 x 300 mg) PO QAM #135 03/22/25 03/31/25 04/04/25 Rx extended release (Wellbutrin XL) tabs gabapentin 300 mg capsule 300 mg PO TID #90 caps 03/22/25 03/31/25 04/04/25 Rx ibuprofen 800 mg tablet 800 mg PO Q8H 03/31/25 04/04/25 Unknown History Held on 04/04/25. Instructions: Resume on 04/06/25. acyclovir 800 mg tablet 800 mg PO TID 7 days #21 tabs 04/04/25 Unknown Rx hydrocodone 5 mg-acetaminophen 325 1 - 2 tab PO .Q4-6H #40 tabs 04/04/25 Unknown Rx mg tablet Allergies Allergy/AdvReac Type Severity Reaction Status Date / Time No Known Allergies Allergy Verified 03/30/25 11:25 Current Medications Generic Name Dose Route Start Last Admin Trade Name Freq PRN Reason Stop Dose Admin Fentanyl 50 mcg 04/04/25 06:55 04/04/25 07:57 Fentanyl 50 Mcg/Ml Inj 2ml IVP 50 mcg Q10M PRN Administration Preop Pain Hydromorphone HCl 0.5 mg 04/04/25 09:38 04/04/25 10:22 Hydromorphone 1 Mg/Ml Inj 1ml IVP 04/05/25 09:38 0.5 mg Q10M PRN Administration Pain level 7-10 PACU Phase I Sodium Chloride 1,000 mls @ 30 mls/hr 04/04/25 07:00 04/04/25 15:47 Sodium Chloride 0.9% IV 04/05/25 06:59 Infused .Q24H HARRIET Infusion Sodium Chloride 1,000 mls @ 100 mls/hr 04/04/25 16:30 04/04/25 16:28 Sodium Chloride 0.9% IV 100 mls/hr .Q10H HARRIET Administration Midazolam HCl 2 mg 04/04/25 06:55 04/04/25 08:00 Midazolam 1 Mg/Ml Inj 2 Ml IVP 1 mg Q5M PRN Administration Preop Anxiety Ondansetron HCl 4 mg 04/04/25 09:38 04/04/25 12:45 Ondansetron 2 Mg/Ml Sdv 2 Ml IVP 4 mg Q15M PRN Administration Nausea/Vomiting PACU PHASE II PFSH Acute PFSH: Medical History Overactive bladder Anxiety and depression Aftercare following surgery of the genitourinary system [place]-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 Tamez at [facility] H/O vaginal surgery Anterior colporrhaphy augmented with allograft. Single incision mid urethral sling preformed on 07/05/[address] Tamez at [facility] History of facelift H/O colonoscopy Hx of foot surgery bilateral Hx of hand surgery rt Status post abdominoplasty H/O vaginal surgery 07/05/2020-anterior colporrhaphy augmented with allograft and single incision mid urethral sling, performed by Dr. Tamez at [facility] S/P hysterectomy Family History Father , at age 54 CAD (coronary artery disease) Hypertension Stroke Mother , at age 87 Dementia Thyroid disease Brother Hyperlipidemia Heart disease Denies family history of Colon cancer Ovarian cancer Diabetes Breast cancer Anesthesia complication Bleeding disorder Uterine cancer Social History Smoking and tobacco/nicotine status: never used tobacco/nicotine Quit status (tobacco/nicotine): has quit using Year quit tobacco: 2006 Alcohol intake: current Alcohol intake frequency: 0-2 Drinks per Day Substance/Drug Use: never Vitals/I&O/Wt Last Vital Signs Temp 97.3 F L 04/04/25 12:35 Pulse 79 04/04/25 17:34 Resp 16 04/04/25 17:34 BP 102/58 04/04/25 17:34 Pulse Ox 96 04/04/25 17:34 O2 Del Method Nasal Cannula 04/04/25 17:34 O2 Flow Rate 1 04/04/25 17:34 04/04/25 04/04/25 04/04/25 06:59 14:59 22:59 Intake Total 200 / 200 1000 / 1200 Output Total Balance 175 / 175 1000 / 1175 Weight last 48 hrs Weight 64.864 kg Physical Exam Const: COMMON NORMALS: no acute distress and patient oriented x3 HENMT: COMMON NORMALS: normocephalic HEAD & SCALP: normocephalic Eye: COMMON NORMALS: Equal, round and reactive pupils present PUPIL: Yes Equal, round and reactive pupils present Resp: COMMON NORMALS: normal respiratory effort, No retractions, No use of accessory muscles and clear to auscultation bilaterally AUSCULTATION: clear to auscultation bilaterally Cardio: COMMON NORMALS: regular rate, regular rhythm, S1 normal heart sound present and S2 normal heart sound present RATE: regular rate RHYTHM: regular rhythm HEART SOUNDS: S1 normal heart sound present and S2 normal heart sound present GI: COMMON NORMALS: Normal to inspection, nondistended, normoactive bowel sounds present and non-tender Extremity: COMMON NORMALS: no calf tenderness and no pedal edema Neuro: COMMON NORMALS: patient oriented x3 Psych: COMMON NORMALS: mental status grossly normal A&P Assessment and plan 1. Postoperative hypotension: 2. Postoperative hypoxia: Plan: Postoperative hypotension - Likely anesthetic effect - Give fluids, albumin - Monitor blood pressure closely - CBC, CMP, lactic acid Postoperative hypoxia requiring 1 L - incentive spirometer, flutter valve, PT OT chest x-ray Full code fluid removed PDMP PDMP Reviewed: Not Reviewed Consult Attestations Medical Necessity Statement: Patient requires hospitalization for upper hypotension, postoperative hypoxia Diagnoses Postoperative hypotension I95.81 Postoperative hypoxia R09.02; Z98.890
--- NOTE | 2025-04-04 18:20 | SUR.EXTENDED ---
Addendum entered by Linda Kevin RN 04/04/25 18:22: Report given to Heraclio JEREZ ICU Original Note: Report given to rocky in ICU at 8598. Patient taken to ICU5. Patient awake and aware, O2 nasal cannula with sats at 98 on 1L, dressing to surgical site dry and intact.
--- NOTE | 2025-04-04 18:42 | ECG_ITS ---
[employer] Test Date: 2025-04-04 Pat Name: Sarahi Anton Department: Room: [facility] Gender: Female Transplant Rn: : 1955 Requested By: Domingo Keane Order Number: [id number] Reading MD: Lazarus Dowd M.D. Measurements Intervals [place] Rate: 76 P: 38 SD: 212 QRS: -44 QRSD: 99 T: -3 QT: 381 QTc: 430 Interpretive Statements SINUS RHYTHM WITH FIRST DEGREE AV BLOCK LEFT AXIS DEVIATION [QRS AXIS < -30] LOW QRS VOLTAGE IN PRECORDIAL LEADS [QRS DEFLECTION < 1.0 mV IN CHEST LEADS] PATTERN CONSISTENT WITH PULMONARY DISEASE Compared to ECG 04/04/2025 17:37:05 Left-axis deviation now present Low QRS voltage now present Sinus arrhythmia no longer present Left anterior fascicular block no longer present Electronically Signed On 04-05-2025 22:23:38 NIGHT SUPERVISOR by Lazarus Dowd M.D. [id number]
--- NOTE | 2025-04-04 18:54 | ECG_ITS ---
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 Measurements Intervals [place] Rate: 72 P: 26 VT: 191 QRS: -38 QRSD: 95 T: -1 QT: 386 QTc: 423 Interpretive Statements SINUS RHYTHM WITH SINUS ARRHYTHMIA LEFT AXIS DEVIATION [QRS AXIS < -30] PATTERN CONSISTENT WITH PULMONARY DISEASE Compared to ECG 04/04/2025 18:18:25 First degree AV block no longer present Electronically Signed On 04-05-2025 22:23:28 AIR CONDITIONING TECHNICIAN by Lazarus Dowd M.D. [email or web address]
[2025-04-04] MEDS: morphine 4 mg/mL SDV 1 mL 1 MG IVP ×2 (19:22→22:27)
[2025-04-04] MEDS: HYDROcodone-acetaminophen 5-325 mg Tablet 1 TAB PO (19:22)
[2025-04-04 23:00] LABS: Hematocrit 32.1 % (36-47); Hemoglobin 10.10 g/dL (11.27-16.99); Mean Corpuscular HGB Conc 31.5 g/dL (30-55); Mean Corpuscular Hemoglobin 32.6 pg (27-33); Mean Corpuscular Volume 103.5 fl (85-98); Nucleated Red Blood Cells % 0 %; Platelet Count 180 10^3/cmm (157-399); Red Blood Count 3.10 10^6/uL (3.85-5.65); White Blood Count 6.43 10^3/uL (3.29-11.43)
[2025-04-04 23:14] LABS: Lactic Sepsis W/Reflex 0.8 mmol/L (0.5-2.2)
[2025-04-04 23:23] LABS: Troponin(5th) Baseline 18 ng/L (0-10)
[2025-04-04 23:32] LABS: Alanine Aminotransferase 14 U/L (0-33); Albumin Level 3.9 g/dL (3.5-5.2); Alkaline Phosphatase 61 U/L (35-105); Anion Gap 11.0 (5-19); Aspartate Amino Transferase 24 U/L (0-32); Blood Urea Nitrogen 12 mg/dL (8-23); Calcium 7.8 mg/dL (8.5-10.5); Carbon Dioxide 23 mmol/L (22-29); Chloride 110 mmol/L (98-107); Creatinine Clr Calc Pharmacy 62.5593; Globulin 1.4 g/dL (1.3-4.6); Glucose 110 mg/dL (65-115); NT Pro B Type Natriuretic Pept 304 pg/mL (0-125); Osmolality Calculated 290 mOsm/kg (285-295); Potassium 4.0 mmol/L (3.5-5.1); Sodium 140 mmol/L (136-145); Total Protein 5.3 g/dL (6.6-8.7)
[2025-04-05] VITALS (61 sets, daily range): BP systolic 80–145; BP diastolic 50–89; PULSE 66–90; RESP 13–26; TEMP 36.8–37.4; O2SAT 85–98
[2025-04-05 01:25] LABS: Troponin 5 2HR 15.11 ng/L (0-10)
[2025-04-05 01:27] LABS: Troponin 5 2HR Delta -2.89 ABS# (0-10)
[2025-04-05] MEDS: morphine 4 mg/mL SDV 1 mL 1 MG IVP ×5 (01:38→22:58)
[2025-04-05] MEDS: HYDROcodone-acetaminophen 5-325 mg Tablet 1 TAB PO ×5 (01:40→22:10)
[2025-04-05 02:49] LABS: Glucose Urine UA Negative (Normal); Nitrate Urine Negative (Negative); Specific Gravity, Urine 1.015 (1.005-1.030)
[2025-04-05 02:53] LABS: Add Urine Microscopic? YES
[2025-04-05 06:14] LABS: Troponin 5 6HR 19.79 ng/L (0-10); Troponin 5 6HR Delta 1.79 ng/L (0-12)
[2025-04-05] MEDS: albumin 25 G/100 ML BAG 60 G IV ×3 (06:32→22:11)
--- NOTE | 2025-04-05 07:58 | P.DS_ITS ---
Discharge Providers Date of Admission: 04/04/25 16:55 Date of Discharge: April 05, 2025 Attending Provider at Admission: Domingo Keane MD Attending Provider at Discharge: Sadi Hernandez DO Primary Care Provider: Loly De Santiago DO Diagnoses at Discharge Discharge Diagnosis 1. Postoperative hypotension: 2. Postoperative hypoxia: Reason for Visit Reason for Visit: T84.84XA Physical Exam Narrative: Patient complaining more about her pain in her face. Blood pressure was 103/80 Discharge Data Studies Completed and Pending Completed Studies During Hospitalization Category Date Time Status XR chest 1V portable [id number] Routine Exams 04/04/25 16:40 Completed XR lumbar spine 1V [id number] Routine Exams 04/04/25 12:48 Completed Radiology Impressions Lumbar Spine X-Ray 04/04/25 12:48 Impression: Removal of pedicle screws and connecting rods from the lumbar spine. Chest X-Ray 04/04/25 16:40 IMPRESSION: Chronic changes and bibasilar scarring with no acute findings. Laboratory Results WBC 6.43 10^3/uL (3.29-11.43) 04/04/25 22:50 RBC 3.10 10^6/uL (3.85-5.65) L 04/04/25 22:50 Hgb 10.10 g/dL (11.27-16.99) L 04/04/25 22:50 Hct 32.1 % (36-47) L 04/04/25 22:50 MCV 103.5 fl (85-98) H 04/04/25 22:50 MCH 32.6 pg (27-33) 04/04/25 22:50 MCHC 31.5 g/dL (30-55) 04/04/25 22:50 RDW 13.3 % (12.1-15.1) 04/04/25 22:50 Plt Count 180 10^3/cmm (157-399) 04/04/25 22:50 MPV 9.3 fL (7.4-10.4) 04/04/25 22:50 Neut % (Auto) 74.9 % 04/04/25 22:50 Lymph % (Auto) 16.0 % 04/04/25 22:50 [place] % (Auto) 8.4 % 04/04/25 22:50 Eos % (Auto) 0.2 % 04/04/25 22:50 Baso % (Auto) 0.2 % 04/04/25 22:50 Neut # (Auto) 4.82 10^3/uL (1.8-7.7) 04/04/25 22:50 Lymph # (Auto) 1.0 10^3/uL (0.8-4.8) 04/04/25 22:50 [place] # (Auto) 0.5 10^3/uL (0.2-0.9) 04/04/25 22:50 Eos # (Auto) 0.0 10^3/uL (0.0-0.8) 04/04/25 22:50 Baso # (Auto) 0.0 10^3/uL (0.0-0.1) 04/04/25 22:50 Nucleated RBC % (auto) 0 % 04/04/25 22:50 Nucleated RBCs # 0.0 /100WBC 04/04/25 22:50 Sodium 140 mmol/L (136-145) 04/04/25 22:50 Potassium 4.0 mmol/L (3.5-5.1) 04/04/25 22:50 Chloride 110 mmol/L (98-107) H 04/04/25 22:50 Carbon Dioxide 23 mmol/L (22-29) 04/04/25 22:50 Anion Gap 11.0 (5-19) 04/04/25 22:50 BUN 12 mg/dL (8-23) 04/04/25 22:50 Creatinine 0.7 mg/dL (0.5-0.9) 04/04/25 22:50 GFR Calculation 82.7 mL/min (90-130) L 04/04/25 22:50 Glucose 110 mg/dL (65-115) 04/04/25 22:50 POC Glucose 114 mg/dL (70-110) H 04/04/25 18:02 Calculated Osmolality 290 mOsm/kg (285-295) 04/04/25 22:50 Lactic Acid 0.8 mmol/L (0.5-2.2) 04/04/25 22:50 Calcium 7.8 mg/dL (8.5-10.5) L 04/04/25 22:50 Total Bilirubin 0.3 mg/dL (0.15-1.2) 04/04/25 22:50 AST 24 U/L (0-32) 04/04/25 22:50 ALT 14 U/L (0-33) 04/04/25 22:50 Alkaline Phosphatase 61 U/L (35-105) 04/04/25 22:50 Troponin T Baseline 18 ng/L (0-10) H 04/04/25 22:50 Troponin T 120 Minute 15.11 ng/L (0-10) H 04/05/25 00:59 Delta Troponin T -2.89 ABS# (0-10) L 04/05/25 00:59 Troponin T Hi Sens 6Hr 19.79 ng/L (0-10) H 04/05/25 05:01 Troponin T Hi Sens 6Hr Delta 1.79 ng/L (0-12) 04/05/25 05:01 C-Reactive Protein 11.7 mg/L (0.0-4.9) H 04/04/25 22:50 NT-Pro-B Natriuret Pep 304 pg/mL (0-125) H 04/04/25 22:50 Total Protein 5.3 g/dL (6.6-8.7) L 04/04/25 22:50 Albumin 3.9 g/dL (3.5-5.2) 04/04/25 22:50 Globulin 1.4 g/dL (1.3-4.6) 04/04/25 22:50 Urine Color Yellow (Yellow) 04/05/25 02:30 Urine Appearance Clear (CLEAR) 04/05/25 02:30 Urine pH 7.0 (5-7) 04/05/25 02:30 Ur Specific [place] 1.015 (1.005-1.030) 04/05/25 02:30 Urine Protein Negative (Negative) 04/05/25 02:30 Urine Glucose (UA) Negative (Normal) 04/05/25 02:30 Urine Ketones Trace (Negative) 04/05/25 02:30 Urine Blood Negative (Negative) 04/05/25 02:30 Urine Nitrate Negative (Negative) 04/05/25 02:30 Urine Bilirubin Negative (Negative) 04/05/25 02:30 Urine Urobilinogen 0.2 mg/dL (Negative) 04/05/25 02:30 Ur Leukocyte Esterase Negative (Negative) 04/05/25 02:30 Urine RBC 3-5 /hpf (0-2) 04/05/25 02:30 Urine WBC 0-5 /hpf (0-5) 04/05/25 02:30 Ur Squamous Epith Cells 0-5 /hpf (0-5) 04/05/25 02:30 Amorphous Sediment Not Reportable 04/05/25 02:30 Urine Bacteria None seen /hpf (NONE) 04/05/25 02:30 Hyaline Casts 0.40 /lpf 04/05/25 02:30 Vitals Last Vital Signs Temp 98.2 F 04/05/25 04:00 Pulse 78 04/05/25 07:30 Resp 17 04/05/25 07:30 BP 102/61 04/05/25 07:30 Pulse Ox 97 04/05/25 07:30 O2 Del Method Nasal Cannula 04/05/25 04:15 O2 Flow Rate 2 04/05/25 04:15 Discharge Plan Discharge Patient Disposition: Home Condition: Stable Prescriptions: New acyclovir 800 mg tablet 800 mg PO TID 7 Days Qty: 21 0RF hydrocodone-acetaminophen 5-325 mg tablet 1 - 2 tab PO .Q4-6H Qty: 40 0RF Continued One-A-Day Women's 50 Plus 400-20 mcg tablet 1 tab PO QDAY buspirone 5 mg tablet 5 mg PO BID PRN (Reason: anxiety) Qty: 60 0RF oxybutynin chloride 10 mg tablet extended release 24hr 10 mg PO DAILY Qty: 90 1RF escitalopram oxalate [Lexapro] 10 mg tablet 10 mg PO DAILY Qty: 90 0RF gabapentin 300 mg capsule 300 mg PO TID Qty: 90 0RF bupropion HCl [Wellbutrin XL] 300 mg tablet extended release 24 hr 450 mg PO QAM Qty: 135 0RF Held ibuprofen 800 mg tablet 800 mg PO Q8H Hold Instructions: Resume on 04/06/25. Rx Instructions: TAKE 1 TABLET BY MOUTH EVERY 8 HOURS NEEDED FOR PAIN Discharge Order = DC NOW: Discharge Order (Routine); Ordered 04/04/25 Ordered By: Sadi Hernandez Referrals: Sadi Hernandez, [Physician, Orthopedics] Referral Note: Call Dr. Hernandez's clinic and make a follow-up appointment to be seen in 2 weeks. Discharge Diet: Advance as tolerated Discharge Activity: Limit activity as instructed Patient Instructions: Acute Wound Care (DC), Post Anesthesia Care Activity Restrictions/Additional Instructions: Thank you for choosing [facility] for your care! The following is a list of instructions, from your provider, to follow upon your discharge to ensure you have the optimal recovery from your recent injury or surgery. Follow-up care is a anton part of your treatment and safety. Be sure to make and go to all appointments, and call your doctor if you are having problems. If you do not already have a follow-up appointment made, call Dr. Hernandez's office in the next 1-3 days to make follow up appointment for 2 weeks at [phone]. It is also a good idea to know your test results and keep a list of the medicines you take. Medications will be prescribed for you at your provider?s discretion. These medications are to be used as instructed;if they are taken more often that presc ribed they will not be refilled early and in most cases will not be refilled at all. > When a refill is needed,you should contact our office 2-3 business days beforeyour prescription runs out. Medications will NOTbe refilled by passenger relations representative providers after hours! > Many pain medications contain Tylenol (Acetaminophen). Do not consume more than 4,000 mg of Tylenol per day in total with any combination of medications. > Pain medications can cause constipation. Please use an over the counter stool softener as directed, while taking pain medications. Consult your local pharmacist with questions or recommendations on stool softeners. If constipation persists, contact our office or your primary care provider. > While under our care,you are not to receive pain medications or other controlled substances from any other provider unless our office is notified and approves. Any attempts to do so will result in refusal to prescribe any further pain medications and possible dismissal from our practice. ? Your wound and/or dressing should remain clean and dry for 2 days after surgery. On postoperative day 2 (48 hours after your surgery) the dressing (if present) should be removed and it is okay to shower and get the incision wet. Pat dry afterwards. No further dressing should be required from that point on. Do not put any creams or ointments on the incision > It is normal for there to be a small amount of discharge (bloody or blood tinged) present from a surgical wound for the first 1-3days. > The wound should be examined twice a day for signs of infection. Mild redness or bruising is to be expected but indications that an infection maybe starting would include;An increase in redness, swelling, or discharge, a foul odor present around the incision, and/or a fever greater than 101 ?F ? Showering is permitted, however we ask that you do not take a bath, sit in a whirlpool / Jacuzzi, or go swimming for 1 month. For only the first 2 days after surgery, lt wilt be necessary for you to cover your wound/dressing with plastic and tape to keep it dry. ? Walking is essential for the healing process after surgery. We would like you to slowly advance your walking. This should be done on relatively flat clear ground (inside or out) or can be done on a treadmill. Remember this goal does not have to happen all at once, slowly increase your distance and duration. This can be broken into more more than one walk per day as tolerated. Patients who walk as directed after surgery rarely require Physical Therapy. In the unlikely event this issue arises your provider will direct hospital staff to make the appropriate arrangements. ? No lifting over 5 pounds {a gallon of milk) or bending/twisting until further notice. Each of these activities places an unnecessary amount of stress onto the body and can impede the delicate healing process. > Instead of bending at the waist, keep your back straight and bend at the knees. > Instead of twisting your torso, keep your back straight and turn your entire body with your feet. ? You may sleep in any position which makes you comfortable.Many patients find comfort sleeping in a reclining chair. It is not abnormal to have difficulty sleeping for the first several weeks following your surgery. We recommend trying Benadryl or Tylenol PM as directed to help with your sleeping difficulties. Both medications are over the counter and available without prescription. ? NO SMOKING!!!Smoking dramatically increases the probability of developing postoperative wound infections. ? Common complaints after lumbar and/or thoracic spine surgery include, but are not limited to: numbness and/or tingling in the legs, pain around the incision and surrounding tissues, muscle spasms, or stiffness of the middle to low back. Contact our office if these symptoms persist or if an acute change occurs. ? No driving for the first 3-5 days, and not while taking narcotics until seen at your follow-up appointment and cleared.There are no restrictions for riding on short trips, however if you take a longer trip, arrangements should be made to make regular stops to get out of the vehicle and stretch . ? Swelling is an unfortunate event that will take place with any surgery and is the primary source of your postoperative discomfort. While walking and regular approved activities helps control inflammation, there are additional steps you can take to minimize swelling. > Place ice over the surgical site and surrounding tissue for twenty minutes, followed by applying a low/medium heat (heating pad) for an additional twenty minutes every 1-2 hours as needed for pain relief. > You may use of over the counter anti-inflammatory medications (Ibuprofen, Motrin, Aleve, Advil, etc) as directed on the package label. These types of medicines will significantly reduce the amount of discomfort you experience after surgery from swelling. It should be noted that if you have an allergy to any of these medications, or a history of ulcers or kidney disease you should consult your primary care provider prior to starting these medications. Discharge Attestations Time Spent in Discharge Care*: less than 30 min Quality Metrics Clinical Quality Measures [ No reported AMI, CVA or VTE this stay] Coding Level of Care Code Acute Code for g Fwd Diagnoses Postoperative hypotension I95.81 Postoperative hypoxia R09.02; Z98.890
--- NOTE | 2025-04-05 08:07 | CT_ITS ---
WS: [id number] CTA OF THE CHEST WITH PULMONARY EMBOLISM PROTOCOL TECHNIQUE: High-resolution contrast enhanced CTA of the chest with coronal and sagittal reformatted images with pulmonary embolism protocol. MIP images are also reviewed. CLINICAL INFORMATION: sob COMPARISON: None. DLP: 350.[address] scans at [facility] use at least one of these dose optimization techniques: automated exposure control; mA and/or kV adjustment per patient size (includes targeted exams where dose is matched to clinical indication); or iterative reconstruction. FINDINGS: Filling defects compatible with acute pulmonary embolus in the distal RIGHT main pulmonary artery extending into the segmental and subsegmental pulmonary arteries worse in the RIGHT middle lobe and RIGHT upper lobe. Evidence of mild RIGHT heart strain. Recommend correlation with echocardiography. Subsegmental atelectasis in the lung bases. Aortic calcification. Small esophageal hiatal hernia. Splenic artery calcification. Moderate thoracic kyphosis. Partially visualized hepatic cyst measuring 3.[address]/CT angio chest PE protcl [id number] IMPRESSION: 1. Acute pulmonary embolus involving the RIGHT distal main pulmonary artery ex tending to the segmental and subsegmental pulmonary arteries worse in the RIGHT middle lobe and RIGHT upper lobe. Normal LEFT main pulmonary artery. 2. Evidence of mild RIGHT heart strain. Recommend correlation with echocardiog terence. 3. Subsegmental atelectasis in the lung bases. 4. Small esophageal hernia. Notified Domingo Keane MD at 04/05/2025 9:41 AM.
--- NOTE | 2025-04-05 08:51 | PC.NURSE ---
Dr. Lakhwinder soto discussing POC, received orders for Gabapentin 300mg TID, and a regular diet. Orders placed.
[2025-04-05 09:03] LABS: Hematocrit 29.2 % (36-47); Hemoglobin 9.30 g/dL (11.27-16.99); Mean Corpuscular HGB Conc 31.8 g/dL (30-55); Mean Corpuscular Hemoglobin 33.0 pg (27-33); Mean Corpuscular Volume 103.5 fl (85-98); Nucleated Red Blood Cells % 0 %; Platelet Count 152 10^3/cmm (157-399); Red Blood Count 2.82 10^6/uL (3.85-5.65); White Blood Count 5.88 10^3/uL (3.29-11.43)
[2025-04-05] MEDS: iohexol 350 mg/mL 500 mL Btl (per mL) IV (09:09)
[2025-04-05 09:29] LABS: Alanine Aminotransferase 10 U/L (0-33); Albumin Level 4.0 g/dL (3.5-5.2); Alkaline Phosphatase 51 U/L (35-105); Anion Gap 14.9 (5-19); Aspartate Amino Transferase 22 U/L (0-32); Blood Urea Nitrogen 9 mg/dL (8-23); Calcium 8.0 mg/dL (8.5-10.5); Carbon Dioxide 21 mmol/L (22-29); Chloride 108 mmol/L (98-107); Creatinine Clr Calc Pharmacy 63.0469; Globulin 1.8 g/dL (1.3-4.6); Glucose 101 mg/dL (65-115); Osmolality Calculated 289 mOsm/kg (285-295); Potassium 3.9 mmol/L (3.5-5.1); Sodium 140 mmol/L (136-145); Thyroid Stimulating Hormone 0.83 uIU/mL (0.27-4.20); Total Protein 5.8 g/dL (6.6-8.7)
--- NOTE | 2025-04-05 09:41 | USCV_ITS ---
Sarahi Anton Age: 69 Gender: F : 1955 Exam Date: 04/05/2025 11:13 Ordering Phys: Domingo Keane MD Technologist: GABRIEL Exam Location: [facility] [place] Indication: SoB BP: 100 / 64 HR: 76 Rhythm: Sinus Technical Quality: Adequate MEASUREMENTS (Male / Female) Normal Values 2D ECHO LV Diastolic Diameter PLAX 5.0 cm 4.2 - 5.9 / 3.9 - 5.3 cm IVS Diastolic Thickness 0.9 cm 0.6 - 1.0 / 0.6 - 0.9 cm IVS Systolic Thickness 1.0 cm LVPW Diastolic Thickness 0.8 cm 0.6 - 1.0 / 0.6 - 0.9 cm LVPW Systolic Thickness 1.1 cm LVOT Diameter 2.5 cm LV Ejection Fraction 2D Teich 60.4 % LV Ejection Fraction MOD 4C 57.3 % LV Ejection Fraction MOD 2C 64.0 % LV Ejection Fraction 2C AL 63.3 % LA Diameter 3.0 cm RA Systolic Volume 4C AL 62.2 ml RA Systolic Volume 4C MOD 58.0 ml LA Sys Volume AL 46.1 cm cubed LA Sys Volume Index AL 25.6 cm cubed/m squared Aorta at Sinotubular Diameter 2.9 cm M-MODE LA Ao Ratio MM 1.2 AV Cusp Separation MM 1.5 cm DOPPLER AV Peak Velocity 176.0 cm/s LVOT Peak Velocity 103.0 cm/s AV Area Cont Eq vti 3.5 cm squared AV Area Cont Eq pk 3.0 cm squared MV Peak Velocity 106.0 cm/s MV Area PHT 5.5 cm squared Mitral E to A Ratio 0.9 TR Peak Velocity 215.0 cm/s TR Peak Gradient 18.5 mmHg TV Peak E Velocity 111.0 cm/s PV Peak Velocity 127.0 cm/s FINDINGS Left Ventricle Normal left ventricular size and systolic function, EF 64%. No regional wall motion abnormalities. Right Ventricle Normal right ventricular size and systolic function. Right Atrium Normal right atrial size. Left Atrium Normal left atrial size. IA Septum Normal appearance of the interatrial septum. Mitral Valve Mild mitral valve regurgitation. Aortic Valve Trace aortic valve regurgitation. Thickened aortic valve. Tricuspid Valve No gross abnormalities noted Pulmonic Valve No gross abnormalities noted Pericardium No pericardial effusion. Aorta Normal aortic annulus size. IVC Inferior vena cava not visualized. CONCLUSIONS Normal left ventricular size and systolic function, EF 64%. No regional wall motion abnormalities. Normal appearance of the interatrial septum. Trace aortic valve regurgitation. Thickened aortic valve. There is no pericardial effusion. There are no intracardiac masses. No similar previous studies are available for comparison Dr Lazarus Dowd MD FAC (Electronically Signed) Final Date: 05 April 2025 17:57 S
[2025-04-05] MEDS: heparin drip 25,000 UNIT/500 ML PREMIX 20 UNIT IV (10:00)
[2025-04-05] MEDS: heparin 5,000 unit/mL INJ 1 mL IVP (10:01)
[2025-04-05] MEDS: pantoprazole 40 mg SDV IVP ×2 (10:07→20:47)
--- NOTE | 2025-04-05 10:28 | PC.NURSE ---
Dr. Keane rounding discussing POC, received Dilaudid order for IVP 0.5mg q6 hr for pain, see mar, orders placed.
[2025-04-05] MEDS: HYDROmorphone 0.5 MG/0.5 ML INJ IVP ×3 (10:41→21:25)
--- NOTE | 2025-04-05 12:47 | USCV_ITS ---
Sarahi Anton Age: 69 Gender: F : 1955 Exam Date: 04/05/2025 14:23 Ordering Phys: Domingo Keane MD Technologist: GABRIEL Exam Location: [facility] [place] Indication: Swelling HISTORY: Lower extremity swelling. PROCEDURES: Venous duplex imaging was performed in bilateral lower extremities. The following venous structures were evaluated: common femoral vein, profunda vein, proximal portion of the greater saphenous vein, superficial femoral vein, and the popliteal vein. In addition, the posterior tibial and peroneal trunk were evaluated. Serial compression, augmentation maneuvers, and spectral Doppler flow evaluation were performed. FINDINGS: No evidence of DVT seen in any vessel visualized at this time. CONCLUSIONS No evidence of right lower extremity DVT. No evidence of left lower extremity DVT. Manuel Castorena MD (Electronically Signed) Final Date: 05 April 2025 15:52 S
--- NOTE | 2025-04-05 15:08 | P.PN_ITS ---
Subjective 2 Subjective: - Patient was seen this morning, blood p ressures remain soft, MAP around 65, does report intermittent shortness of breath, she is on and off 2 L, discussed ordering CT angiogram the chest - CT angiogram the chest shows right-paula ed pulmonary embolism, started on heparin drip - Discussed with patient, family at beds micky about her right sided pulmonary emboli, with right heart strain likely etiology behind her hypoxia/shock, discussed cardiac echo, venous ultrasound continue heparin drip monitoring hemodynamics closely Vitals/I&O/Wt Last Vital Signs Temp 98.2 F 04/05/25 04:00 Pulse 66 04/05/25 08:00 Resp 14 04/05/25 08:00 BP 98/62 04/05/25 08:00 Pulse Ox 98 04/05/25 08:00 O2 Del Method Nasal Cannula 04/05/25 04:15 O2 Flow Rate 2 04/05/25 04:15 04/05/25 04/05/25 04/05/25 06:59 14:59 22:59 Intake Total 1460 / 2880 1400 / 1400 Output Total 450 / 475 Balance 1010 / 2405 1400 / 1400 Weight last 48 hrs Weight 70.534 kg Weight 69.354 kg Weight 64.864 kg Physical Exam 2 Const: COMMON NORMALS: no acute distress and patient oriented x3 Resp: COMMON NORMALS: normal respiratory effort, No retractions, No use of accessory muscles and clear to auscultation bilaterally AUSCULTATION: clear to auscultation bilaterally Cardio: COMMON NORMALS: regular rate, regular rhythm, S1 normal heart sound present and S2 normal heart sound present RATE: regular rate RHYTHM: r egular rhythm HEART SOUNDS: S1 normal heart sound present and S2 normal heart sound present GI: COMMON NORMALS: Normal to inspection, nondistended, normoactive bowel sounds present and non-tender Extremity: COMMON NORMALS: no pedal edema Neuro: COMMON NORMALS: patient oriented x3 Psych: COMMON NORMALS: mental status grossly normal Data 04/05/25 08:51 04/05/25 08:51 A&P Assessment and plan 1. Postoperative hypotension: 2. Postoperative hypoxia: 3. Pulmonary embolism: 4. Shock: Plan: Acute pulmonary embolism, with acute hypoxic respiratory failure CT/CT angio chest PE protcl [id number] IMPRESSION: 1. Acute pulmonary embolus involving the RIGHT distal main pulmonary artery extending to the segmental and subsegmental pulmonary arteries worse in the RIGHT middle lobe and RIGHT upper lobe. Normal LEFT main pulmonary artery. 2. Evidence of mild RIGHT heart strain. Recommend correlation with echocardiography. 3. Subsegmental atelectasis in the lung bases. 4. Small esophageal hernia. -Evidence of right heart strain, - Plan - Heparin drip -venous ultrasound - Cardiac echo - Monitor blood pressure closely, maintain MAP rate 65, Levophed as needed - Full code - Heparin drip for DVT prophylaxis Obstructive shock secondary to acute pulmonary embolism as above - Maintain MAP greater than 65 - On IV fluids History of postherpetic neuralgia, continue gabapentin History of removal of deep hardware from lumbar spine the L4/S1 screws bilaterally - Postop day 1 - Hydrocodone for pain control Full code Lovenox for DVT prophylaxis PDMP PDMP Reviewed: Not Reviewed Attestations 2 Medical Necessity Statement*: Patient requires hospitalization for acute pulmonary embolism, obstructive shock, right heart strain Diagnoses Postoperative hypotension I95.81 Postoperative hypoxia R09.02; Z98.890 Pulmonary embolism I26.99 Shock R57.9
[2025-04-05 18:44] LABS: Partial Thromboplastin Time 152.3 SECONDS (23.9-36.7)
--- NOTE | 2025-04-05 19:42 | PC.NURSE ---
Addendum entered by Dolores Mak RN 04/06/25 02:24: 3hr PTT was 30.3, Dr. Robles gave orders to restart heparin gtt at 15mL/hr. Original Note: Critical PTT: Patient's PTT was 152, Dr. Robles gave orders to pause heparin gtt and recheck PTT in 3 hours. Will give further orders depending on results of PTT.
[2025-04-05 22:45] LABS: Partial Thromboplastin Time 30.3 SECONDS (23.9-36.7)
[2025-04-06] VITALS (70 sets, daily range): BP systolic 98–139; BP diastolic 56–83; PULSE 66–100; RESP 14–27; TEMP 36.1–36.8; O2SAT 88–96
--- NOTE | 2025-04-06 02:17 | PC.NURSE ---
Confusion: Patient was found to be sitting on side of bed, this nurse redirected patient and reminded her she was on strict bed rest. Patient was disoriented, stating the year was 1924 and that she was at home, patient did know the month. Inpatient Auditor were equal, was able to touch nose with both fingers, and could drag heels up opposite shins. Dr. Robles was made aware and assessed the patient at bedside and gave orders for an ABG.
[2025-04-06 03:00] LABS: ABG PCO2 36.2 mmHg (35-45); ABG PH Result 7.41 (7.35-7.45); Alveolar-Arterial Oxygen Gradi 11.6 mmHg (5-10); Arterial Blood Gas Hematocrit 30.1 % (37-47); Blood Gas Allen Test Pos; Blood Gas LPM 2.0 %; Blood Gas Operator Identificat BD; Blood Gas Sample Site Brachial, right; Blood Gas Sample Type Arterial; Carboxyhemoglobin 1.0 %THgb (0.4-20.1); Glucose Level-ABG 106.0 mg/dL (70-115); HCO3 ABG 23.1 mmol/L (22-26); Ionized Calcium Level - ABG 1.2 mmol/L (1.1-1.4); Methemoglobin 0.8 % (0.4-1.5); Oxygen Saturation ABG 94.7; PO2 ABG 65.0 mmHg (80.0-100.0); PO2 FiO2 Ratio Arterial Blood 232; Potassium Level - ABG 3.5 mmol/L (3.5-5.0); Sodium Level - ABG 142.0 mmol/L (131-143)
[2025-04-06 05:06] LABS: Hematocrit 29.4 % (36-47); Hemoglobin 9.50 g/dL (11.27-16.99); Mean Corpuscular HGB Conc 32.3 g/dL (30-55); Mean Corpuscular Hemoglobin 33.0 pg (27-33); Mean Corpuscular Volume 102.1 fl (85-98); Nucleated Red Blood Cells % 0 %; Platelet Count 146 10^3/cmm (157-399); Red Blood Count 2.88 10^6/uL (3.85-5.65); White Blood Count 6.37 10^3/uL (3.29-11.43)
[2025-04-06 05:21] LABS: Partial Thromboplastin Time 62.4 SECONDS (23.9-36.7)
[2025-04-06 05:39] LABS: Alanine Aminotransferase 12 U/L (0-33); Albumin Level 4.4 g/dL (3.5-5.2); Alkaline Phosphatase 51 U/L (35-105); Anion Gap 15.4 (5-19); Aspartate Amino Transferase 23 U/L (0-32); Blood Urea Nitrogen 5 mg/dL (8-23); Calcium 8.6 mg/dL (8.5-10.5); Carbon Dioxide 20 mmol/L (22-29); Chloride 108 mmol/L (98-107); Creatinine Clr Calc Pharmacy 61.7932; Globulin 1.3 g/dL (1.3-4.6); Glucose 113 mg/dL (65-115); Osmolality Calculated 288 mOsm/kg (285-295); Potassium 3.4 mmol/L (3.5-5.1); Sodium 140 mmol/L (136-145); Total Protein 5.7 g/dL (6.6-8.7)
[2025-04-06 05:42] LABS: NT Pro B Type Natriuretic Pept 2287 pg/mL (0-125)
[2025-04-06] MEDS: albumin 25 G/100 ML BAG 60 G IV (06:03)
[2025-04-06] MEDS: HYDROcodone-acetaminophen 5-325 mg Tablet 1 TAB PO ×2 (06:09→12:55)
[2025-04-06] MEDS: HYDROmorphone 0.5 MG/0.5 ML INJ IVP ×2 (08:15→21:08)
[2025-04-06] MEDS: pantoprazole 40 mg SDV IVP ×2 (08:18→21:14)
[2025-04-06 11:51] LABS: Partial Thromboplastin Time 55.9 SECONDS (23.9-36.7)
--- NOTE | 2025-04-06 12:29 | P.PN_ITS ---
Subjective 2 Subjective: Patient was alert oriented x 3, follow commands, no lightheadedness, no dizziness, no fevers, no chills she has not had a bowel movement, Vitals/I&O/Wt Last Vital Signs Temp 97.0 F L 04/06/25 04:00 Pulse 70 04/06/25 10:00 Resp 19 H 04/06/25 10:00 BP 118/65 04/06/25 10:00 Pulse Ox 90 04/06/25 10:00 O2 Del Method Room Air 04/06/25 06:00 O2 Flow Rate 2 04/06/25 04:15 04/05/25 04/06/25 04/06/25 22:59 06:59 14:59 Intake Total 276 / 1676 201.75 / 1877.75 300 / 300 Output Total 1600 / 1600 650 / 2250 Balance -1324 / 76 -448.25 / -372.25 300 / 300 Weight last 48 hrs Weight 67.5 kg Weight 70.534 kg Weight 69.354 kg Physical Exam 2 Const: COMMON NORMALS: no acute distress and patient oriented x3 Resp: COMMON NORMALS: normal respiratory effort, No retractions, No use of accessory muscles and clear to auscultation bilaterally AUSCULTATION: clear to auscultation bilaterally Cardio: COMMON NORMALS: regular rate, regular rhythm, S1 normal heart sound present and S2 normal heart sound present RATE: regular rate RHYTHM: r egular rhythm HEART SOUNDS: S1 normal heart sound present and S2 normal heart sound present GI: COMMON NORMALS: Normal to inspection, nondistended, normoactive bowel sounds present and non-tender Extremity: COMMON NORMALS: no pedal edema Neuro: COMMON NORMALS: patient oriented x3 Psych: COMMON NORMALS: mental status grossly normal Urinary Catheter Management: Reyes: Cath Placed During This Visit: yes Reason for Continuing Indwelling Catheter: Accurate Measurement of Urinary Output in Critically Ill Patients Urinary Catheter Date of Insertion: 04/05/25 Urinary Catheter Time of Insertion: 16:00 Data 04/06/25 04:49 04/06/25 04:49 A&P Assessment and plan 1. Postoperative hypotension: 2. Postoperative hypoxia: 3. Pulmonary embolism: 4. Shock: Plan: Acute pulmonary embolism, with acute hypoxic respiratory failure CT/CT angio chest PE protcl [id number] IMPRESSION: 1. Acute pulmonary embolus involving the RIGHT distal main pulmonary artery extending to the segmental and subsegmental pulmonary arteries worse in the RIGHT middle lobe and RIGHT upper lobe. Normal LEFT main pulmonary artery. 2. Evidence of mild RIGHT heart strain. Recommend correlation with echocardiography. 3. Subsegmental atelectasis in the lung bases. 4. Small esophageal hernia. -Evidence of right heart strain, - Plan - Heparin drip -venous ultrasound negative for DVT - Cardiac echo CONCLUSIONS Normal left ventricular size and systolic function, EF 64%. No regional wall motion abnormalities. Normal appearance of the interatrial septum. Trace aortic valve regurgitation. Thickened aortic valve. There is no pericardial effusion. There are no intracardiac masses. No similar previous studies are available for comparison - Monitor blood pressure closely, maintain MAP rate 65, Levophed as needed - Full code - Heparin drip for DVT prophylaxis Obstructive shock secondary to acute pulmonary embolism as above - Maintain MAP greater than 65 - On IV fluids as needed History of postherpetic neuralgia, continue gabapentin History of removal of deep hardware from lumbar spine the L4/S1 screws bilaterally - Postop day 1 - Hydrocodone for pain control Full code Lovenox for DVT prophylaxis PDMP PDMP Reviewed: Not Reviewed Attestations 2 Medical Necessity Statement*: Patient requires hospitalization for acute pulmonary embolism, respiratory failure Diagnoses Postoperative hypotension I95.81 Postoperative hypoxia R09.02; Z98.890 Pulmonary embolism I26.99 Shock R57.9
[2025-04-06] MEDS: polyethylene glycol 3350 Pkt 17 gm PO (12:56)
[2025-04-06] MEDS: morphine 4 mg/mL SDV 1 mL 1 MG IVP (14:55)
--- NOTE | 2025-04-06 15:32 | PC.SOCIAL ---
IMM Updated Updated pt on IMM. No questions voiced. Provided pt a copy. Initialed, dated, & timed a copy & placed in chart.
[2025-04-06 18:29] LABS: Partial Thromboplastin Time 56.9 SECONDS (23.9-36.7)
[2025-04-06] MEDS: heparin drip 25,000 UNIT/500 ML PREMIX 15 UNIT IV (21:21)
[2025-04-06] MEDS: MELATONIN 3 MG TABLET PO (22:40)
[2025-04-07] VITALS (30 sets, daily range): BP systolic 107–146; BP diastolic 67–87; PULSE 73–99; RESP 12–23; TEMP 36.6–37.3; O2SAT 90–98
[2025-04-07] MEDS: HYDROcodone-acetaminophen 5-325 mg Tablet 1 TAB PO ×2 (00:25→08:31)
[2025-04-07 02:49] LABS: Hematocrit 31.3 % (36-47); Hemoglobin 10.40 g/dL (11.27-16.99); Mean Corpuscular HGB Conc 33.2 g/dL (30-55); Mean Corpuscular Hemoglobin 32.6 pg (27-33); Mean Corpuscular Volume 98.1 fl (85-98); Nucleated Red Blood Cells % 0 %; Platelet Count 183 10^3/cmm (157-399); Red Blood Count 3.19 10^6/uL (3.85-5.65); White Blood Count 7.06 10^3/uL (3.29-11.43)
[2025-04-07 02:59] LABS: Partial Thromboplastin Time 62.1 SECONDS (23.9-36.7)
[2025-04-07 03:04] LABS: Alanine Aminotransferase 13 U/L (0-33); Albumin Level 4.4 g/dL (3.5-5.2); Alkaline Phosphatase 53 U/L (35-105); Anion Gap 14.9 (5-19); Aspartate Amino Transferase 23 U/L (0-32); Blood Urea Nitrogen 5 mg/dL (8-23); Calcium 8.8 mg/dL (8.5-10.5); Carbon Dioxide 21 mmol/L (22-29); Chloride 109 mmol/L (98-107); Creatinine Clr Calc Pharmacy 61.7932; Globulin 2.0 g/dL (1.3-4.6); Glucose 112 mg/dL (65-115); Osmolality Calculated 290 mOsm/kg (285-295); Potassium 3.9 mmol/L (3.5-5.1); Sodium 141 mmol/L (136-145); Total Protein 6.4 g/dL (6.6-8.7)
[2025-04-07] MEDS: HYDROmorphone 0.5 MG/0.5 ML INJ IVP (03:14)
[2025-04-07 03:38] LABS: NT Pro B Type Natriuretic Pept 1812 pg/mL (0-125)
[2025-04-07] MEDS: polyethylene glycol 3350 Pkt 17 gm PO (06:06)
[2025-04-07] MEDS: pantoprazole 40 mg SDV IVP (09:12)
--- NOTE | 2025-04-07 12:38 | P.DS_ITS ---
Discharge Providers Date of Admission: 04/04/25 16:55 Date of Discharge: April 07, 2025 Attending Provider at Admission: Domingo Keane MD Attending Provider at Discharge: Sadi Hernandez DO Primary Care Provider: Loly De Santiago DO Diagnoses at Discharge Discharge Diagnosis 1. Postoperative hypotension: 2. Postoperative hypoxia: 3. Pulmonary embolism: 4. Shock: Reason for Visit Reason for Visit: T84.84XA Hospital Course Hospital Course Sarahi Anton is a 69 year old female who presents to [facility] for removal of deep hardware of her lumbar spine L4/S1 screws bilaterally, patient was seen in postop recovery, with soft blood pressures, re quiring 1 L. Currently patient is alert oriented x 3, follow commands, no lightheadedness, dizziness, chest pain, palpitations, no shortness of breath, no no cardiovascular history, history of smoking and history of COPD no history of asthma, no history of sleep apnea or coronary, no cough, recent illness, flank pain, dysuria no abdominal pain no diarrhea Patient was admitted to [facility] for acute pulmonary embolism, with acute hypoxic respiratory failure, obstructive shock CT/CT angio chest PE protcl [id number] IMPRESSION: 1. Acute pulmonary embolus involving the RIGHT distal main pulmonary artery extending to the segmental and subsegmental pulmonary arteries worse in the RIGHT middle lobe and RIGHT upper lobe. Normal LEFT main pulmonary artery. 2. Evidence of mild RIGHT heart strain. Recommend correlation with echocardiography. 3. Subsegmental atelectasis in the lung bases. 4. Small esophageal hernia. -Evidence of right heart strain -venous ultrasound negative for DVT - Cardiac echo CONCLUSIONS Normal left ventricular size and systolic function, EF 64%. No regional wall motion abnormalities. Normal appearance of the interatrial septum. Trace aortic valve regurgitation. Thickened aortic valve. There is no pericardial effusion. There are no intracardiac masses. No similar previous studies are available for comparison - Monitored in the ICU - Managed on heparin drip - IV hydration - Oxygen therapy - Patient overall clinically improved, received PT OT, overall clinically improved - Will be discharged on Eliquis therapy, with close follow-up with primary care - Discussed risk of bleeding associated with Eliquis, monitor for bloody or hematemesis/hemoptysis, black stools, or falls, if so come back to the emergency room Physical Exam Const: COMMON NORMALS: no acute distress and patient oriented x3 Resp: COMMON NORMALS: normal respiratory effort, No retractions, No use of accessory muscles and clear to auscultation bilaterally AUSCULTATION: clear to auscultation bilaterally Cardio: COMMON NORMALS: regular rate, regular rhythm, S1 normal heart sound present and S2 normal heart sound present RATE: regular rate RHYTHM: regular rhythm HEART SOUNDS: S1 normal heart sound present and S2 normal heart sound present GI: COMMON NORMALS: Normal to inspection, nondistended, normoactive bowel sounds present and non-tender Extremity: COMMON NORMALS: no pedal edema Neuro: COMMON NORMALS: patient oriented x3 Psych: COMMON NORMALS: mental status grossly normal Urinary Catheter Management: Reyes: Cath Placed During This Visit: yes, but has since been removed by the nurse Reason for Continuing Indwelling Catheter: Decision to DC Catheter Urinary Catheter Date of Insertion: 04/05/25 Urinary Catheter Time of Insertion: 16:00 Date Urinary Catheter Removed: 04/07/25 Time Urinary Catheter Discontinued: 09:00 Discharge Data Studies Completed and Pending Completed Studies During Hospitalization Category Date Time Status CT angio chest PE protcl [id number] Stat Cat Scan 04/05/25 08:07 Completed XR chest 1V portable [id number] Routine Exams 04/04/25 16:40 Completed XR lumbar spine 1V [id number] Routine Exams 04/04/25 12:48 [place] [id number] Routine Ultrasound 04/05/25 12:47 Completed CV. echo complete* [id number] Routine Ultrasound 04/05/25 09:41 Completed Pending at discharge Category Date Time Status Complete Blood Count w/Auto AM LABS Lab 04/08/25 04:00 Ordered Comprehensive Metabolic Panel AM LABS Lab 04/08/25 04:00 Ordered NT Pro B Type Natriuretic Pept QAM Lab 04/08/25 06:00 Ordered PTT [Partial Thromboplastin Time] Timed Lab 04/07/25 15:00 Ordered Radiology Impressions Lumbar Spine X-Ray 04/04/25 12:48 Impression: Removal of pedicle screws and connecting rods from the lumbar spine. Chest X-Ray 04/04/25 16:40 IMPRESSION: Chronic changes and bibasilar scarring with no acute findings. Chest CTA 04/05/25 08:07 IMPRESSION: 1. Acute pulmonary embolus involving the RIGHT distal main pulmonary artery extending to the segmental and subsegmental pulmonary arteries worse in the RIGHT middle lobe and RIGHT upper lobe. Normal LEFT main pulmonary artery. 2. Evidence of mild RIGHT heart strain. Recommend correlation with echocardiography. 3. Subsegmental atelectasis in the lung bases. 4. Small esophageal hernia. Notified Domingo Keane MD at 04/05/2025 9:41 AM. Laboratory Results WBC 7.06 10^3/uL (3.29-11.43) 04/07/25 02:33 RBC 3.19 10^6/uL (3.85-5.65) L 04/07/25 02:33 Hgb 10.40 g/dL (11.27-16.99) L 04/07/25 02:33 Hct 31.3 % (36-47) L 04/07/25 02:33 MCV 98.1 fl (85-98) H 04/07/25 02:33 MCH 32.6 pg (27-33) 04/07/25 02:33 MCHC 33.2 g/dL (30-55) 04/07/25 02:33 RDW 12.6 % (12.1-15.1) 04/07/25 02:33 Plt Count 183 10^3/cmm (157-399) 04/07/25 02:33 MPV 10.0 fL (7.4-10.4) 04/07/25 02:33 Neut % (Auto) 64.6 % 04/07/25 02:33 Lymph % (Auto) 23.4 % 04/07/25 02:33 [place] % (Auto) 9.2 % 04/07/25 02:33 Eos % (Auto) 2.4 % 04/07/25 02:33 Baso % (Auto) 0.3 % 04/07/25 02:33 Neut # (Auto) 4.56 10^3/uL (1.8-7.7) 04/07/25 02:33 Lymph # (Auto) 1.7 10^3/uL (0.8-4.8) 04/07/25 02:33 [place] # (Auto) 0.7 10^3/uL (0.2-0.9) 04/07/25 02:33 Eos # (Auto) 0.2 10^3/uL (0.0-0.8) 04/07/25 02:33 Baso # (Auto) 0.0 10^3/uL (0.0-0.1) 04/07/25 02:33 Nucleated RBC % (auto) 0 % 04/07/25 02:33 Nucleated RBCs # 0.0 /100WBC 04/07/25 02:33 APTT 62.1 SECONDS (23.9-36.7) H 04/07/25 02:33 Specimen Type Arterial 04/06/25 02:50 Sample Site Brachial, right 04/06/25 02:50 ABG pH 7.41 (7.35-7.45) 04/06/25 02:50 ABG pCO2 36.2 mmHg (35-45) 04/06/25 02:50 ABG pO2 65.0 mmHg (80.0-100.0) L 04/06/25 02:50 ABG PO2/FiO2 Ratio 232 04/06/25 02:50 ABG HCO3 23.1 mmol/L (22-26) 04/06/25 02:50 ABG O2 Saturation 94.7 04/06/25 02:50 ABG Base Excess -1.2 mmol/L (-2.0-2.0) 04/06/25 02:50 Juan Manuel Test Pos 04/06/25 02:50 A-a O2 Gradient 11.6 mmHg (5-10) H 04/06/25 02:50 Hematocrit 30.1 % (37-47) L 04/06/25 02:50 Hgb O2 Saturation 93.0 % (95-100) L 04/06/25 02:50 Carboxyhemoglobin 1.0 %THgb (0.4-20.1) 04/06/25 02:50 Methemoglobin 0.8 % (0.4-1.5) 04/06/25 02:50 Total Hemoglobin 9.8 g/dL (12-16) L 04/06/25 02:50 Sodium 142.0 mmol/L (131-143) 04/06/25 02:50 Potassium 3.5 mmol/L (3.5-5.0) 04/06/25 02:50 Glucose 106.0 mg/dL (70-115) 04/06/25 02:50 Ionized Calcium 1.2 mmol/L (1.1-1.4) 04/06/25 02:50 O2 Delivery Device Nc 04/06/25 02:50 O2 Liters/Min 2.0 % 04/06/25 02:50 FiO2 28.0 % 04/06/25 02:50 Stock Worker And Deliverer ID Bd 04/06/25 02:50 Sodium 141 mmol/L (136-145) 04/07/25 02:33 Potassium 3.9 mmol/L (3.5-5.1) 04/07/25 02:33 Chloride 109 mmol/L (98-107) H 04/07/25 02:33 Carbon Dioxide 21 mmol/L (22-29) L 04/07/25 02:33 Anion Gap 14.9 (5-19) 04/07/25 02:33 BUN 5 mg/dL (8-23) L 04/07/25 02:33 Creatinine 0.5 mg/dL (0.5-0.9) 04/07/25 02:33 GFR Calculation 122.0 mL/min (90-130) 04/07/25 02:33 Glucose 112 mg/dL (65-115) 04/07/25 02:33 POC Glucose 114 mg/dL (70-110) H 04/04/25 18:02 Calculated Osmolality 290 mOsm/kg (285-295) 04/07/25 02:33 Lactic Acid 0.8 mmol/L (0.5-2.2) 04/04/25 22:50 Calcium 8.8 mg/dL (8.5-10.5) 04/07/25 02:33 Total Bilirubin 0.4 mg/dL (0.15-1.2) 04/07/25 02:33 AST 23 U/L (0-32) 04/07/25 02:33 ALT 13 U/L (0-33) 04/07/25 02:33 Alkaline Phosphatase 53 U/L (35-105) 04/07/25 02:33 Troponin T Baseline 18 ng/L (0-10) H 04/04/25 22:50 Troponin T 120 Minute 15.11 ng/L (0-10) H 04/05/25 00:59 Delta Troponin T -2.89 ABS# (0-10) L 04/05/25 00:59 Troponin T Hi Sens 6Hr 19.79 ng/L (0-10) H 04/05/25 05:01 Troponin T Hi Sens 6Hr Delta 1.79 ng/L (0-12) 04/05/25 05:01 C-Reactive Protein 11.7 mg/L (0.0-4.9) H 04/04/25 22:50 NT-Pro-B Natriuret Pep 1812 pg/mL (0-125) H 04/07/25 02:33 Total Protein 6.4 g/dL (6.6-8.7) L 04/07/25 02:33 Albumin 4.4 g/dL (3.5-5.2) 04/07/25 02:33 Globulin 2.0 g/dL (1.3-4.6) 04/07/25 02:33 TSH 0.83 uIU/mL (0.27-4.20) 04/05/25 08:51 Random Cortisol 3.46 ug/dL (2.47-19.5) 04/05/25 08:51 Urine Color Yellow (Yellow) 04/05/25 02:30 Urine Appearance Clear (CLEAR) 04/05/25 02:30 Urine pH 7.0 (5-7) 04/05/25 02:30 Ur Specific [place] 1.015 (1.005-1.030) 04/05/25 02:30 Urine Protein Negative (Negative) 04/05/25 02:30 Urine Glucose (UA) Negative (Normal) 04/05/25 02:30 Urine Ketones Trace (Negative) 04/05/25 02:30 Urine Blood Negative (Negative) 04/05/25 02:30 Urine Nitrate Negative (Negative) 04/05/25 02:30 Urine Bilirubin Negative (Negative) 04/05/25 02:30 Urine Urobilinogen 0.2 mg/dL (Negative) 04/05/25 02:30 Ur Leukocyte Esterase Negative (Negative) 04/05/25 02:30 Urine RBC 3-5 /hpf (0-2) 04/05/25 02:30 Urine WBC 0-5 /hpf (0-5) 04/05/25 02:30 Ur Squamous Epith Cells 0-5 /hpf (0-5) 04/05/25 02:30 Amorphous Sediment Not Reportable 04/05/25 02:30 Urine Bacteria None seen /hpf (NONE) 04/05/25 02:30 Hyaline Casts 0.40 /lpf 04/05/25 02:30 Vitals Last Vital Signs Temp 98.4 F 04/07/25 04:00 Pulse 95 04/07/25 11:30 Resp 22 H 04/07/25 11:30 BP 146/75 04/07/25 11:30 Pulse Ox 97 04/07/25 11:30 O2 Del Method Room Air 04/07/25 06:00 O2 Flow Rate 2 04/06/25 04:15 Discharge Plan Discharge Patient Disposition: Home Condition: Stable Prescriptions: New acyclovir 800 mg tablet 800 mg PO TID 7 Days Qty: 21 0RF hydrocodone-acetaminophen 5-325 mg tablet 1 - 2 tab PO .Q4-6H Qty: 40 0RF Eliquis DVT-PE Treat 30D Start 5 mg (74 tabs) tablets,dose pack See Rx Instructions .ROUTE .COMPLEX Qty: 74 0RF Rx Instructions: orally per package directions Continued One-A-Day Women's 50 Plus 400-20 mcg tablet 1 tab PO QDAY buspirone 5 mg tablet 5 mg PO BID PRN (Reason: anxiety) Qty: 60 0RF oxybutynin chloride 10 mg tablet extended release 24hr 10 mg PO DAILY Qty: 90 1RF escitalopram oxalate [Lexapro] 10 mg tablet 10 mg PO DAILY Qty: 90 0RF gabapentin 300 mg capsule 300 mg PO TID Qty: 90 0RF bupropion HCl [Wellbutrin XL] 300 mg tablet extended release 24 hr 450 mg PO QAM Qty: 135 0RF Held ibuprofen 800 mg tablet 800 mg PO Q8H Hold Instructions: Resume on 04/06/25. Rx Instructions: TAKE 1 TABLET BY MOUTH EVERY 8 HOURS NEEDED FOR PAIN Discharge Order = DC NOW: Discharge Order (Routine); Ordered 04/07/25 Ordered By: Domingo Keane Referrals: Av Kelly MD [Physician, Pulmonology] - 04/11/25 1:45 pm Referral Note: Sadi Archuleta DO [Physician, Orthopedics] - 04/12/25 8:45 am Referral Note: Discharge Diet: Advance as tolerated Discharge Activity: Limit activity as instructed Patient Instructions: Hydrocodone/Acetaminophen (By mouth) (Vicodin, [place]), Acyclovir (By mouth), Pulmonary Embolism (DC), Acute Wound Care (DC), Hypotension (DC), Hypoxia (GEN), Fall Prevention (DC), Hardware Removal (DC), Opioid Safety, Post Anesthesia Care, Patient Portal & Uma Instructions Activity Restrictions/Additional Instructions: Thank you for choosing [facility] for your care! The following is a list of instructions, from your provider, to follow upon your discharge to ensure you have the optimal recovery from your recent injury or surgery. Follow-up care is a anton part of your treatment and safety. Be sure to make and go to all appointments, and call your doctor if you are having problems. If you do not already have a follow-up appointment made, call Dr. Hernandez's office in the next 1-3 days to make follow up appointment for 2 weeks at [phone]. It is also a good idea to know your test results and keep a list of the medicines you take. Medications will be prescribed for you at your provider?s discretion. These medications are to be used as instructed;if they are taken more often that prescribed they will not be refilled early and in most cases will not be refilled at all. > When a refill is needed,you should contact our office 2-3 business days beforeyour prescription runs out. Medications will NOTbe refilled by suppression crew leader providers after hours! > Many pain medications contain Tylenol (Acetaminophen). Do not consume more than 4,000 mg of Tylenol per day in total with any combination of medications. > Pain medications can cause constipation. Please use an over the counter stool softener as directed, while taking pain medications. Consult your local pharmacist with questions or recommendations on stool softeners. If constipation persists, contact our office or your primary care provider. > While under our care,you are not to receive pain medications or other controlled substances from any other provider unless our office is notified and approves. Any attempts to do so will result in refusal to prescribe any further pain medications and possible dismissal from our practice. ? Your wound and/or dressing should remain clean and dry for 2 days after surgery. On postoperative day 2 (48 hours after your surgery) the dressing (if present) should be removed and it is okay to shower and get the incision wet. Pat dry afterwards. No further dressing should be required from that point on. Do not put any creams or ointments on the incision > It is normal for there to be a small amount of discharge (bloody or blood tinged) present from a surgical wound for the first 1-3days. > The wound should be examined twice a day for signs of infection. Mild redness or bruising is to be expected but indications that an infection maybe starting would include;An increase in redness, swelling, or discharge, a foul odor present around the incision, and/or a fever greater than 101 ?F ? Showering is permitted, however we ask that you do not take a bath, sit in a whirlpool / Jacuzzi, or go swimming for 1 month. For only the first 2 days after surgery, lt wilt be necessary for you to cover your wound/dressing with plastic and tape to keep it dry. ? Walking is essential for the healing process after surgery. We would like you to slowly advance your walking. This should be done on relatively flat clear ground (inside or out) or can be done on a treadmill. Remember this goal does not have to happen all at once, slowly increase your distance and duration. This can be broken into more more than one walk per day as tolerated. Patients who walk as directed after surgery rarely require Physical Therapy. In the unlikely event this issue arises your provider will direct hospital staff to make the appropriate arrangements. ? No lifting over 5 pounds {a gallon of milk) or bending/twisting until further notice. Each of these activities places an unnecessary amount of stress onto the body and can impede the delicate healing process. > Instead of bending at the waist, keep your back straight and bend at the knees. > Instead of twisting your torso, keep your back straight and turn your entire body with your feet. ? You may sleep in any position which makes you comfortable.Many patients find comfort sleeping in a reclining chair. It is not abnormal to have difficulty sleeping for the first several weeks following your surgery. We recommend trying Benadryl or Tylenol PM as directed to help with your sleeping difficulties. Both medications are over the counter and available without prescription. ? NO SMOKING!!!Smoking dramatically increases the probability of developing postoperative wound infections. ? Common complaints after lumbar and/or thoracic spine surgery include, but are not limited to: numbness and/or tingling in the legs, pain around the incision and surrounding tissues, muscle spasms, or stiffness of the middle to low back. Contact our office if these symptoms persist or if an acute change occurs. ? No driving for the first 3-5 days, and not while taking narcotics until seen at your follow-up appointment and cleared.There are no restrictions for riding on short trips, however if you take a longer trip, arrangements should be made to make regular stops to get out of the vehicle and stretch . ? Swelling is an unfortunate event that will take place with any surgery and is the primary source of your postoperative discomfort. While walking and regular approved activities helps control inflammation, there are additional steps you can take to minimize swelling. > Place ice over the surgical site and surrounding tissue for twenty minutes, followed by applying a low/medium heat (heating pad) for an additional twenty minutes every 1-2 hours as needed for pain relief. > You may use of over the counter anti-inflammatory medications (Ibuprofen, Motrin, Aleve, Advil, etc) as directed on the package label. These t ypes of medicines will significantly reduce the amount of discomfort you experience after surgery from swelling. It should be noted that if you have an allergy to any of these medications, or a history of ulcers or kidney disease you should consult your primary care provider prior to starting these medications. Discharge Attestations Time Spent in Discharge Care*: greater than 30 min Quality Metrics Clinical Quality Measures [ No reported AMI, CVA or VTE this stay] Coding Level of Care Code 79769 Total time (in minutes) for Discharge: 45 Diagnoses Postoperative hypotension I95.81 Postoperative hypoxia R09.02; Z98.890 Pulmonary embolism I26.99 Shock R57.9
== END 2025-04-07 12:35 | disposition home or self-care (01) | DRG 515 ==
LOC: MEDSURG 16:56 → ICU 17:47
PROVIDERS: Internal Medicine; Admitting Provider Family Medicine; PCP Family Medicine; Visit Provider Orthopaedic Surgery
PROC: 0SP304Z Removal of Internal Fixation Device from Lumbosacral Joint, Open Approach (ICD-10-PCS; principal; 2025-04-04 08:30)
DX: T84.84XA Pain due to internal orthopedic prosthetic devices, implants and grafts, initial encounter (principal); I26.99 Other pulmonary embolism without acute cor pulmonale; J96.01 Acute respiratory failure with hypoxia; R57.8 Other shock; I95.81 Postprocedural hypotension; F41.9 Anxiety disorder, unspecified; F32.A Depression, unspecified; M79.2 Neuralgia and neuritis, unspecified; Z87.891 Personal history of nicotine dependence; Z99.81 Dependence on supplemental oxygen; Z96.698 Presence of other orthopedic joint implants; Y79.8 Miscellaneous orthopedic devices associated with adverse incidents, not elsewhere classified
CPT/HCPCS: 36415; 36416; 36600; 51702; 71045; 71275; 72020; 76000; 80051; 80053; 81001; 82330; 82533; 82805; 82962; 83605; 83880; 84443; 84484; 85025; 85730; 86140; 93005; 93306; 93970; 94760; 97116; 97163; 97167; J0131; J0690; J1171; J1644; J1885; J2250; J2270; J2405; J2470; J2704; J3010; J3373; J3490; J7030; J8499; J9999; P9046

== ENCOUNTER → 2025-04-11 13:40 | Outpatient (BNVA) | payer MEDICARE, SELFPAY | PROVIDERS: PCP Family Medicine; Referring Provider Family Medicine; Visit Provider Internal Medicine | DX: I26.99 Other pulmonary embolism without acute cor pulmonale (principal); Z79.01 Long term (current) use of anticoagulants; Z87.891 Personal history of nicotine dependence | CPT/HCPCS: 99214; Q3014 ==

== ENCOUNTER → 2025-04-12 08:24 | Outpatient (BNVA) | payer MEDICARE, SELFPAY | PROVIDERS: PCP Family Medicine; Visit Provider Orthopaedic Surgery | DX: Z98.890 Other specified postprocedural states (principal); Z48.89 Encounter for other specified surgical aftercare | CPT/HCPCS: 99024 ==

== ENCOUNTER 2025-04-19 14:44 | Oncology outpatient (recurring) (ONCR) | payer MEDICARE, SELFPAY | END 2025-05-01 23:59 | disposition home or self-care (01) | PROVIDERS: PCP Family Medicine; Visit Provider Internal Medicine Medical Oncology | DX: I26.99 Other pulmonary embolism without acute cor pulmonale (principal); D64.9 Anemia, unspecified; R25.2 Cramp and spasm; Z87.891 Personal history of nicotine dependence; Z79.01 Long term (current) use of anticoagulants; Z79.899 Other long term (current) drug therapy | CPT/HCPCS: 99204 ==

== ENCOUNTER → 2025-04-21 15:27 | Outpatient (BNVA) | payer MEDICARE, SELFPAY | PROVIDERS: PCP Family Medicine; Visit Provider Orthopaedic Surgery | DX: Z98.890 Other specified postprocedural states (principal); Z98.1 Arthrodesis status | CPT/HCPCS: 99024; 99214 ==

== ENCOUNTER → 2025-05-17 08:39 | Outpatient (BNVA) | payer MEDICARE, SELFPAY | PROVIDERS: PCP Family Medicine; Visit Provider Orthopaedic Surgery | DX: Z98.890 Other specified postprocedural states (principal); Z98.1 Arthrodesis status | CPT/HCPCS: 99024 ==